=== PATIENT | male | born 1990 | race African-American/Black ===

== ENCOUNTER 2018-05-29 12:39 | Emergency (ER) | payer SELFPAY ==
[2018-05-29 12:41] VITALS: BP 120/81; PULSE 62; RESP 16; TEMP 36.4; O2SAT 100; BMI 31.3
--- NOTE | 2018-05-29 12:50 | ED.RN ---
mood swings, lashing out. has been off zyprexa for several weeks. saw dr at [facility] today per pt was sent here.
--- NOTE | 2018-05-29 12:53 | ED.VISSUMM ---
- ER Visit Summary Date of Service: 05/29/18 Chief Complaint: Prescription refill History of Present Illness: The patient is a 28 M who was sent from the [facility] for prescription refill. He states the process would take too long. He is requesting a refill of his Zyprexa. Physical Examination: Vital signs noted and unremarkable. HEENT exam remarkable for gold caps. Heart is regular without murmur, gallop or rub. Lungs auscultation. Affect is normal. Thought process is normal. Test Results: None Emergency Department Course and Treatment: Prescription for Zyprexa Treatment Plan: Prescription for Zyprexa and follow-up at the [facility] Disposition: Discharged home Impression: Prescription refill This note was generated with Eneedo dictation software. It may contain incorrect words, spelling, and punctuation that were not noted in review of the chart prior to signing ED Disposition - Plan for ED Patient: Disposition: Home or Assisted Living Chief Complaint: Med Refill Instructions: Med Refill Prescriptions: Olanzapine [Zyprexa] 10 mg PO DAILY #30 tab Referrals: [facility] Kimberley Alexandra [Primary Care Provider] -
--- NOTE | 2018-05-29 12:59 | ED.DCSUM_ITS ---
- ER Visit Summary Date of Service: 05/29/18 Chief Complaint: Prescription refill History of Present Illness: The patient is a 28 M who was sent from the [facility] for prescription refill. He states the process would take too long. He is requesting a refill of his Zyprexa. Physical Examination: Vital signs noted and unremarkable. HEENT exam remarkable for gold caps. Heart is regular without murmur, gallop or rub. Lungs auscultation. Affect is normal. Thought process is normal. Test Results: None Emergency Department Course and Treatment: Prescription for Zyprexa Treatment Plan: Prescription for Zyprexa and follow-up at the [facility] Disposition: Discharged home Impression: Prescription refill This note was generated with S[employer]ed App[employer] dictation software. It may contain incorrect words, spelling, and punctuation that were not noted in review of the chart prior to signing ED Disposition - Plan for ED Patient: Disposition: Home or Assisted Living Chief Complaint: Med Refill Instructions: Med Refill Prescriptions: Olanzapine [Zyprexa] 10 mg PO DAILY #30 tab Referrals: [facility] Kimberley Alexandra [Primary Care Provider] -
--- OUTSIDE RECORDS SUMMARY | 2018-08-31 | XMS RPT_ITS ---
:1990 Author Organization [facility] Care Team Providers Name Role Phone Rianna CAGE, Violetta Arce Attending Unavailable Sawyer Gunter Attending Unavailable CLINIC, [facility] Primary Care Unavailable PROBLEMS PROBLEMS No Problem Records FoundPROCEDURES PROCEDURES No Procedure Records FoundRESULTS RESULTS CTPCR Collected: 06/23/2018 Status: F Source: [facility] 1:05 PM [facility] REPOSITORY TYPE CODE TESTS RESULT OUT OF RANGE REFERENCE UNITS LAB SCCTPCR(LO INC) Chlam Urine Source LAB CTPCR1(KJ Negative NC) Unknown Positive C.trachomati s PCR Result Comment: Molecular (PCR) assay performed on the Ross[employer] Idalia 4800 system. LAB CTINT(LOINC) See CT Unknown Interp N C. trachomatis Interp Result Comment: DNA detection by non-culture technique (PCR). Sensitivity testing not available with this method. This organism causes a reportable disease Results have been reported to the [place] [facility] See CT Interp P Performed By: #### CTPCR, NGPCR1 #### [facility] [address] [place] [id number] NGPCR Collected: 06/23/2018 Status: F Source: [facility] 1:05 PM [facility] REPOSITORY TYPE CODE TESTS RESULT OUT OF REFERENCE UNITS RANGE LAB [facility](LOIN C) GC PCR Source Urine LAB NGPCR(LOIN Negative C) N. gonorrhoeae (PCR) Negative Result Comment: Molecular (PCR) assay performed on the Ross[employer] Idalia 4800 System. LAB NGINT(LOINC) See NG Interp N N. gonorrhoeae Interp Result Comment: N. gonorrhoeae DNA not detected. Specimen is presumptive negative for N. gonorrhoeae. A negative result does not preclude Neisseria gonorrhoeae infection because results depend on adequate specimen collection, absence of inhibitors, and sufficient DNA to be detected. See NG Interp N Performed By: #### CTPCR, NGPCR1 #### [place] [address] RPR Collected: 06/23/2018 Status: F Source: [facility] 12:54 PM [facility] REPOSITORY TYPE CODE TESTS RESULT OUT OF RANGE REFERENCE UNITS LAB RPR(LOINC) Non-Reactive RPR Non-Reactive Result Comment: The RPR test is a non- treponemal assay useful as an aid in the diagnosis of primary and secondary syphilis. It converts to positive generally within 2 weeks after the appearance of a lesion. This test is also useful for monitoring response to antibiotic therapy. A positive RPR screening test will be followed by the FTA ABS test. False positive RPR tests may occur in 1) patients with underlying autoimmune disorders, 2) elderly patients, 3) , and 4) other conditions with abnormal serum globulins. Performed By: #### RPR #### [place] [address] EMERGENCY DEPARTMENT Observed: 05/29/2018 Status: F Source: [facility] SUMMARY 12:59 PM [facility] REPOSITORY [facility] Medical Records Department [address] [place] [id number] Emergency Department Summary 05/29/18 1253 MR#: [id number] Acct: [id number] Name: NICOLE CORNELIUS Rep #: [id number] : 1990 28 From: Sawyer Gunter MD PCP: [facility] Status: PRE ER - ER Visit Summary Date of Service: 05/29/18 Chief Complaint: Prescription refill History of Present Illness: The patient is a 28 M who was sent from the [facility] for prescription refill. He states the process would take too long. He is requesting a refill of his Zyprexa. Physical Examination: Vital signs noted and unremarkable. HEENT exam remarkable for gold caps. Heart is regular without murmur, gallop or rub. Lungs auscultation. Affect is normal. Thought process is normal. Test Results: None Emergency Department Course and Treatment: Prescription for Zyprexa Treatment Plan: Prescription for Zyprexa and follow-up at the [facility] Disposition: Discharged home Impression: Prescription refill This note was generated with HoneyComb dictation software. It may contain incorrect words, spelling, and punctuation that were not noted in review of the chart prior to signing ED Disposition - Plan for ED Patient: Disposition: Home or Assisted Living Chief Complaint: Med Refill Instructions: Med Refill Prescriptions: Olanzapine [Zyprexa] 10 mg PO DAILY #30 tab Referrals: Kalin Alexandra,Kimberley Rm [Primary Care Provider] - What to do if you have Problems For any increased pain, shortness of breath, bleeding, nausea or vomiting, chest pain, or any unexpected problems, contact your Primary Care Provider. Call [facility] ([phone]) or report to the closest Emergency Room. Call 911 if necessary. 05/29/18 1259 <Electronically signed by Sawyer Gunter MD> Date Sawyer Gunter MD Cosigner Signature (If Indicated): Date CC: No Primary Care Physician; [facility] ALLERGIES ALLERGIES DATE TYPE / CODE NAME / CODE REACTION SEVERITY SOURCE 02/27/2017 Drug No Known Unknown [facility] Allergy/4160 Allergies/F00 [facility] 92436(SNOMED [id number](RXNOR Repository CT) M) ENCOUNTERS ENCOUNTERS ADMIT/DISCHARGE ACCOUNT NUMBER ADMITTING ENCOUNTER LOCATION SOURCE CLASS 06/23/2018/06/23/19 [id number] Emergency BBuilding:[facility] [place] [address] [place] [address] Repository 05/29/2018/05/29/20 [id number] Emergency [place] [address] ding:ED Repository PAYERS PAYERS ENCOUNTER GUARANTOR PAYER SUBSCRIBER SOURCE 06/23/2018 NICOLE J Primary NICOLE J [facility] BROTHERSDOB: Insurance:SELF PAY BROTHERSDOB: [facility] INSCOPolicy Number: [id number] Repository [facility] Effective [place], [place] Date:2018-06-23 [place] [address] [id number] Name:[id number]: () 05/29/2018 NICOLE J Primary NOT GIVENUNK [place] [id number] Insurance:SELF PAY [place], [place] Number: Effective Repository [id number]: [phone]) Date:2018-05-29 [phone] ()
== END 2018-05-29 13:24 | disposition home or self-care (01) ==
PROVIDERS: Emergency Provider Emergency Medicine
DX: Z76.0 Encounter for issue of repeat prescription (principal); Z72.0 Tobacco use
CPT/HCPCS: 99282

== ENCOUNTER 2018-09-04 12:00 | Emergency (ER) | payer SELFPAY ==
[2018-09-04 12:02] VITALS: BP 134/84; PULSE 83; RESP 16; TEMP 36.6; O2SAT 99; BMI 27.6
--- NOTE | 2018-09-04 12:14 | ED.VISSUMM ---
- ER Visit Summary Date of Service: 09/04/18 Chief Complaint: Medication refill History of Present Illness: The patient is a 28 M who presents for medication refill of his Zyprexa and Depakote. Patient states he took his last dose is today. Patient states he normally takes Zyprexa 10 mg daily and the lowest dose of Depakote twice daily. Patient states he was unable to get an appointment at the [facility] until the end of next month. Patient denies any other symptoms. Physical Examination: Vital signs are stable. Patient is afebrile. Patient is in no acute distress. Oral mucosa is pink and moist. Neck is supple. Trachea is midline. There is no JVD noted. Heart was regular rate and rhythm. Lungs are clear and equal bilateral. Abdomen is soft. Bowel sounds are normal. There is no tenderness. There is no guarding noted. Skin is warm dry. Cranial nerves II through XII are intact. There are no focal motor or sensory deficits noted. The remaining physical exam is within normal limits. Emergency Department Course and Treatment: Patient was given a month's supply of his medications. Patient was instructed to follow-up with his primary care physician within the next month for further refills of his medications. Patient understood and was agreeable with the plan. All questions were answered. Disposition: Discharge home Impression: Medication refill This note was generated with [employer] dictation software. It may contain incorrect words, spelling, and punctuation that were not noted in review of the chart prior to signing ED Disposition - Plan for ED Patient: Diagnosis: Medication refill Instructions: Med Refill Prescriptions: Olanzapine [Zyprexa] 10 mg PO DAILY #30 tab Divalproex Sodium [Depakote] 125 mg PO BIDCM #60 tab [facility] - 1 Week
--- NOTE | 2018-09-04 12:18 | ED.DCSUM_ITS ---
- ER Visit Summary Date of Service: 09/04/18 Chief Complaint: Medication refill History of Present Illness: The patient is a 28 M who presents for medication refill of his Zyprexa and Depakote. Patient states he took his last dose is today. Patient states he normally takes Zyprexa 10 mg daily and the lowest dose of Depakote twice daily. Patient states he was unable to get an appointment at the [facility] until the end of next month. Patient denies any other symptoms. Physical Examination: Vital signs are stable. Patient is afebrile. Patient is in no acute distress. Oral mucosa is pink and moist. Neck is supple. Trachea is midline. There is no JVD noted. Heart was regular rate and rhythm. Lungs are clear and equal bilateral. Abdomen is soft. Bowel sounds are normal. There is no tenderness. There is no guarding noted. Skin is warm dry. Cranial nerves II through XII are intact. There are no focal motor or sensory deficits noted. The remaining physical exam is within normal limits. Emergency Department Course and Treatment: Patient was given a month's supply of his medications. Patient was instructed to follow-up with his primary care physician within the next month for further refills of his medications. Patient understood and was agreeable with the plan. All questions were answered. Disposition: Discharge home Impression: Medication refill This note was generated with [employer] dictation software. It may contain incorrect words, spelling, and punctuation that were not noted in review of the chart prior to signing ED Disposition - Plan for ED Patient: Diagnosis: Medication refill Instructions: Med Refill Prescriptions: Olanzapine [Zyprexa] 10 mg PO DAILY #30 tab Divalproex Sodium [Depakote] 125 mg PO BIDCM #60 tab [facility] - 1 Week
== END 2018-09-04 12:33 | disposition home or self-care (01) ==
PROVIDERS: Emergency Provider Emergency Medicine
DX: Z76.0 Encounter for issue of repeat prescription (principal); F31.9 Bipolar disorder, unspecified; Z72.0 Tobacco use
CPT/HCPCS: 99282

== ENCOUNTER 2018-10-30 11:37 | Emergency (ER) | payer MEDICAID, SELFPAY ==
[2018-10-30 11:38] VITALS: BP 138/71; PULSE 82; RESP 18; TEMP 36.9; O2SAT 98; BMI 26.8
--- NOTE | 2018-10-30 12:12 | ED.DCSUM_ITS ---
- ER Visit Summary Date of Service: 10/30/18 Chief Complaint: Cough, sore throat, sinus pressure History of Present Illness: The patient is a 28 M reports seasonal allergies and cough with yellow sputum production over the last 3 or 4 days. He subjectively had fever. He is been taking Kiki without improvement. 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 Physical Examination: Vital signs unremarkable. He is afebrile. Patient sitting upright in bed no acute distress. He is nontoxic appearing. Head neck examination was TMs to be clear. He has moist mucous membranes. There is slight posterior pharyngeal drainage. Heart is regular rate and rhythm. Lung sounds are clear. Abdomen is soft nontender. Test Results: Two-view chest x-ray is unremarkable. Emergency Department Course and Treatment: I discussed with the patient that his symptoms are viral in nature. He will be given a prescription for Sudafed to help with his symptoms. He is written off work for today. Treatment Plan: [] Disposition: Discharge Impression: Viral URI This note was generated with [facility] dictation software. It may contain incorrect words, spelling, and punctuation that were not noted in review of the chart prior to signing ED Disposition - Plan for ED Patient: Disposition: Home or Assisted Living Instructions: ED Upper Resp Infec No Abx Tx Prescriptions: Pseudoephedrine HCl [Sudafed] 30 mg PO BID PRN PRN #14 tablet PRN Reason: Congestion [facility]errals: [facility] [Primary Care Provider] - 1 Week if not improving
--- NOTE | 2018-10-30 12:26 | RAD_ITS ---
STUDY: X-RAY CHEST REASON FOR EXAM: Male, 28 years old. Sinus pressure. Sore throat. TECHNIQUE: PA and lateral views of the chest. COMPARISON: None. FINDINGS: The lungs are clear and expanded. Scattered calcified granulomas. There is no demonstrated pleural abnormality. Normal size heart. Normal mediastinum and radha. Normal visualized pulmonary arteries. Normal visualized aortic arch and descending thoracic aorta. Normal visualized thoracic spine. Normal visualized ribs, clavicles, and shoulders. There is no demonstrated abnormality of the visualized soft tissue structures of the upper abdomen. RAD/Chest PA and Lateral IMPRESSION: Normal x-ray examination of the chest. No acute abnormality is seen. Electronically Signed: Gonsalo Schrader, at 13:08 EDT , Service support ,
[2018-10-30 12:39] VITALS: BP 107/68; PULSE 77; RESP 16; TEMP 36.8; O2SAT 98
[2018-10-30 13:00] VITALS: BP 121/72; PULSE 66; RESP 16; TEMP 36.8; O2SAT 99
[2018-10-30 14:06] VITALS: BP 100/53; PULSE 76; RESP 16; TEMP 36.8; O2SAT 97
== END 2018-10-30 14:11 | disposition home or self-care (01) ==
PROVIDERS: Emergency Provider Emergency Medicine
DX: J06.9 Acute upper respiratory infection, unspecified (principal); Z72.0 Tobacco use; F31.9 Bipolar disorder, unspecified
CPT/HCPCS: 71046; 99282

== ENCOUNTER 2019-08-14 10:25 | Emergency (ER) | payer OTHER, MEDICAID, SELFPAY ==
[2019-08-14 10:27] VITALS: BP 129/60; PULSE 78; RESP 17; TEMP 36.9; O2SAT 98; BMI 28.8
--- NOTE | 2019-08-14 10:42 | RAD_ITS ---
STUDY: X-RAY - LUMBAR SPINE REASON FOR EXAM: Male, 29 years old. Low back pain after overexertion at work TECHNIQUE: 3 view(s) of the lumbar spine were obtained. COMPARISON: None FINDINGS: Normal lumbar lordosis. There is no substantial scoliosis. There is a normal alignment of the vertebrae. Normal vertebral bodies and endplates. Normal disc space heights. The soft tissue structures are unremarkable. RAD/Lumbar Spine 2 or 3 Views IMPRESSION: Normal x-ray examination of the lumbar spine. Electronically Signed: Fredy Kim MD at 11:58 EST , Service support ,
--- NOTE | 2019-08-14 10:43 | ED.DCSUM_ITS ---
- ER Visit Summary Date of Service: 08/14/19 Chief Complaint: Back pain History of Present Illness: The patient is a 29 M who presents with back pain that has been constant for the past 5 days. Patient states he was doing lifting at work 5 days ago when he felt pain in his left lower back. Patient states the pain radiates down his left hip. Patient dates initially the pain radiating past his hip into his thigh but currently he only has radiation of pain into his left hip. Patient states he has been taking Aleve with some relief. Patient describes his pain as sharp. Patient denies any radiation of the pain into his abdomen. Patient denies any bowel or bladder changes. Patient denies any saddl e anesthesia. Physical Examination: Vital signs are stable. Patient is afebrile. Patient is in no acute distress. Musculoskeletal exam shows tenderness over the left lumbar paraspinal muscles. There is some mild midline tenderness. There is no bony crepitance or step-off. There is no edema or ecchymosis. There is some spasm of the left lumbar paraspinal muscles. Range of motion was slightly limited in all motion secondary to pain. Strength is 5/5 bilaterally in the upper and lower extremities. There are no sensory deficits. Patient was able to heel and toe walk without difficulty. Test Results: X-rays of the lumbar spine were obtained. There is no acute fracture or spondylolisthesis. These were interpreted by myself and the radiologist. Emergency Department Course and Treatment: Patient was advised of his x-ray findings. Patient was instructed to use ice to the area. Patient was given a prescription for Naprosyn. Patient was instructed to follow-up with his primary care physician or workman's comp physician in 5 to 7 days. Patient understood and was agreeable with the plan. All questions were answered. Disposition: Discharge home Impression: Lumbosacral strain This note was generated with [employer] dictation software. It may contain incorrect words, spelling, and punctuation that were not noted in review of the chart prior to signing ED Disposition - Plan for ED Patient: Disposition: Home or Assisted Living Diagnosis: Lumbosacral strain Instructions: Back Sprain/Strain Prescriptions: Naproxen [Naprosyn] 500 mg PO BID PRN #20 tab Prescription Printed Referrals: Care Physician,No Primary [Primary Care Provider] - Corporate,Care [GROUP OF PHYSICIANS] - 5-7 Days
[2019-08-14 13:04] VITALS: BP 114/71; PULSE 59; RESP 16; O2SAT 99
== END 2019-08-14 13:05 | disposition home or self-care (01) ==
PROVIDERS: Emergency Provider Emergency Medicine
DX: S39.012A Strain of muscle, fascia and tendon of lower back, initial encounter (principal); X50.9XXA Other and unspecified overexertion or strenuous movements or postures, initial encounter; Y93.9 Activity, unspecified; Y92.89 Other specified places as the place of occurrence of the external cause; Y99.0 Civilian activity done for income or pay
CPT/HCPCS: 72100; 99282

== ENCOUNTER 2019-09-17 11:20 | Emergency (ER) | payer MEDICAID, SELFPAY ==
[2019-08-30 16:37] VITALS: BMI 28.8
[2019-09-17 11:23] VITALS: BP 134/75; PULSE 69; PULSE 72; RESP 17; RESP 18; TEMP 36.3; O2SAT 98; O2SAT 99; BMI 29.0
--- NOTE | 2019-09-17 11:46 | RAD_ITS ---
STUDY: X-RAY CHEST REASON FOR EXAM: Male, 29 years old. PT C/O COUGH, SOB, AND SORE THROAT THAT STARTED YESTERDAY. TECHNIQUE: Single AP portable view of the chest. COMPARISON: 10/30/2018 FINDINGS: The lungs are clear and expanded. There is no demonstrated pleural abnormality. Normal size heart. Normal mediastinum and radha. Normal visualized pulmonary arteries. Normal visualized aortic arch and descending thoracic aorta. Normal visualized thoracic spine. Normal visualized ribs, clavicles, and shoulders. There is no demonstrated abnormality of the visualized soft tissue structures of the upper abdomen. RAD/Chest 1 View (Portable) IMPRESSION: Normal x-ray examination of the chest. Electronically Signed: Cleveland Damon MD at 12:10 EDT Tel , Service support ,
--- NOTE | 2019-09-17 11:49 | ED.VIS.GEN ---
History of Present Illness Chief Complaint: Cough Informant: Patient Onset: Yesterday Narrative: Patient states that yesterday at work he began to have sore throat burning in his chest and dry cough and a shortness of breath sensation. This is persisted. He notes associated generalized myalgias. No significant sputum production. Rhinorrhea. No fevers or rashes. No known lung conditions. He is otherwise been healthy. Past Medical History - Allergies and Home Meds Allergies/Adverse Reactions: Allergies No Known Allergies Allergy (Verified 09/17/19 11:21) Primary Care Physician: Angela Jasso MD [STAFF PHYSICIAN] - As Needed Smoking Status: Former smoker Review of Systems General: Denies: Chills, Fever, Sweats Eyes: Denies: Visual changes - bilaterally, Diplopia ENT: Reports: Rhinorrhea, Sore throat Cardiovascular: Denies: Chest pain, Palpitations Respiratory: Reports: Dyspnea, Cough. Denies: Dyspnea on exertion Gastrointestinal: Denies: Abdominal pain, Nausea, Vomiting, Diarrhea, Melena, Hematochezia Genitourinary: Denies: Dysuria, Hematuria, Frequency Musculoskeletal: Reports: Myalgias. Denies: Back pain, Extremity Pain Skin: Denies: Rash, Wounds Neurological: Denies: Headache, Weakness, Numbness Physical Exam Vital Signs/Narrative: Vital Signs Temp Pulse Resp BP Pulse Ox 09/17/19 11:23 97.4 F L 72 18 134/75 H 99 Inital Vital Signs reviewed: Yes General: Well nourished, Well developed, No Acute Distress Head: Normocephalic, Atraumatic Eyes: Perrl, EOMI ENT: Moist mucous membranes, No rhinorrhea Neck: Supple, Nontender Cardiovascular: Regular rate, Regular rhythm, No murmurs Respiratory: No distress, CTA bilaterally, Chest nontender Abdomen: Soft, Nontender, Nondistended, Normal bowel sounds Back: Nontender, Normal Inspection Extremities: Nontender, No edema Skin: Normal color, No rash Neurological: Alert, Oriented x3, Cranial nerves II-XII grossly intact, Normal Strength, Normal Sensation Psychological: Normal affect, Normal Mood Diagnostic/Tx/Re-eval - Medical Decision Making Chest x-ray is normal. Patient be discharged home with supportive care. We talked the possibility of this could be a coved presentation. He was instructed to self isolate to monitor and return if worsening or concerns. Patient is being discharged under pandemic conditions under declared global, national and state disaster activation, with limited medical resources, patient, community understands this. Results discussed in layman terms to patient satisfaction all questions answered in layman's terms. Patient understands importance of follow-up care as directed. The patient has been instructed to return to the ED immediately if new symptoms, problems, or questions occur. We mutually agreed with the plan of disposition. The patient understands that they may call or return any questions or concerns at any time. ED Disposition - Plan for ED Patient: Disposition: Home or Assisted Living Diagnosis: Viral respiratory illness Instructions: ED Viral Syndrome Referrals: Angela Jasso MD [STAFF PHYSICIAN] - As Needed
== END 2019-09-17 12:51 | disposition home or self-care (01) ==
PROVIDERS: Emergency Provider Emergency Medicine
DX: B34.9 Viral infection, unspecified (principal)
CPT/HCPCS: 71045; 99282

== ENCOUNTER 2020-03-02 20:47 | Emergency (ER) | payer MEDICAID, SELFPAY ==
[2019-09-21 10:40] VITALS: BMI 29.0
[2020-03-02 20:48] VITALS: BP 135/77; PULSE 64; RESP 18; TEMP 36.2; O2SAT 95; BMI 28.7
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
== END 2020-03-02 22:50 | disposition home or self-care (01) ==
LOC: ED 21:01
PROVIDERS: Emergency Provider Emergency Medicine
DX: S62.111A Displaced fracture of triquetrum [cuneiform] bone, right wrist, initial encounter for closed fracture (principal); V00.131A Fall from skateboard, initial encounter; Y93.51 Activity, roller skating (inline) and skateboarding; Z87.891 Personal history of nicotine dependence
CPT/HCPCS: 25635; 73110; 99282

== ENCOUNTER 2020-10-15 09:00 | Outpatient (RCR) | payer MEDICAID, SELFPAY ==
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
--- NOTE | 2020-07-23 17:19 | HP.PTREVAL_ITS ---
GERTRUDIS PEOPLES, It has been my pleasure to treat NICOLE Padilla BROTHERS over the last 11 visits for Right THR, Left foot ORIF. Please see the progress note below for an update on the physical therapy plan of care! Subjective: Patient reports that he is happy with his progress- he feels 40% back to where he wants to be at 65% of where he feels he shoulder be at this point. Gets his ankle brace off August 17 then can do more.He is working with the prosthetis. Objective/Function: Ambulation: improving- can ambulate with prosthesis. Balanc e: Wide JEFF: 30 sec with eyes open and eyes closed no LOB. 10 sec eyes open/closed with narrow. Left leg in front was not as good- 3-5 seconds without loss of balance. Stairs: asc/desc non recip with 1 HR- no LOB. Strength: 5/5 in bilateral LE Plan Plan: IE: 3x a week for 2 weeks then 2x a week for 2 weeks- after prosethsis arrives- Continue current HEP. 06/24/2020: Focus on LE strength, proprioception, gait and functional mobility. HEP given of SLS in mirror and ambulation with single axillary crutch. 07/23/2020: 1x a week for 4 weeks Goals Goal 1:: Patient will be I with HEP and progression Goal Time Frame: 4-6 Weeks Goal 2:: Patient will ambulate >500 feet with LRD and a normalized gait pattern Goal Time Frame: 4-6 Weeks Goal 3:: Patient will asc/desc 8 stairs recip with 1 HR Goal Time Frame: 4-6 Weeks Anticipated Interventions Patient/Client Instruction: Educate patient on: Benefits of Fitness Program Therapeutic Exercise to Include: Strength training, Endurance training, Balance training, Coordination, Agility training, Body mechanics, Postural training, Flexibilty training, Gait and locomotor training, Neuromotor development, Passive ROM, Active ROM, Dynamic Lumbar Stabilization, Scapular Strength/Stabilization For the Purpose of:: To improve ability to perform ADL's, To increase tolerance to activity/condition/position Functional Training to Include: ADL Training, Gait training For the Purpose of:: To improve performance and independence with ADL's Assistive Devices: Cane, Crutches Prosthetic, Protective Equipment: Braces Comment: Prosethsis For the Purpose of:: To improve performance and independence with ADL's TENS: Yes Cryotherapy (ice pack, ice massage): Yes Thermo therapy (hot pack): Yes Please do not hesitate to contact me at [phone] by phone or if you have questions or concerns regarding this new plan of care! Sincerely, ASIF CastilloT
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
--- NOTE | 2020-11-04 09:32 | HP.PT.NRP ---
NICOLE CORNELIUS was seen in my office for initial evaluation on 06/11/20. The following Plan of Care was established for this patient: Initial Frequency: 3x /Week Initial Duration: 4 Weeks Patient/Client Instruction: Educate patient on: Benefits of Fitness Program Therapeutic Exercise to Include: Strength training, Endurance training, Balance training, Coordination, Agility training, Body mechanics, Postural training, Flexibilty training, Gait and locomotor training, Neuromotor development, Passive ROM, Active ROM, Dynamic Lumbar Stabilization, Scapular Strength/Stabilization For the Purpose of:: To improve ability to perform ADL's, To increase tolerance to activity/condition/position Functional Training to Include: ADL Training, Gait training For the Purpose of:: To improve performance and independence with ADL's Assistive Devices: Cane, Crutches Prosthetic, Protective Equipment: Braces Comment: Prosethsis For the Purpose of:: To improve performance and independence with ADL's TENS: Yes Cryotherapy (ice pack, ice massage): Yes Thermo therapy (hot pack): Yes This patient was last seen in our office . Pertinent comments regarding their Physical therapy will appear below: Discharged for non-compliance. Pt has not attended or called for therapy in 3 visits. Appropriate to be d/c- return to MD for further evaluation as needed. At this point I will be discontinuing this patient from physical therapy. I would be happy to see this patient again in the future if found appropriate by the physician. Thank you! Paty Osborne DPT
== END 2020-10-15 19:00 | disposition home or self-care (01) ==
LOC: PT 09:00
DX: S52.501D Unspecified fracture of the lower end of right radius, subsequent encounter for closed fracture with routine healing (principal); Z48.89 Encounter for other specified surgical aftercare
CPT/HCPCS: 97110; 97140; 97162; 97164; 97166; 97530

== ENCOUNTER 2020-12-17 06:58 | Emergency (ER) | payer MEDICAID, SELFPAY ==
[2020-12-17 06:58] VITALS: BP 117/77; PULSE 93; RESP 15; TEMP 36.3; O2SAT 98; BMI 25.1
--- NOTE | 2020-12-17 07:31 | EX.ED.DYSGE1 ---
HPI History of Present Illness Chief Complaint: Nausea/Vomiting/Diarrhea Narrative Narrative: 30-year-old male presenting with diarrhea for about a week. He states that overnight he was having nausea and vomiting several times. He states that he does not have abdominal pain. He has not been on any recent antibiotics. He has not eaten anything exotic or traveled. He denies fever or chills. Patient does admit to having some dysuria which started sometime mid week. He states he has not had sexual intercourse with his or extramarital sex. He does not have history of UTI. [facility] Medical History Hay fever NECK AND BACK PAIN Home Medications Escitalopram Oxalate 10 mg PO DAILY 09/17/19 [History Last Taken Unknown] lamotrigine 100 mg PO DAILY 09/17/19 [History Last Taken Unknown] cephalexin 500 mg PO BID 7 Days #14 cap 12/17/20 [Rx Last Taken Unknown] ondansetron HCl [Zofran] 4 mg PO Q8H PRN #20 tab 12/17/20 [Rx Last Taken Unknown] Allergy/AdvReac Type Severity Reaction Status Date / Time No Known Allergies Allergy Verified 12/17/20 07:01 Social History Smoking Status: Current every day smoker tobacco type: cigarettes alcohol intake: never ROS ROS ED Constitutional Constitutional ED: Denies chills or fever(s) Eyes Eyes: Denies blurry vision or diplopia ENT ENT ED: Denies rhinorrhea or sore throat Cardiovascular Cardiovascular: Denies chest pain or palpitations Respiratory/Chest Respiratory/Chest: Denies cough, dyspnea or sputum Gastrointestinal Gastrointestinal: Reports diarrhea, nausea and vomiting; Denies abdominal pain Genitourinary Genitourinary ED: Reports dysuria; Denies hematuria or urinary frequency Musculoskeletal Musculoskeletal: Denies arthralgias or myalgias Integumentary Denies abscess or rash Neurologic Neurologic: Denies headache(s), paresthesias or weakness EXAM Physical Exam Const Vital Signs: 12/17/20 06:58 12/17/20 09:03 12/17/20 09:54 Temperature 97.3 F L Temperature Source Temporal Pulse Rate 93 54 L Respiratory Rate 15 16 16 Blood Pressure 117/77 100/63 Blood Pressure Mean 90 75 Pulse Ox 98 100 Oxygen Delivery Method Room Air Room Air Positive well nourished General Appearance ED: NAD HEENT Reports moist mucous membranes Negative for trauma Eyes PERRL and EOMs intact bilaterally General Eye ED: Negative for pale conjunctiva or scleral icterus Resp normal respiratory effort and clear to auscultation bilaterally Cardio regular rate and regular rhythm GI normal to inspection, nondistended, normoactive bowel sounds Extremity General Extremety ED: Negative for edema or tenderness General Extremity: Negative for edema Neuro oriented x3 Sensorium / Orientation: alert Psych mental status grossly normal Skin no rashes or lesions noted and no wounds MDM MDM MDM Narrative Medical decision making narrative: Patient presenting with nausea, vomiting, diarrhea and also complains of dysuria. Patient denies any sexual intercourse either with his or anyone else. Patient is given Zofran and I did check lab work. Patient has no leukocytosis. Renal function electrolytes are normal. LFTs are normal. Urinalysis shows 25 leukocyte esterase 0-5 WBCs and rare bacteria. This was discussed with the patient and he prefers to be treated for UTI since he is symptomatic. He will be started on Keflex with first dose in the ED. Urine culture was sent. Patient was sent home with antiemetics and given return precautions. Impression: 1. Nausea/vomiting 2. Diarrhea 3. UTI Lab Data Attestation: I reviewed the patient's lab results. Labs: Laboratory Results - last 24 hr 12/17/20 12/17/20 12/17/20 07:10 07:10 08:05 WBC 3.7 L RBC 4.72 Hgb 14.0 Hct 42.8 MCV 90.7 MCH 29.7 MCHC 32.7 RDW Std Deviation 43.1 RDW Coeff of Samantha 13.0 Plt Count 214 MPV 11.0 Immature Gran % (Auto) 0.000 Neut % (Auto) 38.9 L Lymph % (Auto) 40.5 [place] % (Auto) 13.9 H Eos % (Auto) 6.2 H Baso % (Auto) 0.5 Absolute Neuts (auto) 1.5 L Absolute Lymphs (auto) 1.51 Nucleated RBC % 0 Sodium 138 Potassium 3.9 Chloride 103 Carbon Dioxide 27.0 Anion Gap 8 BUN 17 Creatinine 1.03 Estim Creat Clear Calc 108.28 Est GFR (MDRD) Af Amer 109 Est GFR (MDRD) Non-Af 90 BUN/Creatinine Ratio 16.5 Glucose 97 Calcium 8.8 Total Bilirubin 0.30 AST 28 ALT 27 Alkaline Phosphatase 78 Total Protein 7.7 Albumin 4.0 Globulin 3.7 Albumin/Globulin Ratio 1.1 Lipase 91 Urine Color Yellow Urine Clarity Sl. Cloudy Urine pH 6.0 Ur Specific [employer] 1.020 Urine Protein 15 H Urine Glucose (UA) Normal Urine Ketones 5 H Urine Occult Blood Negative Urine Nitrite Negative Urine Bilirubin Negative Urine Urobilinogen Normal Ur Leukocyte Esterase 25 H Urine RBC 0 SEEN Urine WBC 0-5 SEEN Ur Squamous Epith Cells 0 SEEN Urine Bacteria RARE Urine Mucus 2+ Discharge Plan Triage Chief Complaint: Nausea/Vomiting/Diarrhea ED Provider: Triston Caldera Dx/Rx/DC Orders Instructions: ED Bladder Infection, Male (Adult), ED Vomiting and Diarrhea ... Prescriptions: New cephalexin 500 mg capsule 500 mg PO BID 7 Days Qty: 14 RF: 0 ondansetron HCl [Zofran] 4 mg tablet 4 mg PO Q8H PRN (Reason: nausea and vomiting) Qty: 20 RF: 0 No Action lamotrigine 100 MG tablet 100 mg PO DAILY RF: 0 Escitalopram Oxalate 10 MG tablet 10 mg PO DAILY RF: 0 Primary Care Provider: Care Physician,No Primary Referrals: Triston Caldera DO [Emergency Provider] - Kaveh Murphy MD [STAFF PHYSICIAN] - As Needed Care Physician,No Primary [Primary Care Provider] - Disposition Disposition: Home, Self Care Discharge Date/Time: 12/17/20 09:58
[2020-12-17] MEDS: Ondansetron 4 MG/2 ML Vial IV (07:38)
[2020-12-17] MEDS: 0.9% Normal Saline 1,000 ML 1000 ML IV (07:38)
[2020-12-17 07:42] LABS: Absolute Lymphocyte Count 1.51 X10^3/uL (0.83-4.51); Absolute Neutrophil Count 1.5 X10^3/uL (2.0-7.7); Basophil# 0.02 X10^3/uL; Basophil% 0.5 % (0-1); Eosinophil# 0.23 X10^3/uL; Eosinophils% 6.2 % (0-5); Hematocrit 42.8 % (40-54); Lymphocyte # 1.51 X10^3/ul (0.83-4.51); Lymphocyte % 40.5 % (19-41); Mean Corp Hgb Conc 32.7 g/dL (32-36); Mean Corpuscular Hgb 29.7 pg (27.0-32.0); Mean Corpuscular Volume 90.7 fL (80-94); Monocyte# 0.52 X10^3/uL; Monocyte% 13.9 % (0-10); NRBC Flagged by Analyzer 0 % (0-5); Neutrophil # 1.45 X10^3/uL (2.7-7.7); Neutrophil % 38.9 % (47-70); Platelet Count 214 K/mm3 (150-450); RBC Distribution Width SD 43.1 fl (35.1-43.9); Red Blood Count 4.72 M/mm3 (4.6-6.2); White Blood Count 3.7 K/mm3 (4.4-11.0)
[2020-12-17 07:53] LABS: ALB/GLOB Ratio 1.1 RATIO (0.9-2.4); AST(SGOT) 28 U/L (15-37); Alanine Aminotransfer ALT/SGPT 27 U/L (16-61); Alkaline Phosphatase 78 U/L (45-117); Anion Gap 8 (5-15); BUN 17 mg/dL (7-18); BUN/Creat Ratio 16.5 RATIO (10-20); Calcium,Total 8.8 mg/dL (8.5-10.1); Chloride 103 mmol/L (98-107); Creatinine, Serum 1.03 mg/dL (0.70-1.30); EST Glomerular Filtration Rate 90 mL/min (>60); Est Glom Filt Rate - Afr Amer 109 mL/min (>60); Estimated Creatinine Clearance 108.28 ml/min; Globulin 3.7 g/dL (2.2-4.2); Glucose 97 mg/dL (74-106); Lipase 91 U/L (73-393); Potassium 3.9 mmol/L (3.5-5.1); Protein, Total 7.7 g/dL (6.4-8.2); Sodium Level 138 mmol/L (136-145)
[2020-12-17 08:14] LABS: Red Blood Cells-Urine 0 SEEN /hpf (0-5); Squamous Epithelial Cells - UA 0 SEEN /hpf (0-5)
[2020-12-17 08:17] LABS: Color, Urine Yellow (Yellow); Glucose, Dipstick Normal (Normal); Ketone-Dipstick 5 mg/dl (Negative); Leukocyte Esterase-Dipstick 25 /ul (Negative); Nitrite-Dipstick Negative (Negative); Occult Blood-Urine Negative /ul (Negative); Protein-Dipstick 15 mg/dl (Negative); Urine Bilirubin Dipstick Negative (Negative); Urine Clarity Sl. Cloudy (Clear); Urine Urobilinogen Normal (Normal)
[2020-12-17 08:24] LABS: Bacteria RARE /hpf (None Seen); Mucous, Urine 2+ /hpf (<or=2+); White Blood Cells 0-5 SEEN /hpf (0-5)
[2020-12-17 09:03] VITALS: BP 100/63; PULSE 54; RESP 16; O2SAT 100
[2020-12-17] MEDS: Cephalexin 250 MG Capsule 500 MG PO (09:50)
[2020-12-17 09:54] VITALS: RESP 16
== END 2020-12-17 09:58 | disposition home or self-care (01) ==
PROVIDERS: Emergency Provider Student in an Organized Health Care Education/Training Program
DX: R11.2 Nausea with vomiting, unspecified (principal); R19.7 Diarrhea, unspecified; N39.0 Urinary tract infection, site not specified; F17.210 Nicotine dependence, cigarettes, uncomplicated; Z79.899 Other long term (current) drug therapy
CPT/HCPCS: 80053; 81001; 83690; 85025; 87086; 87088; 96361; 96374; 99285; J7030; A4216; J2405

== ENCOUNTER 2021-03-08 10:30 | Outpatient (RCR) | payer MEDICAID, SELFPAY ==
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
--- NOTE | 2021-06-28 09:38 | HP.PT.NRP ---
NICOLE CORNELIUS was seen in my office for initial evaluation on 02/10/21. The following Plan of Care was established for this patient: Initial Frequency: 2-3x /Week Initial Duration: 4-6 Weeks Patient/Client Instruction: Educate patient on: Condition, Plan of Care For the Purpose of:: To improve self management Therapeutic Exercise to Include: Strength training, Endurance training, Balance training, Gait and locomotor training, Dynamic Lumbar Stabilization For the Purpose of:: To decrease pain, To improve muscle performance and motor function Cryotherapy (ice pack, ice massage): Yes For the Purpose of:: To decrease pain This patient was last seen in our office . Pertinent comments regarding their Physical therapy will appear below: Pt was treated for 2 PT visits for R CHERELLE through the date of 03/08/21. Pt has not returned today and is therefore discontinued at this time. At this point I will be discontinuing this patient from physical therapy. I would be happy to see this patient again in the future if found appropriate by the physician. Thank you! Cecil Trejo, PT, ATC Balance/Gait/Functional tests - Balance/Special Test Scores Lower Extremity Functional Score: 24
== END 2021-03-08 19:00 | disposition home or self-care (01) ==
LOC: PT 10:30
DX: Z47.1 Aftercare following joint replacement surgery (principal); Z96.649 Presence of unspecified artificial hip joint
CPT/HCPCS: 97110; 97161

== ENCOUNTER 2022-05-16 11:52 | Outpatient (REF) | payer SELFPAY ==
[2022-05-16 11:53] VITALS: BP 129/89; PULSE 87; RESP 16; TEMP 36.9; O2SAT 99; BMI 24.3
--- NOTE | 2022-05-16 12:04 | CM.ED ---
From shelter. Needs medical clearance. No social work needs at this time. Anca DE LEÓN
--- NOTE | 2022-05-16 12:44 | EKG12_ITS ---
Test Reason : CLEARENCE Blood Pressure : / mmHG Vent. Rate : 061 BPM Atrial Rate : 061 BPM P-R Int : 120 ms QRS Dur : 090 ms QT Int : 412 ms P-R-T Axes : 034 001 040 degrees QTc Int : 414 ms Normal sinus rhythm Normal ECG Confirmed by BETHANY CAGE, SEVERINO ([id number]), news videotape editor AALIYAH ERICKSON ([id number]) on 05/18/2022 8:49:44 AM Referred By: Confirmed By:SEVERINO SIMS MD
[2022-05-16 12:46] LABS: Absolute Lymphocyte Count 1.19 X10^3/uL (0.83-4.51); Absolute Neutrophil Count 2.3 X10^3/uL (2.0-7.7); Basophil# 0.02 X10^3/uL; Basophil% 0.5 % (0-1); Eosinophil# 0.05 X10^3/uL; Eosinophils% 1.2 % (0-5); Hemoglobin 13.7 g/dL (13.0-16.5); Lymphocyte # 1.19 X10^3/ul (0.83-4.51); Lymphocyte % 29.6 % (19-41); Mean Corp Hgb Conc 32.6 g/dL (32-36); Mean Corpuscular Hgb 29.7 pg (27.0-32.0); Mean Corpuscular Volume 90.9 fL (80-94); Mean Platelet Vol. 10.9 fl (6.2-12.0); Monocyte# 0.47 X10^3/uL; Monocyte% 11.7 % (0-10); NRBC Flagged by Analyzer 0 % (0-5); Neutrophil # 2.28 X10^3/uL (2.7-7.7); Neutrophil % 56.8 % (47-70); Platelet Count 207 K/mm3 (150-450); RBC Distribution Width CV 12.8 % (11.6-14.6); RBC Distribution Width SD 41.9 fl (35.1-43.9); Red Blood Count 4.62 M/mm3 (4.6-6.2)
--- NOTE | 2022-05-16 12:56 | CM.ED ---
SCOTT CHAVEZ called Litzy [facility] at [facility]. She assessed patient on Monday. On Monday patient denied SI and denied every being suicidal. Per Litzy patient scored a 0 on the Crisp screen. Litzy said that patient voiced he wanted attention and indicated he had a whole host of things going on medically but refused to sign a MERI thus the senior living staff was unable to verify. Litzy said that patient was observed by senior living staff to be talking to patient not present and his girlfriend had called the Crisis team about him. Litzy indicated that patient's presentation was for psychosis. Anca DE LEÓN
[2022-05-16 12:58] LABS: Alcohol, Blood (Medical)-Serum < 3.0 mg/dL
[2022-05-16 13:00] LABS: Anion Gap 8 (5-15); BUN 18 mg/dL (7-18); BUN/Creat Ratio 17.6 RATIO (10-20); Calcium,Total 9.7 mg/dL (8.5-10.1); Chloride 106 mmol/L (98-107); Creatinine, Serum 1.02 mg/dL (0.70-1.30); EST Glomerular Filtration Rate 90 mL/min (>60); Est Glom Filt Rate - Afr Amer 109 mL/min (>60); Estimated Creatinine Clearance 107.35 ml/min; Glucose 83 mg/dL (74-106); Potassium 3.8 mmol/L (3.5-5.1); Sodium Level 138 mmol/L (136-145)
--- NOTE | 2022-05-16 13:10 | ED.RN ---
PER DR HARDY VERBAL ORDER PT DOES NOT NEED A SITTER AT THIS TIME.
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
[2022-05-16 13:15] VITALS: PULSE 74; RESP 16; O2SAT 99
[2022-05-16 13:15] LABS: Amphetamine Urine VISTA NEGATIVE (<1000 ng/mL); Barbiturate Urine VISTA NEGATIVE (< 200 ng/mL); Benzodiazepine Urine VISTA NEGATIVE (< 200 ng/mL); Cocaine Urine VISTA NEGATIVE (< 300 ng/mL); Ecstacy Urine VISTA NEGATIVE (< 500 ng/mL); Methadone Urine VISTA NEGATIVE (< 300 ng/mL); PCP Urine VISTA NEGATIVE (< 25 ng/mL); THC Urine VISTA NEGATIVE (< 50 ng/mL); Vista UDS pH Range 6
[2022-05-16 13:18] LABS: AST(SGOT) 20 U/L (15-37); Alanine Aminotransfer ALT/SGPT 24 U/L (16-61); Albumin, Serum 4.3 g/dL (3.2-5.0); Alkaline Phosphatase 74 U/L (45-117); Bilirubin, Direct 0.22 mg/dL (0.00-0.30); Globulin 3.6 g/dL (2.2-4.2); Protein, Total 7.9 g/dL (6.4-8.2)
--- NOTE | 2022-05-16 14:47 | CM.ED ---
Shari from [facility] called and requested the medical clearance from the ED for patient. SCOTT faxed it to [facility]. Anca DE LEÓN
== END 2022-05-16 14:13 ==
LOC: ED 11:52
PROVIDERS: Visit Provider Emergency Medicine
DX: F23 Brief psychotic disorder (principal); R45.851 Suicidal ideations; F17.210 Nicotine dependence, cigarettes, uncomplicated
CPT/HCPCS: 93005; 80048; 80076; 80307; 82077; 85025; 87811

== ENCOUNTER 2022-09-04 09:08 | Emergency (ER) | payer MEDICAID, SELFPAY ==
[2022-09-04 09:09] VITALS: BP 126/63; PULSE 82; RESP 14; TEMP 36.1; O2SAT 100; BMI 22.9
--- NOTE | 2022-09-04 09:26 | EKG12_ITS ---
Test Reason : CP Blood Pressure : / mmHG Vent. Rate : 090 BPM Atrial Rate : 090 BPM P-R Int : 132 ms QRS Dur : 092 ms QT Int : 358 ms P-R-T Axes : 046 -28 016 degrees QTc Int : 437 ms Normal sinus rhythm Anterolateral infarct , age undetermined Abnormal ECG Confirmed by DORITA CAGE, OSWALD ([id number]), non linear editor AALIYAH ERICKSON ([id number]) on 09/06/2022 8:30:12 AM Referred By: TRAVIS Confirmed By:OSWALD KEVIN MD
--- NOTE | 2022-09-04 09:40 | EDS_ITS ---
HPI History of Present Illness Chief Complaint: Chest Pain Informant: patient Onset/Context/Timing Onset: Month(s) (2 months) Narrative Narrative: Patient presents with a 2-month history of chest pain. He describes a constant pressure in the center of his chest with occasional sharp pain when he takes deep breath. This is sharp her pain is located over the lateral ribs. He reportedly has a history of blood clots and states he has an IVC filter. He states he was also supposed to have some cardiac testing done a couple months ago but missed that appointment. He thinks he was supposed to have a stress test. [facility] Medical History Above knee amputation of right lower extremity Hay fever NECK AND BACK PAIN Home Medications Escitalopram Oxalate 10 mg PO DAILY 09/17/19 [History Last Taken Unknown] lamotrigine 100 mg tablet 100 mg PO DAILY 09/17/19 [History Last Taken Unknown] cephalexin 500 mg capsule 500 mg PO BID 7 days #14 caps 12/17/20 [Rx Last Taken Unknown] ondansetron HCl 4 mg tablet (Zofran) 4 mg PO Q8H PRN nausea and vomiting #20 tabs 12/17/20 [Rx Last Taken Unknown] Allergy/AdvReac Type Severity Reaction Status Date / Time No Known Allergies Allergy Verified 09/04/22 09:09 Surgical History History of ankle surgery History of hip surgery Social History Smoking Status: Current every day smoker tobacco type: cigarettes alcohol intake: never ROS ROS ED Constitutional Constitutional ED: Denies chills or fever(s) Eyes Eyes: Denies change in vision or discharge from eye(s) ENT ENT ED: Denies discharge from eye(s), rhinorrhea or sore throat Cardiovascular Cardiovascular: Reports chest pain; Denies palpitations Respiratory/Chest Respiratory/Chest: Denies cough or dyspnea Gastrointestinal Gastrointestinal: Denies abdominal pain, diarrhea, nausea or vomiting Genitourinary Genitourinary ED: Denies dysuria or LMP (females 10-50) Musculoskeletal Musculoskeletal: Denies back pain or extremity pain Integumentary Denies Abrasions or rash Neurologic Neurologic: Denies headache(s) or weakness Allergic/Immunologic Allergic/Immunologic ED: Denies lip swelling or urticaria EXAM Physical Exam Const Vital Signs: 09/04/22 09:09 09/04/22 09:08 09/04/22 09:31 Temperature 97 F L Temperature Source Temporal Pulse Rate 82 Respiratory Rate 14 Respiratory Effort Normal Blood Pressure 126/63 H Blood Pressure Mean 84 Pulse Ox 100 Oxygen Delivery Method Room Air Room Air Positive well nourished and well developed General Appearance ED: well developed HEENT Reports normocephalic and head/scalp atraumatic Eyes PERRL and EOMs intact bilaterally Neck supple Chest Wall inspection of chest normal and palpation of chest normal Resp normal respiratory effort and clear to auscultation bilaterally Cardio regular rate and regular rhythm GI normal to inspection, nondistended, normoactive bowel sounds Palpation: soft Back/Spine no CVA tenderness Extremity Extremity Narrative: Right AKA Neuro oriented x3 and no sensory deficits noted Sensorium / Orientation: alert Psych mental status grossly normal Skin no rashes or lesions noted MDM MDM MDM Narrative Medical decision making narrative: EKG obtained to evaluate for cardiac arrhythmia/ischemia. Labwork obtained to evaluate for leukocytosis, anemia, and electrolyte derangement. Chest x-ray obtained to evaluate for acute lung pathology, cardiac size, or mediastinal abnormality. Lab Data Attestation: I reviewed the patient's lab results. Labs: Laboratory Results - last 24 hr 09/04/22 09/04/22 09/04/22 09:50 09:50 09:50 WBC Cancelled Corrected WBC Cancelled RBC Cancelled Hgb Cancelled Hct Cancelled MCV Cancelled MCH Cancelled MCHC Cancelled RDW Std Deviation Cancelled RDW Coeff of Samantha Cancelled Plt Count Cancelled MPV Cancelled Immature Gran % (Auto) Cancelled Neut % (Auto) Cancelled Lymph % (Auto) Cancelled [place] % (Auto) Cancelled Eos % (Auto) Cancelled Baso % (Auto) Cancelled Absolute Neuts (auto) Cancelled Absolute Lymphs (auto) Cancelled Total Counted Cancelled Neutrophils % (Manual) Cancelled Band Neutrophils % Cancelled Lymphocytes % (Manual) Cancelled Monocytes % (Manual) Cancelled Eosinophils % (Manual) Cancelled Basophils % (Manual) Cancelled Metamyelocytes % Cancelled Myelocytes % Cancelled Promyelocytes % Cancelled Blast Cells % Cancelled Plasma Cell % (Manual) Cancelled Other Cells % Cancelled Nucleated RBC % Cancelled Nucleated RBCs/100 WBC Cancelled Differential Comment Cancelled Diff Path Review Cancelled Hypersegmented Neuts Cancelled Atypical Lymphocytes Cancelled Reactive Lymphocytes Cancelled Smudge Cells Cancelled Toxic Granulation Cancelled Toxic Vacuolation Cancelled Dohle Bodies Cancelled Evangelist Rods Cancelled Platelet Estimate Cancelled Plt Morphology Comment Cancelled RBC Morphology Cancelled Polychromasia Cancelled Hypochromasia Cancelled Poikilocytosis Cancelled Basophilic Stippling Cancelled Anisocytosis Cancelled Microcytosis Cancelled Macrocytosis Cancelled Spherocytes Cancelled Sickle Cells Cancelled Target Cells Cancelled Tear Drop Cells Cancelled Ovalocytes Cancelled Stomatocytes Cancelled Alanis-Hornick Bodies Cancelled [place] Cells Cancelled Bite Cells Cancelled Crenated Cell Cancelled Acanthocytes (Spur) Cancelled Rouleaux Cancelled Schistocytes Cancelled D-Dimer Quant (PE/DVT) 0.30 Sodium 134 L Potassium 3.4 L Chloride 105 Carbon Dioxide 22.0 Anion Gap 7 BUN 18 Creatinine 0.96 Estim Creat Clear Calc 113.40 Est GFR (MDRD) Af Amer 117 Est GFR (MDRD) Non-Af 97 BUN/Creatinine Ratio 18.8 Glucose 104 Calcium 8.9 Troponin I High Sens 3 09/04/22 10:15 WBC 3.8 L Corrected WBC RBC 4.30 L Hgb 13.3 Hct 40.4 MCV 94.0 MCH 30.9 MCHC 32.9 RDW Std Deviation 49.2 H RDW Coeff of Samantha 14.4 Plt Count 161 MPV 11.4 Immature Gran % (Auto) 0.300 Neut % (Auto) 46.1 L Lymph % (Auto) 36.1 [place] % (Auto) 12.2 H Eos % (Auto) 4.8 Baso % (Auto) 0.5 Absolute Neuts (auto) 1.7 L Absolute Lymphs (auto) 1.36 Total Counted Neutrophils % (Manual) Band Neutrophils % Lymphocytes % (Manual) Monocytes % (Manual) Eosinophils % (Manual) Basophils % (Manual) Metamyelocytes % Myelocytes % Promyelocytes % Blast Cells % Plasma Cell % (Manual) Other Cells % Nucleated RBC % 0 Nucleated RBCs/100 WBC Differential Comment Diff Path Review Hypersegmented Neuts Atypical Lymphocytes Reactive Lymphocytes Smudge Cells Toxic Granulation Toxic Vacuolation Dohle Bodies Evangelist Rods Platelet Estimate Plt Morphology Comment RBC Morphology Polychromasia Hypochromasia Poikilocytosis Basophilic Stippling Anisocytosis Microcytosis Macrocytosis Spherocytes Sickle Cells Target Cells Tear Drop Cells Ovalocytes Stomatocytes Alanis-Hornick Bodies [place] Cells Bite Cells Crenated Cell Acanthocytes (Spur) Rouleaux Schistocytes D-Dimer Quant (PE/DVT) Sodium Potassium Chloride Carbon Dioxide Anion Gap BUN Creatinine Estim Creat Clear Calc Est GFR (MDRD) Af Amer Est GFR (MDRD) Non-Af BUN/Creatinine Ratio Glucose Calcium Troponin I High Sens Radiography Chest X-Ray - ED: 1 View, Read by ED Physician, Normal, Heart, Lungs and Mediastinum Diagnostic Testing: Clinical Impression(s) from Imaging Studies Chest X-Ray 09/04/22 09:51 IMPRESSION: Normal x-ray examination of the chest. 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 Hemoglobin is normal at 13.3. Chemistry studies reveal slightly low potassium at 3.4. Troponin is normal at 3. D-dimer is normal at 0.30. Chest x-ray per my interpretation reveals no acute abnormalities. Radiology interpretation is reviewed and agrees. On repeat evaluation patient is resting comfortably and has no compla ints. Test results are discussed with him. I will refer him to local primary care physician to establish care for any further testing. He is reassured with her work-up here. Return instructions given. Discharge Plan Triage Chief Complaint: Chest Pain ED Provider: Morley,Perla Dx/Rx/DC Orders Clinical Impression: Chest pain Instructions: ED Chest Pain, Uncertain Cause Prescriptions: No Action lamotrigine 100 MG tablet 100 mg PO DAILY Escitalopram Oxalate 10 MG tablet 10 mg PO DAILY cephalexin 500 mg capsule 500 mg PO BID 7 Days Qty: 14 0RF ondansetron HCl [Zofran] 4 mg tablet 4 mg PO Q8H PRN (Reason: nausea and vomiting) Qty: 20 0RF Primary Care Provider: ANA PAULA PHELAN Referrals: ANA PAULA PHELAN [Other] Jefe Ferguson MD [Med Staff - [facility]] - 1-2 Weeks Disposition Disposition: Home, Self Care
--- NOTE | 2022-09-04 09:51 | RAD_ITS ---
STUDY: X-RAY CHEST REASON FOR EXAM: Male, 32 years old. chest pain TECHNIQUE: Single AP portable view of the chest. COMPARISON: 09/17/2019 FINDINGS: The lungs are clear and expanded. There is no demonstrated pleural abnormality. Normal size heart. Normal mediastinum and radha. Normal visualized pulmonary arteries. Normal visualized aortic arch and descending thoracic aorta. Normal visualized thoracic spine. Normal visualized ribs, clavicles, and shoulders. There is no demonstrated abnormality of the visualized soft tissue structures of the upper abdomen. RAD/Chest 1 View (Portable) IMPRESSION: Normal x-ray examination of the chest. Electronically Signed: Cleveland Damon MD at 10:24 EDT ,
[2022-09-04] MEDS: Aspirin 81 MG TAB.CHEW 324 MG PO (10:15)
[2022-09-04 10:25] LABS: Absolute Lymphocyte Count 1.36 X10^3/uL (0.83-4.51); Absolute Neutrophil Count 1.7 X10^3/uL (2.0-7.7); Basophil# 0.02 X10^3/uL; Basophil% 0.5 % (0-1); Eosinophil# 0.18 X10^3/uL; Eosinophils% 4.8 % (0-5); Hematocrit 40.4 % (40-54); Hemoglobin 13.3 g/dL (13.0-16.5); Lymphocyte # 1.36 X10^3/ul (0.83-4.51); Lymphocyte % 36.1 % (19-41); Mean Corp Hgb Conc 32.9 g/dL (32-36); Mean Corpuscular Hgb 30.9 pg (27.0-32.0); Mean Platelet Vol. 11.4 fl (6.2-12.0); Monocyte# 0.46 X10^3/uL; Monocyte% 12.2 % (0-10); NRBC Flagged by Analyzer 0 % (0-5); Neutrophil # 1.74 X10^3/uL (2.7-7.7); Neutrophil % 46.1 % (47-70); Platelet Count 161 K/mm3 (150-450); RBC Distribution Width CV 14.4 % (11.6-14.6); RBC Distribution Width SD 49.2 fl (35.1-43.9); White Blood Count 3.8 K/mm3 (4.4-11.0)
[2022-09-04 10:40] LABS: Anion Gap 7 (5-15); BUN 18 mg/dL (7-18); BUN/Creat Ratio 18.8 RATIO (10-20); Calcium,Total 8.9 mg/dL (8.5-10.1); Chloride 105 mmol/L (98-107); Creatinine, Serum 0.96 mg/dL (0.70-1.30); EST Glomerular Filtration Rate 97 mL/min (>60); Est Glom Filt Rate - Afr Amer 117 mL/min (>60); Glucose 104 mg/dL (74-106); Potassium 3.4 mmol/L (3.5-5.1); Sodium Level 134 mmol/L (136-145); Troponin-I HS 3 pg/mL (3.0-78.0)
[2022-09-04 11:35] VITALS: PULSE 75; RESP 18; O2SAT 98
== END 2022-09-04 11:44 | disposition home or self-care (01) ==
PROVIDERS: Emergency Provider Emergency Medicine; Visit Provider Emergency Medicine
DX: R07.9 Chest pain, unspecified (principal); Z95.828 Presence of other vascular implants and grafts; Z86.718 Personal history of other venous thrombosis and embolism; F17.210 Nicotine dependence, cigarettes, uncomplicated
CPT/HCPCS: 71045; 80048; 84484; 85025; 85379; 93005; 99284; A4216

== ENCOUNTER → 2022-09-30 | Outpatient (CLI) | payer MEDICARE, MEDICAID, SELFPAY ==
[2022-09-30 16:16] LABS: Hematocrit 42.6 % (40-54); Hemoglobin 13.9 g/dL (13.0-16.5); Mean Corp Hgb Conc 32.6 g/dL (32-36); Mean Corpuscular Hgb 30.8 pg (27.0-32.0); Mean Corpuscular Volume 94.2 fL (80-94); Platelet Count 203 K/mm3 (150-450); RBC Distribution Width CV 13.4 % (11.6-14.6); RBC Distribution Width SD 46.5 fl (35.1-43.9); Red Blood Count 4.52 M/mm3 (4.6-6.2); White Blood Count 6.7 K/mm3 (4.4-11.0)
[2022-09-30 16:37] LABS: Hemoglobin A1c 5.6 % (3.8-5.6)
[2022-09-30 16:51] LABS: Vitamin B12 343 pg/mL (211-911); Vitamin D,25 Hydroxy 18.2 ng/mL
[2022-09-30 17:02] LABS: ALB/GLOB Ratio 1.2 RATIO (0.9-2.4); AST(SGOT) 20 U/L (15-37); Alanine Aminotransfer ALT/SGPT 32 U/L (16-61); Alkaline Phosphatase 65 U/L (45-117); Anion Gap 4 (5-15); BUN 13 mg/dL (7-18); BUN/Creat Ratio 11.6 RATIO (10-20); Calcium,Total 9.4 mg/dL (8.5-10.1); Chloride 104 mmol/L (98-107); Creatinine, Serum 1.12 mg/dL (0.70-1.30); EST Glomerular Filtration Rate 81 mL/min (>60); Est Glom Filt Rate - Afr Amer 98 mL/min (>60); Globulin 3.2 g/dL (2.2-4.2); Glucose 118 mg/dL (74-106); Potassium 3.6 mmol/L (3.5-5.1); Protein, Total 7.2 g/dL (6.4-8.2); Sodium Level 136 mmol/L (136-145); Thyroid Stim Hormone (TSH) 0.76 uIU/mL (0.358-3.74)
== END | disposition home or self-care (01) ==
PROVIDERS: Visit Provider Counselor Mental Health
DX: E55.9 Vitamin D deficiency, unspecified (principal); Z79.899 Other long term (current) drug therapy
CPT/HCPCS: 36415; 80053; 82306; 82607; 82746; 83036; 84443; 85027

== ENCOUNTER 2022-12-05 19:24 | Emergency (ER) | payer MEDICARE, MEDICAID, SELFPAY ==
[2022-12-05 19:25] VITALS: BP 151/93; PULSE 70; RESP 16; TEMP 36.7; O2SAT 98
--- NOTE | 2022-12-05 20:41 | ED.RN ---
Pt observed ambulating out of dept without being seen by provider or nurse.
== END 2022-12-05 20:35 | disposition left against medical advice (07) ==
LOC: ED 20:37
DX: K08.89 Other specified disorders of teeth and supporting structures (principal)

== ENCOUNTER 2025-04-22 20:02 | Emergency (ER) | payer MEDICARE, SELFPAY ==
[2025-04-22 20:04] VITALS: BP 153/89; PULSE 109; RESP 16; TEMP 36.8; O2SAT 99
--- NOTE | 2025-04-22 20:33 | EDS_ITS ---
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 Apparently police has been called out to his home multiple times in the last several days. He has not been inside for the last 2 days. Girlfriend stated that he stopped taking his psychiatric medications. He is a paranoid schizophrenic. To me he denies hearing or seeing things. He denied being suicidal. He denied being homicidal. Patient was pink slipped by the police. He really denies complaints other than he is had a cough for couple of days. Patient is evasive with me and really denies any other complaints. [facility] Medical History Above knee amputation of right lower extremity Hay fever NECK AND BACK PAIN Home Medications Medication Instructions Recorded Last Taken Type bupropion HCl 150 mg 24 hr tablet, 150 mg PO DAILY 05/06 Unknown History extended release psyllium husk 0.4 gram capsule 0.8 g PO BID 04/22/25 U nknown History solifenacin 10 mg tablet 10 mg PO DAILY 04/22/25 Unkn own History Allergy/AdvReac Type Severity Reaction Status Date / Time No Known Allergies Allergy Verified 04/22/25 20:08 Surgical History History of ankle surgery History of hip surgery Social History Smoking Status: Current every day smoker tobacco type: cigarettes and e- cigarettes alcohol intake: never ROS ROS ED Review of Systems ROS Unobtainable: other Constitutional Constitutional ED: Reports lethargy; Denies chills, fever(s), sweats or weight loss Eyes Eyes: Denies blurry vision, change in vision or diplopia ENT ENT ED: Denies rhinorrhea or sore throat Cardiovascular Cardiovascular: Denies chest pain, orthopnea or racing heartbeat Respiratory/Chest Respiratory/Chest: Reports cough; Denies dyspnea, dyspnea on exertion, orthopnea or sputum Gastrointestinal Gastrointestinal: Denies abdominal pain, diarrhea, nausea or vomiting Genitourinary Genitourinary ED: Denies dysuria, hematuria or urinary frequency Musculoskeletal Musculoskeletal: Denies arthralgias, back pain, myalgias or neck pain Integumentary Denies abscess, Abrasions or rash Neurologic Neurologic: Denies headache(s) or weakness Psychiatric Psychiatric: Reports other Details: History of paranoid schizophrenia and not taking medication ; Denies anxiety, depression or suicidal thoughts Endocrine Endocrinology: Denies polydipsia, polyphagia or polyuria Hematologic/Lymphatic Hematologic/Lymphatic: Denies easy bleeding, easy bruising or lymphadenopathy Allergic/Immunologic Allergic/Immunologic ED: Denies mouth swelling, tongue swelling or urticaria EXAM Physical Exam Const Vital Signs: 04/22/25 20:04 04/22/25 21:03 Temperature 98.2 F Temperature Source Oral Pulse Rate 109 H Respiratory Rate 16 16 Blood Pressure 153/89 H Blood Pressure Mean 110 Pulse Ox 99 98 Oxygen Delivery Method Room Air Room Air Positive well nourished and well developed General Appearance ED: well developed and NAD HEENT Reports TM's clear and moist mucous membranes normocephalic and atraumatic; Negative for trauma or tenderness Tympanic Membrane ED: Yes TM's clear Eyes PERRL and EOMs intact bilaterally General Eye ED: Negative for pale conjunctiva or scleral icterus Neck no lymphadenopathy, supple and no JVD General: Negative for tenderness Chest Wall inspection of chest normal and palpation of chest normal Chest: Negative for tenderness Resp normal respiratory effort and clear to auscultation bilaterally Effort and Inspection: Negative for respiratory distress or pain with movement Auscultation: Negative for rhonchi, wheezes or diminished lung sounds Cardio regular rate, regular rhythm, S1 normal heart sound, S2 normal heart sound and no murmurs Peripheral Pulses: pulses 2+ throughout GI normal to inspection, nondistended, normoactive bowel sounds, soft to palpation, non-tender, non-distended and no masses Back/Spine no CVA tenderness and no thoracic nor lumbar tenderness Extremity Extremity Narrative: Right above-knee amputation General Extremety ED: Negative for edema General Extremity: Negative for edema Neuro oriented x3, CN's II-XII intact bilaterally, no sensory deficits noted and gait normal Sensorium / Orientation: awake, alert, oriented to person, oriented to place and oriented to time Motor Exam: strength 5/5 throughout and strength abnormal Psych mental status grossly normal Skin no rashes or lesions noted and no wounds MDM MDM MDM Narrative Medical decision making narrative: Patient presents with concern for decompensated schizophrenia. Presents with police escort with pink slipped him. He is very evasive and not forthcoming with answers. CBC with differential obtained was normal. Chemistries unremarkable. Toxicology screen was negative. Alcohol was less than 10. Patient was seen by crisis who agreed that he would benefit from psychiatric hospitalization for stabilization of symptoms. Patient care turned over to evening physician awaiting transfer to psychiatric facility Lab Data Attestation: I reviewed the patient's lab results. Labs: Laboratory Results - last 24 hr 04/22/25 04/22/25 20:50 20:57 WBC 5.7 RBC 4.68 Hgb 13.8 Hct 41.5 MCV 88.7 MCH 29.5 MCHC 33.3 RDW Std Deviation 42.5 RDW Coeff of Samantha 13.2 Plt Count 271 MPV 10.8 Immature Gran % (Auto) 0.200 Neut % (Auto) 66.9 Lymph % (Auto) 20.3 Pierce % (Auto) 11.3 H Eos % (Auto) 0.9 Baso % (Auto) 0.4 Absolute Neuts (auto) 3.8 Absolute Lymphs (auto) 1.15 Nucleated RBC % 0 Sodium 137 Potassium 3.6 Chloride 100 Carbon Dioxide 19.3 L Anion Gap 17 H BUN 7 Creatinine 0.94 Estim Creat Clear Calc 114.33 Est GFR (MDRD) Non-Af 109 BUN/Creatinine Ratio 7.1 L Glucose 96 Calcium 10.0 Urine Opiates Screen NEGATIVE U Buprenorphine Qual NEGATIVE Ur Oxycodone Screen NEGATIVE Urine Methadone Screen NEGATIVE Urine Fentanyl Screen NEGATIVE Ur Barbiturates Screen NEGATIVE Ur Phencyclidine Scrn NEGATIVE Ur Amphetamines Screen NEGATIVE U Benzodiazepines Scrn NEGATIVE Urine Cocaine Screen NEGATIVE U Cannabinoids Screen NEGATIVE Ethyl Alcohol < 10.1 Discharge Plan Triage Chief Complaint: Mental Health ED Provider: Antonella Frank Dx/Rx/DC Orders Clinical Impression: Psychosis Prescriptions: No Action bupropion HCl 150 mg tablet extended release 24 hr 150 mg PO DAILY solifenacin 10 mg tablet 10 mg PO DAILY psyllium husk 0.4 gram capsule 0.8 g PO BID Primary Care Provider: Care Physician,No Primary Referrals: [facility] Doctor,Out of [Non-Staff, Medical] Print Language: Sinhala Disposition Disposition: Psychiatric Hospital or Unit
[2025-04-22 20:48] VITALS: BMI 24.6
--- OUTSIDE RECORDS SUMMARY | 2025-04-22 20:49 | XMS RPT_ITS | CCD ---
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 effective, or approved for treating a specific patient. [employer] and its affiliates disclaim any warranty or liability relating to this information or the use thereof. The use of this information is governed by the Terms of Use, available at https://www.[employer].com/en/know/ zbtmafma-gwpnmvndsbeix-hwjhc Copyright Copyright 2023 [employer] and its affiliates and/or licensors. All rights reserved. Falls Prevention Each year, 1 in every 3 adults over the age of 65 are treated for fall-related injuries. The risk of falling increases with each decade of life. The good news is, many falls are preventable. Here are some fall prevention tips: Exercise can increase strength and improve balance, making falls much less likely. For more informati on visit: http://[facility].org/services/t ggw-oytdve-ze-your-health/f-sthxtl-cy- balance/ Some medications or combinations of medications can lead to side effects that cause falls. Have a doctor or pharmacist review all medications to help reduce the chance of risky side effects. Poor vision can lead to falls. Have your eyes checked every year. Ensure that your glasses are the correct strength. Eliminate hazards in your home by completing this home safety checklist. Remove things you can trip over from stairs and places you walk Install handrails and lights on all staircases. Remove small throw rugs or use double-sided tape to keep rugs from slipping. Keep items you use often in cabinets you can reach easily without using a step stool. Put grab bars inside and next to the tub or shower and next to your toilet.Use non-slip mats in the bathtub and on shower floors. Improve the lighting in your home. Hang lightweight curtains or shades to reduce glare. Wear shoes both inside and outside the house. Avoid going barefoot or wearing slippers. To lower the risk of hip fractures: Get adequate calcium and vitamin D, from food and/or supplements. Do weight bearing exercise. Get screened for osteoporosis and treated if needed documented in this encounter [facility] 03-27-2024 Miscellaneous Notes Patient name: Nicole Montesinos Date: 03/27/24 HISTORY & PHYSICAL: Patient's history with special attention to the cardiovascular, pulmonary systems and the current problem was reviewed with the patient immediately prior to the procedure. Medications, allergies, and pertinent laboratory tests were also reviewed at this time. The physical examination,as below, was then performed. Patient assessed to be ASA Class II Mallampati Airway Assessment: Class II Faucial pillars, soft palate visible History of adverse reactions involving sedation/anesthesia. None reported. Family history of adverse reaction to sedation/anesthesia. None reported. PHYSICAL EXAMINATION BP 164/90 Pulse 72 Temp 98 F (36.7 C) (Oral) Resp 16 LMP Comment: Tubal ligation SpO2 97% Mouth and Pharynx: Clear oropharynx Cardiac: Normal pulse Pulmonary: Normal bilateral chest rise Neurological: normal without focal findings, mental status, speech normal, alert and oriented x iii Abdomen: Abdomen soft Written informed consent obtained from patient. Risks (including but not limited to perforation, infection, bloating and bleeding) benefits and alternatives explained and questions answered. Patient verbalized understanding. Librado Covarrubias MD 03/27/24 at 11:14 AM Nicole Montesinos 33 year old Surgical Contact Serial Number: [id number] Location: ENDO 03 Date: 03/27/2024 TELEGRAPH OFFICE TELEPHONE CLERK: Librado Covarrubias MD ATTENDING:Librado Covarrubias MD Procedure(s): ESOPHAGOGASTRODUODENOSCOPY SEDATION: Anesthesia Assisted Pre-Op Diagnosis Codes: * Hemoptysis [R04.2] * Hematemesis, unspecified whether nausea present [K92.0] INDICATIONS: This is a 33 year old male with: history of TBI, s/p AKA, type 2 anorectal dyssynergia here for colonoscopy for EGD for evaluation of hemetemesis. While monitoring the patient with EKG, pulse oximetry and BP, endoscope passed to second portion of duodenum by direct visualization. DUODENUM: bulb and descending portion appeared normal. STOMACH: pyloric channel, antrum, body, fundus and cardia, including retroflexed views appear normal. Biopsies taken with cold forceps and placed into Jar A. ESOPHAGUS: diaphragmatic hiatus was 36 cm from incisors and GE junction (upper margin of gastric folds) was at 36 cm from incisors. Squamocolumnar junction was at 36 cm from incisors. Irregular Z line. Mucosa appeared normal. Hematemesis, unspecified whether nausea present (Primary Diagnosis) [0700257] Hemoptysis [834207] Esophagitis [833750] MANUEL PATH SPECIMEN SENT: yes SPECIMEN: Stomach PHOTOGRAPH TAKEN:yes COMPLICATIONS DURING PROCEDURE: None EBL (estimated blood loss): minimal IMPRESSION: 1. Irregular zline 2. Normal stomach and duodenum RECOMMENDATIONS: 1. Follow up pathology 2. F/U with PCP. 3. Follow up in GI clinic CC: Primary Care Provider: Kena Monae MD PERSON COMPLETING NOTE: Librado Covarrubias MD 03/27/2024 at 12:20 PM Patient meets criteria for discharge/transfer: Librado Covarrubias MD documented in this encounter [facility] 03-27-2024 Surgery Surgical operation note Patient name: Nicole Montesinos Date: 03/27/24 HISTORY & PHYSICAL: Patient's history with special attention to the cardiovascular, pulmonary systems and the current problem was reviewed with the patient immediately prior to the procedure. Medications, allergies, and pertinent laboratory tests were also reviewed at this time. The physical examination,as below, was then performed. Patient assessed to be ASA Class II Mallampati Airway Assessment: Class II Faucial pillars, soft palate visible History of adverse reactions involving sedation/anesthesia. None reported. Family history of adverse reaction to sedation/anesthesia. None reported. PHYSICAL EXAMINATION BP 164/90 Pulse 72 Temp 98 F (36.7 C) (Oral) Resp 16 LMP Comment: Tubal ligation SpO2 97% Mouth and Pharynx: Clear oropharynx Cardiac: Normal pulse Pulmonary: Normal bilateral chest rise Neurological: normal without focal findings, mental status, speech normal, alert and oriented x iii Abdomen: Abdomen soft Written informed consent obtained from patient. Risks (including but not limited to perforation, infection, bloating and bleeding) benefits and alternatives explained and questions answered. Patient verbalized understanding. Librado Covarrubias MD 03/27/24 at 11:14 AM Nicole Montesinos 33 year old Surgical Contact Serial Number: [id number] Location: [facility] 03 Date: 03/27/2024 TELEGRAPH OFFICE TELEPHONE CLERK: Librado Covarrubias MD ATTENDING:Librado Covarrubias MD Procedure(s): ESOPHAGOGASTRODUODENOSCOPY SEDATION: Anesthesia Assisted Pre-Op Diagnosis Codes: * Hemoptysis [R04.2] * Hematemesis, unspecified whether nausea present [K92.0] INDICATIONS: This is a 33 year old male with: history of TBI, s/p AKA, type 2 anorectal dyssynergia here for colonoscopy for EGD for evaluation of hemetemesis. While monitoring the patient with EKG, pulse oximetry and BP, endoscope passed to second portion of duodenum by direct visualization. DUODENUM: bulb and descending portion appeared normal. STOMACH: pyloric channel, antrum, body, fundus and cardia, including retroflexed views appear normal. Biopsies taken with cold forceps and placed into Jar A. ESOPHAGUS: diaphragmatic hiatus was 36 cm from incisors and GE junction (upper margin of gastric folds) was at 36 cm from incisors. Squamocolumnar junction was at 36 cm from incisors. Irregular Z line. Mucosa appeared normal. Hematemesis, unspecified whether nausea present (Primary Diagnosis) [[id number]] Hemoptysis [745694] Esophagitis [005119] MANUEL PATH SPECIMEN SENT: yes SPECIMEN: Stomach PHOTOGRAPH TAKEN:yes COMPLICATIONS DURING PROCEDURE: None EBL (estimated blood loss): minimal IMPRESSION: 1. Irregular zline 2. Normal stomach and duodenum RECOMMENDATIONS: 1. Follow up pathology 2. F/U with PCP. 3. Follow up in GI clinic CC: Primary Care Provider: Kena Monae MD PERSON COMPLETING NOTE: Librado Covarrubias MD 03/27/2024 at 12:20 PM Patient meets criteria for discharge/transfer: Librado Covarrubias MD [facility] 03-21-2024 Telephone encounter Note Outreach Team ([phone]) Contact Details: Inbound call Care Gaps Scheduling Medicare AWV / PCP Visit: AWV scheduled Eye Exam: Not due Mammogram: N/A [facility] 03-21-2024 Miscellaneous Notes Outreach Team ([phone]) Contact Details: Inbound call Care Gaps Scheduling Medicare AWV / PCP Visit: AWV scheduled Eye Exam: Not due Mammogram: N/A documented in this encounter [facility] 03-21-2024 Telephone encounter Note Outreach Team ([phone]) Contact Details: Inbound call Care Gaps Scheduling Medicare AWV / PCP Visit: AWV scheduled Eye Exam: Not due Mammogram: N/A [facility] 03-21-2024 Miscellaneous Notes Outreach Team ([phone]) Contact Details: Inbound call Care Gaps Scheduling Medicare AWV / PCP Visit: AWV scheduled Eye Exam: Not due Mammogram: N/A documented in this encounter [facility] 03-21-2024 Telephone encounter Note Outreach Team ([phone]) Contact Details: Outbound call. Left message. Care Gaps Scheduling Medicare AWV / PCP Visit: AWV due Eye Exam: Not due Mammogram: N/A [facility] 03-21-2024 Miscellaneous Notes Outreach Team ([phone]) Contact Details: Outbound call. Left message. Care Gaps Scheduling Medicare AWV / PCP Visit: AWV due Eye Exam: Not due Mammogram: N/A documented in this encounter [facility] 03-14-2024 History of Present illness Narrative Images from the original note were not included. New Patient General information: Nicole Montesinos is a 33 year old, Black / , male here today alone. He is ambulatory w/o assistive devices. Referring Provider: Deonte Khan DO [address] [place] [address] The following information was obtained from the patient and review of chart. CC/HPI: Patient is a 33 year old, Black / , male here today with complaint of he can't hold urine to get to the bathroom in time, seen in outside express care given antibiotics for 1st prostate infection and then for urinary tract infection, antibiotics helped a little but as soon as he was done with the course, urgency was back, drink water 32oz or less, milk, Diet Coke 44oz, Juices, No Known Allergies Past Medical, Surgical, Family and Social history reviewed. The following history is pertinent to the current problem TBI, Right AKA. Review of Systems: General: no fever, chills, weight loss or fatigue Genitourinary: See HPI All other systems reviewed and are negative Physical Exam: There were no vitals taken for this visit. General appearance: Wnl nutrition, no deformities, healthy appearing Respiratory: NL effort, no retractions or purse-lip breathing Neuro: Alert and oriented x3 Psych: normal affect Labs Reviewed: Urinalysis: 01/16/2024 6:07 PM 03/14/2024 2:06 PM Color Colorless Yellow Appearance Clear Cloudy pH 6.5 8.5 (H) Spec Burton 1.008 1.025 Protein Negative 100 ! Blood Negative Negative Bilirubin Negative Negative Urobilinogen Negative 0.2 Ketones Negative Negative Leuk. Esterase Negative Negative Nitrite Negative Negative Glucose Negative Negative RBC 0-2 Squamous Epitheleal 0-2 Amorphous Phos Many No results found for: "PSA" BMP (last 3 years, up to 8 values) 01/16/2024 08/25/2023 8:34 PM 11:42 AM Na 138 138 K 4.2 3.9 Cl 103 104 CO2 29 25 Gap 10 13 Glu 84 123 BUN 10 9 Cr 1.21 0.78 Ca 9.5 9.2 eGFR 81 121 CBC (last 3 years, up to 8 values) 02/15/2024 01/16/2024 9:55 AM 6:09 PM WBC 3.9 4.7 RBC 4.61 4.45 Hgb 13.7 13.4 Hct 42.3 42.2 MCV 92 95 RDW 13.0 14.1 Plt 191 196 Urine Culture (last 1 year) No lab values to display. Radiology Reviewed: None PROCEDURE NOTE: Patient placed in supine position, bladder capacity measured by ultrasound scanner by nursing staff and results given and reviewed by me to help narrow down the differential diagnosis. Patient has a PVR of 0 ML Impression/Plan/Education: 33 year old, Black / , male with urge incontinence, negative today for urinary tract infection or retention, will start on oxybutynin, send for next available renal Ultrasound and PSA, discussed dietary irritants, and some changes to work on, Return to Clinic in 8 weeks for UA/postvoid residual, ELIZABETH Devi Pt was identified by name and birthdate.Measurement,post-voiding residual urine and/or bladder capacity, US, non-imaging was performed. Results are given to doctor. # 0 ml documented in this encounter [facility] 03-13-2024 Instructions Hali Gutierrez RN - 03/13/2024 3:57 PM EDT You are to have an Endoscopy Procedure on 03/27/2024 at [facility], which is located at [address] [place] [address]. [facility] PARKING INSTRUCTIONS Please plan extra time for parking and shuttle service. We recommend arriving at least 15 minutes prior to the time your care team advises you need to be here. Parking is available in the [employer] [facility]age accessible from [facility]. 02/01 shuttle service from the garage to the [facility] is available. Go to the ground floor of the parking garage to reach the shuttle pick-up station located just outside the elevator and stairs. Shuttle service will drop you off at the [facility] entrance. Aeronautical Project Engineer service is available at the [facility] entrance if you prefer meat apprentice over parking. [facility] [employer]eron[employer] Project [employer] Services Hours: Monday-Monday 5:30 am to 8:00 pm Enter the [facility] entrance and go to the Admitting/Registration desk to check in for your procedure. PATIENT MEDICATION INSTRUCTIONS: On the morning of your surgery, please take only the following medications, with a small sip of water: escitalopram (LEXAPRO) 10 MG tablet Do not take any Aspirin 7 days before the surgery. Do not take any Ibuprofen products/NSAIDs 3 days before surgery. May take over the counter Acetaminophen (Tylenol) as needed for pain. Do not take any herbal medications 7 days prior to surgery (Fish Oil, Ginseng, Ginko Biloba) DAY OF SURGERY NOTES: UPPER ENDOSCOPY or EGD WHAT IS AN UPPER ENDOSCOPY? Upper endoscopy is a way to look a the inside of the esophagus(food-pipe), the stomach and the duodenum (the first part of the small intestine). A thin, bending tube with a light is used. The doctor looks through this tube. WHAT PREPARATION IS REQUIRED? YOUR STOMACH MUST BE EMPTY. Before the test you should have nothing to eat or drink after midnight. If your procedure is in the afternoon you may drink a small amount ( 6oz) of a clear liquid up to 4 hours before the test. CONTACT YOUR PRIMARY CARE PHYSICIAN FOR THE FOLLOWING: - Regarding any changes or what medication should be taken on the test day. - IF you are taking any BLOOD THINNER MEDICATIONS such as Coumadin, Heparin, Ticlid or Plavix, these may or may not be stopped before your test. - DIABETIC patients ask your doctor about diabetic medications for day before and day of the test. Please check your blood sugar before arriving for the test. WHAT SHOULD YOU EXPECT DURING THE TEST? Your throat may be numbed with a spray. Your doctor will give you a medication through a vein to make you feel relaxed. You may hear sounds around you; this is normal. It is important that you lay still and not talk during the test. You will lie on your left side for the test. The tube will be put into your mouth and then the doctor will ask you to swallow. This is not hard to do because the tube is small. You will have no trouble with breathing. A nurse will be present to assist you before, during, and after the test. WHAT HAPPENS AFTER THE ENDOSCOPY? After the test is done you will be moved to the recovery area of the Endoscopy unit. You will rest for one hour or until the effects of the medication have worn off. Your throat may feel sore for a couple of hours. You may feel a fullness in your stomach because of the air used during the test. If you are having an IV sedated procedure, plan that your stay will be 2 1/2- 3 hours. YOU MUST HAVE A RESPONSIBLE ADULT ACCOMPANY YOU HOME FROM THE ENDOSCOPY UNIT BECAUSE OF THE MEDICATION GIVEN. IF YOU HAVE AN AFTERNOON APPOINTMENT, WE EXPECT YOUR RESPONSIBLE ADULT TO REMAIN IN THE WAITING ROOM DURING YOUR PROCEDURE. YOUR PROCEDURE WILL BE RESCHEDULED IF YOU DO NOT HAVE A RESPONSIBLE ADULT A responsible adult should remain with you for the next 24 hours. If using [employer], cab or bus you must still have a responsible adult with you and remain with you for the next 24 hours. Location: [facility] located at [address] [place] [address]. - Plan to arrive at least 60 minutes before your scheduled procedure. Please also plan extra time for parking and shuttle service. - Bring your photo ID, insurance card, and medication insurance card. - Parking is available in the [employer] [facility] Garage accessible from [facility]. - 02/01 shuttle service from the garage to The [facility] is available. - Go to the ground floor of the parking garage to reach the shuttle pick-up station located near the elevator and stairs. - Shuttle service will drop you off at The [facility] Main Entrance. - Aeronautical Project Engineer service is available at The [facility] Main Entrance if you would prefer meat apprentice over parking ([facility] [employer]autical Project Engineer Service Hours: Monday-Monday, 5:30am-8:00pm). - Enter The [facility] Main Entrance and go to the Admitting/Registration Desk to check in for your procedure. - The Endoscopy department is located on the 1st floor of The [facility]. Please call [phone] Monday-Monday, 7:00am-6:00pm if you have any pre-procedural questions. If you are calling AFTER HOURS, please call [phone] to speak to the [facility] Nurse contract administration coordinator. If you need to cancel this appointment prior to the scheduled date, please call the Endoscopy call center at [phone] at least 48 hours before the appointment/procedure time. documented in this encounter [facility] 03-13-2024 Instructions Hali Gutierrez RN - 03/13/2024 3:57 PM EDT You are to have an Endoscopy Procedure on 03/27/2024 at [facility], which is located at [address] [address]. [facility] PARKING INSTRUCTIONS Please plan extra time for parking and shuttle service. We recommend arriving at least 15 minutes prior to the time your care team advises you need to be here. Parking is available in the [employer] [facility]age accessible from [facility]. 02/01 shuttle service from the garage to the [facility] is available. Go to the ground floor of the parking garage to reach the shuttle pick-up station located just outside the elevator and stairs. Shuttle service will drop you off at the [facility] entrance. Aeronautical Project Engineer service is available at the [facility] entrance if you prefer meat apprentice over parking. [facility] Aeronautical Project Engineer Services Hours: Monday-Monday 5:30 am to 8:00 pm Enter the [facility] entrance and go to the Admitting/Registration desk to check in for your procedure. PATIENT MEDICATION INSTRUCTIONS: On the morning of your surgery, please take only the following medications, with a small sip of water: escitalopram (LEXAPRO) 10 MG tablet Do not take any Aspirin 7 days before the surgery. Do not take any Ibuprofen products/NSAIDs 3 days before surgery. May take over the counter Acetaminophen (Tylenol) as needed for pain. Do not take any herbal medications 7 days prior to surgery (Fish Oil, Ginseng, Ginko Biloba) DAY OF SURGERY NOTES: UPPER ENDOSCOPY or EGD WHAT IS AN UPPER ENDOSCOPY? Upper endoscopy is a way to look a the inside of the esophagus(food-pipe), the stomach and the duodenum (the first part of the small intestine). A thin, bending tube with a light is used. The doctor looks through this tube. WHAT PREPARATION IS REQUIRED? YOUR STOMACH MUST BE EMPTY. Before the test you should have nothing to eat or drink after midnight. If your procedure is in the afternoon you may drink a small amount ( 6oz) of a clear liquid up to 4 hours before the test. CONTACT YOUR PRIMARY CARE PHYSICIAN FOR THE FOLLOWING: - Regarding any changes or what medication should be taken on the test day. - IF you are taking any BLOOD THINNER MEDICATIONS such as Coumadin, Heparin, Ticlid or Plavix, these may or may not be stopped before your test. - DIABETIC patients ask your doctor about diabetic medications for day before and day of the test. Please check your blood sugar before arriving for the test. WHAT SHOULD YOU EXPECT DURING THE TEST? Your throat may be numbed with a spray. Your doctor will give you a medication through a vein to make you feel relaxed. You may hear sounds around you; this is normal. It is important that you lay still and not talk during the test. You will lie on your left side for the test. The tube will be put into your mouth and then the doctor will ask you to swallow. This is not hard to do because the tube is small. You will have no trouble with breathing. A nurse will be present to assist you before, during, and after the test. WHAT HAPPENS AFTER THE ENDOSCOPY? After the test is done you will be moved to the recovery area of the Endoscopy unit. You will rest for one hour or until the effects of the medication have worn off. Your throat may feel sore for a couple of hours. You may feel a fullness in your stomach because of the air used during the test. If you are having an IV sedated procedure, plan that your stay will be 2 1/2- 3 hours. YOU MUST HAVE A RESPONSIBLE ADULT ACCOMPANY YOU HOME FROM THE ENDOSCOPY UNIT BECAUSE OF THE MEDICATION GIVEN. IF YOU HAVE AN AFTERNOON APPOINTMENT, WE EXPECT YOUR RESPONSIBLE ADULT TO REMAIN IN THE WAITING ROOM DURING YOUR PROCEDURE. YOUR PROCEDURE WILL BE RESCHEDULED IF YOU DO NOT HAVE A RESPONSIBLE ADULT A responsible adult should remain with you for the next 24 hours. If using [employer], cab or bus you must still have a responsible adult with you and remain with you for the next 24 hours. Location: [facility] located at [address] [place] [address]. - Plan to arrive at least 60 minutes before your scheduled procedure. Please also plan extra time for parking and shuttle service. - Bring your photo ID, insurance card, and medication insurance card. - Parking is available in the [employer] [facility] Parking Garage accessible from [facility] [address]. - 02/01 shuttle service from the garage to The [facility] is available. - Go to the ground floor of the parking garage to reach the shuttle pick-up station located near the elevator and stairs. - Shuttle service will drop you off at The [facility] Main Entrance. - Aeronautical Project Engineer service is available at The [facility] Main Entrance if you would prefer meat apprentice over parking ([facility] Aeronautical Project Engineer Service Hours: Monday-Monday, 5:30am-8:00pm). - Enter The [facility] Main Entrance and go to the Admitting/Registration Desk to check in for your procedure. - The Endoscopy department is located on the 1st floor of The [facility]. Please call [phone] Monday-Monday, 7:00am-6:00pm if you have any pre-procedural questions. If you are calling AFTER HOURS, please call [phone] to speak to the [facility] Nurse contract administration coordinator. If you need to cancel this appointment prior to the scheduled date, please call the Endoscopy call center at [phone] at least 48 hours before the appointment/procedure time. documented in this encounter [facility] 03-13-2024 Evaluation note Images from the original note were not included. Telephone History Nicole Montesinos, [id number] 03/13/2024 Patient was identified by name and date of . Needs: Physical, Neck Circumference, and Consider EKG on DOS. If the patient becomes ill prior to procedure or surgery, they are to call their provider or surgeon's office directly. 03/19/2024- Dr. Manrique indicates ok to proceed with procedure 33 year old 190 lbs 5' 10" Date of Surgery: 03/27/2024 Surgeon: Marci Type of Surgery: ESOPHAGOGASTRODUODENOSCOPY HISTORY OF PRESENT ILLNESS: telephone history prior to surgery or procedure with anesthesia ED Visit (01/16/2024) Partial Note- Nicole Montesinos is a 33 year old male brought to the ED from urgent clinic with two concerns: occ hematemesis: last one 1 week ago, happened twice before, each time amnt of a small alfred dish, BRB, preceded by nausea, no cough, denies BRBPR, melena, abd pain, LH/LOC. Secondly urinary urgency that at times results in incontinence over past 6 months, slowly worsening course, pt was started on atb by urgent care 2 days ago. Denies penile discharge, f/c Counseling: Spoke with the patient and discussed today s findings, in addition to providing specific details for the plan of care and expected course. They were given the opportunity to ask questions. Discussed return precautions and importance of follow-up. Advised to follow-up with GI and urology, referrals made. Advised to return to the ED for changing or worsening symptoms, new symptoms, complaint specific precautions, and precautions listed on the discharge paperwork. STOP-BANG Row Name 03/13/24 1531 History of sleep apnea? No Snoring No Tired/Fatigued Yes Observed Apnea No Pressure: Hypertension No BMI greater than 35 0 Age greater than 50 0 Neck circ greater than 40cm (15.75") Unable to Assess Gender male? 1 Score 2 EXERCISE CAPACITY: 4-10 mets and prosthetic leg ALLERGIES: Patient has no known allergies. PREVIOUS ANESTHETIC EXPERIENCES AND INTUBATION HISTORY: No previous anesthetic complication FAMILY HISTORY OF ANESTHETIC COMPLICATIONS: No PAST MEDICAL HISTORY: Past Medical History: Diagnosis Date AIVR (accelerated idioventricular rhythm) ([facility]) 12/02/2022 BRBPR (bright red blood per rectum) 07/28/2023 Chronic constipation 07/28/2023 Displaced articular fracture of head of right femur, initial encounter for closed fracture ([facility]) Displaced fracture of right femoral neck ([facility]) History of right above knee amputation ([facility]) TBI (traumatic brain injury) ([facility]) 03/26/2020 Traumatic brain injury ([facility]) PROBLEM LIST: Patient Active Problem List: Closed fracture of right femur [S72.91XA] Displaced articular fracture of head of right femur, initial encounter for closed fracture ([facility]) [S72.061A] Displaced fracture of right femoral neck ([facility]) [S72.001A] Closed displaced fracture of posterior wall of right acetabulum ([facility]) [S32.421A] Dislocation of hip, posterior, right, closed [S73.014A] S/P AKA (above knee amputation), right ([facility]) [Z89.611] Dislocation of tarsometatarsal joint of foot, left, initial encounter [S93.325A] Closed fracture of right distal radius [S52.501A] TBI (traumatic brain injury) ([facility]) [S06.9XAA] Post-traumatic osteoarthritis of right hip [M16.51] AIVR (accelerated idioventricular rhythm) ([facility]) [I44.2] BRBPR (bright red blood per rectum) [K62.5] Chronic constipation [K59.09] S/P above knee amputation, right ([facility]) [Z89.611] Past Medical History and Review of Systems Pulmonary (+) a smoker (vape) Comment: Denies SOB, wheezes, fever, chills, increased sputum, or general malaise. 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 S/p AKA Right (prosthetic) Cardiovascular Comment: AVIR Denies: CP, SOB, palpitations, dizziness, or syncope. GI/Hepatic/Renal Comment: Rectal bleeding, urine incontinence, constipation Heme/Other - negative ROS Other ROS: Glasses PAST SURGICAL HISTORY: Past Surgical History: Procedure Laterality Date ARTHROPLASTY, HIP, MARITO Right 03/19/2020 Procedure: ARTHROPLASTY, HIP, MARITO orif right acetabulem; Surgeon: Jarett Phelan DO; Location: PERIOPERATIVE SERVICES; Service: Orthopaedics ARTHROPLASTY, TOTAL HIP, REVISION Right 02/03/2021 Procedure: ARTHROPLASTY, TOTAL HIP, REVISION, CONVERSION FROM MARITO TO TOTAL HIP, REMOVAL PLATE; Surgeon: Jarett Phelan DO; Location: PERIOPERATIVE SERVICES; Service: Orthopaedics COLONOSCOPY N/A 08/03/2023 Procedure: COLONOSCOPY, WITH ANESTHESIA SERVICES; Surgeon: Librado Covarrubias MD; Location: [facility]; Service: Gastroenterology FIXATION, EXTERNAL, WRIST Right 03/18/2020 Procedure: FIXATION, EXTERNAL, RIGHT RADIUS; Surgeon: Issa Hallman MD; Location: PERIOPERATIVE SERVICES; Service: Hand REDUCTION, CLOSED, PERCUTANEOUS PINNING Bilateral 03/18/2020 Procedure: REDUCTION, CLOSED, PERCUTANEOUS PINNING, LEFT FOOT, POSSIBLE AKA WOUND WASHOUT TO RIGHT AKA; Surgeon: Maribel Maldonado MD; Location: PERIOPERATIVE SERVICES; Service: Orthopaedics REDUCTION, OPEN, FOOT Left 03/24/2020 Procedure: REDUCTION, OPEN, FOOT Inpatient 7b; Surgeon: Jarett Phelan DO; Location: PERIOPERATIVE SERVICES; Service: Orthopaedics REDUCTION, OPEN, WRIST Right 03/24/2020 Procedure: REDUCTION, OPEN, WRIST, REMOVAL OF EX FIX; Surgeon: Frank Brown MD; Location: PERIOPERATIVE SERVICES; Service: Hand REMOVAL, HARDWARE, PLATES OR SCREWS OR PINS Right 07/10/2020 Procedure: REMOVAL, HARDWARE, UPPER EXTREMITY; Surgeon: Frank Brown MD; Location: [facility]; Service: Hand SOCIAL HISTORY: Social History Socioeconomic History Marital status: Single Highest education level: Associate degree: occupational, technical, or vocational program Tobacco Use Smoking status: Every Day Types: Cigarettes Smokeless tobacco: Never Tobacco comments: Marijuana, vapes Vaping Use Vaping status: Every Day Substances: Nicotine, THC, 3 mg Substance and Sexual Activity Alcohol use: Not Currently Drug use: Yes Comment: e-cigarette: THC Social Determinants of Health Financial Resource Strain: Medium Risk (03/16/2023) Overall Financial Resource Strain (CARDIA) Difficulty of Paying Living Expenses: Somewhat hard Food Insecurity: No Food Insecurity (01/16/2024) Hunger Vital Sign Worried About Running Out of Food in the Last Year: Never true Ran Out of Food in the Last Year: Never true Transportation Needs: No Transportation Needs (01/16/2024) PRAPARE - Transportation Lack of Transportation (Medical): No Lack of Transportation (Non-Medical): No Physical Activity: Inactive (03/16/2023) Exercise Vital Sign Days of Exercise per Week: 0 days Minutes of Exercise per Session: 0 min Stress: Stress Concern Present (03/16/2023) [employer] [place] [employer] - Occupational Stress Questionnaire Feeling of Stress : To some extent Social Connections: Socially Isolated (03/16/2023) Social Connection and Isolation Panel [NHANES] Frequency of Communication with Friends and Family: Three times a week Frequency of Social Gatherings with Friends and Family: Once a week Attends [employer] Services: Never Active Member of Clubs or Organizations: No Attends Club or Organization Meetings: Never Marital Status: Never Intimate Partner Violence: Not At Risk (03/16/2023) Humiliation, Afraid, Rape, and Kick questionnaire Fear of Current or Ex-Partner: No Emotionally Abused: No Physically Abused: No Sexually Abused: No PAIN ASSESSMENT: Severity: 0 Location: N/A LABORATORY DATA: Type & Screen (Last result in the past 30 days) No lab values to display. CBC (last 3 years, up to 8 values) 02/15/2024 01/16/2024 9:55 AM 6:09 PM WBC 3.9 4.7 RBC 4.61 4.45 Hgb 13.7 13.4 Hct 42.3 42.2 MCV 92 95 RDW 13.0 14.1 Plt 191 196 BMP (last 3 years, up to 8 values) 01/16/2024 08/25/2023 8:34 PM 11:42 AM Na 138 138 K 4.2 3.9 Cl 103 104 CO2 29 25 Gap 10 13 Glu 84 123 BUN 10 9 Cr 1.21 0.78 Ca 9.5 9.2 eGFR 81 121 Basic Metabolic Panel No lab values to display. PT/PTT/INR (last 3 years, up to 8 values) 01/16/2024 8:34 PM aPTT 29 INR 1.00 Arterial Blood Gases None No result for BNP LFT's (last 3 years, up to 8 values) 01/16/2024 8:34 PM T Prot 5.8 Albumin 4.0 D Bili 0.07 T Bili 0.4 Alk Phos 33 ALT 55 AST 35 Urinalysis No lab values to display. Lab Results Component Value Date HBA1C 5.9 (H) 08/25/2023 No results found for: "TSH" LDL cholesterol (mg/dL) Date Value 08/25/2023 129 (H) TESTS REVIEWED: CXRay: Chest x-ray was last done on 10/09/2023 IMPRESSION: No radiographic evidence of acute cardiopulmonary abnormality. EKG: Last ECG Date: 11/06/2022 - HR 56 Sinus bradycardia Cannot rule out Anterior infarct , age undetermined Abnormal ECG When compared with ECG of 26-SEP-2022 10:55, No significant change was found Confirmed by DIANE CORRAL ([id number]) on 11/06/2022 8:28:31 AM ECHO: None Found Stress test date: Last StressTest: 11/04/2022 Summary No ECG evidence of ischemia. For the nuclear imaging results please see the Radiology report. CURRENT MEDICATION LIST: Current Outpatient Medications Medication Sig Dispense Refill GENERIC SUPPLY Prosthetic Liners and [facility] [address] [place] [address] [address], [place] [address] 28 de Fax:[phone] 1 Each 11 sodium phosphate-dibasic sodium phosphate (FLEETS) enema may repeat dose if necessary 2 Enema 0 Cholecalciferol (Vitamin D3) 125 MCG (5000 UT) CAPS Take 1 Capsule by mouth daily. 30 Capsule 3 sulfamethoxazole-trimethoprim 800-160 MG (BACTRIM DS) 800-160 MG per tablet risperiDONE (RISPERDAL) 2 MG tablet at bedtime. risperiDONE (RISPERDAL) 3 MG tablet TAKE 1 TABLET BY MOUTH EVERY DAY AT NIGHT benztropine (COGENTIN) 2 MG tablet TAKE 1 TABLET BY MOUTH EVERY DAY (Patient not taking: Reported on 03/13/2024) 60 Tablet 0 metoprolol (TOPROL-XL) 50 mg XL tablet Take 1 Tablet by mouth daily for 2 doses. (Patient not taking: Reported on 03/13/2024) 2 Tablet 0 atorvastatin (Lipitor) 20 mg tablet (Patient not taking: Reported on 03/13/2024) divalproex ER (DEPAKOTE ER) 500 MG ER tablet TAKE 1 TABLET BY MOUTH EVERY DAY AT NIGHT (Patient not taking: Reported on 03/13/2024) escitalopram (LEXAPRO) 10 MG tablet oxcarbazepine (TRILEPTAL) 300 MG tablet Take 300 mg by mouth 2 times daily. (Patient not taking: Reported on 03/13/2024) metFORMIN HCl 500 MG/5ML SOLN (Patient not taking: Reported on 10/05/2023) aspirin EC 81 MG tablet TAKE ONE (1) TABLET BY MOUTH TWO (2) TIMES A DAY (Patient not taking: Reported on 10/05/2023) 60 Tablet 0 disability placard expires 05/03/2026 1 Each 0 Current Facility-Administered Medications Medication Dose Route Frequency Last Rate Last Admin nitroglycerin (NITROSTAT) 0.4 MG sublingual tablet 0.4 mg Sublingual Once PRN CURRENT MEDICATIONS: Aspirin: No NSAIDS: No Other Antiplatelet Medication: No Anticoagulants: No Steroids: No PATIENT MEDICATION INSTRUCTIONS: On the morning of your surgery, please take only the following medications, with a small sip of water: escitalopram (LEXAPRO) 10 MG tablet Do not take any Aspirin 7 days before the surgery. Do not take any Ibuprofen products/NSAIDs 3 days before surgery. May take over the counter Acetaminophen (Tylenol) as needed for pain. Do not take any herbal medications 7 days prior to surgery (Fish Oil, Ginseng, Ginko Biloba) DAY OF SURGERY NOTES: UPPER ENDOSCOPY or EGD WHAT IS AN UPPER ENDOSCOPY? Upper endoscopy is a way to look a the inside of the esophagus(food-pipe), the stomach and the duodenum (the first part of the small intestine). A thin, bending tube with a light is used. The doctor looks through this tube. WHAT PREPARATION IS REQUIRED? YOUR STOMACH MUST BE EMPTY. Before the test you should have nothing to eat or drink after midnight. If your procedure is in the afternoon you may drink a small amount ( 6oz) of a clear liquid up to 4 hours before the test. CONTACT YOUR PRIMARY CARE PHYSICIAN FOR THE FOLLOWING: - Regarding any changes or what medication should be taken on the test day. - IF you are taking any BLOOD THINNER MEDICATIONS such as Coumadin, Heparin, Ticlid or Plavix, these may or may not be stopped before your test. - DIABETIC patients ask your doctor about diabetic medications for day before and day of the test. Please check your blood sugar before arriving for the test. WHAT SHOULD YOU EXPECT DURING THE TEST? Your throat may be numbed with a spray. Your doctor will give you a medication through a vein to make you feel relaxed. You may hear sounds around you; this is normal. It is important that you lay still and not talk during the test. You will lie on your left side for the test. The tube will be put into your mouth and then the doctor will ask you to swallow. This is not hard to do because the tube is small. You will have no trouble with breathing. A nurse will be present to assist you before, during, and after the test. WHAT HAPPENS AFTER THE ENDOSCOPY? After the test is done you will be moved to the recovery area of the Endoscopy unit. You will rest for one hour or until the effects of the medication have worn off. Your throat may feel sore for a couple of hours. You may feel a fullness in your stomach because of the air used during the test. If you are having an IV sedated procedure, plan that your stay will be 2 1/2- 3 hours. YOU MUST HAVE A RESPONSIBLE ADULT ACCOMPANY YOU HOME FROM THE ENDOSCOPY UNIT BECAUSE OF THE MEDICATION GIVEN. IF YOU HAVE AN AFTERNOON APPOINTMENT, WE EXPECT YOUR RESPONSIBLE ADULT TO REMAIN IN THE WAITING ROOM DURING YOUR PROCEDURE. YOUR PROCEDURE WILL BE RESCHEDULED IF YOU DO NOT HAVE A RESPONSIBLE ADULT A responsible adult should remain with you for the next 24 hours. If using [employer], cab or bus you must still have a responsible adult with you and remain with you for the next 24 hours. Location: [facility] located at [address] [place] [address]. - Plan to arrive at least 60 minutes before your scheduled procedure. Please also plan extra time for parking and shuttle service. - Bring your photo ID, insurance card, and medication insurance card. - Parking is available in the [facility] accessible from [address]. - 02/01 shuttle service from the garage to [facility] is available. - Go to the ground floor of the parking garage to reach the shuttle pick-up station located near the elevator and stairs. - Shuttle service will drop you off at [facility] Main Entrance. - Aeronautical Project Engineer service is available at [facility] Main Entr[facility] if you would prefer meat apprentice over parking ([facility] Aeronautical Project Engineer Service Hours: Monday-Monday, 5:30am-8:00pm). - Enter [facility] Main Entr[facility] and go to the Admitting/Registration Desk to check in for your procedure. - The Endoscopy department is located on the 1st floor of [facility]. Please call [phone] Monday-Monday, 7:00am-6:00pm if you have any pre-procedural questions. If you are calling AFTER HOURS, please call [phone] to speak to the [facility] Nurse contract administration coordinator. If you need to cancel this appointment prior to the scheduled date, please call the Endoscopy call center at [phone] at least 48 hours before the appointment/procedure time. Hali Gutierrez RN Time Spent Performing this Telephone History: 25 [facility] 03-13-2024 Miscellaneous Notes Images from the original note were not included. Telephone History Nicole Montesinos, [id number] 03/13/2024 Patient was identified by name and date of . Needs: Physical, Neck Circumference, and Consider EKG on DOS. If the patient becomes ill prior to procedure or surgery, they are to call their provider or surgeon's office directly. 03/13/2024-Messaged Cardiology - Dr. Manrique in regards to cardiac status 33 year old 190 lbs 5' 10" Date of Surgery: 03/27/2024 Surgeon: Marci Type of Surgery: ESOPHAGOGASTRODUODENOSCOPY HISTORY OF PRESENT ILLNESS: telephone history prior to surgery or procedure with anesthesia ED Visit (01/16/2024) Partial Note- Nicole Montesinos is a 33 year old male brought to the ED from urgent clinic with two concerns: occ hematemesis: last one 1 week ago, happened twice before, each time amnt of a small alfred dish, BRB, preceded by nausea, no cough, denies BRBPR, melena, abd pain, LH/LOC. Secondly urinary urgency that at times results in incontinence over past 6 months, slowly worsening course, pt was started on atb by urgent care 2 days ago. Denies penile discharge, f/c Counseling: Spoke with the patient and discussed today s findings, in addition to providing specific details for the plan of care and expected course. They were given the opportunity to ask questions. Discussed return precautions and importance of follow-up. Advised to follow-up with GI and urology, referrals made. Advised to return to the ED for changing or worsening symptoms, new symptoms, complaint specific precautions, and precautions listed on the discharge paperwork. STOP-BANG Row Name 03/13/24 1531 History of sleep apnea? No Snoring No Tired/Fatigued Yes Observed Apnea No Pressure: Hypertension No BMI greater than 35 0 Age greater than 50 0 Neck circ greater than 40cm (15.75") Unable to Assess Gender male? 1 Score 2 EXERCISE CAPACITY: 4-10 mets and prosthetic leg ALLERGIES: Patient has no known allergies. PREVIOUS ANESTHETIC EXPERIENCES AND INTUBATION HISTORY: No previous anesthetic complication FAMILY HISTORY OF ANESTHETIC COMPLICATIONS: No PAST MEDICAL HISTORY: Past Medical History: Diagnosis Date AIVR (accelerated idioventricular rhythm) ([facility]) 12/02/2022 BRBPR (bright red blood per rectum) 07/28/2023 Chronic constipation 07/28/2023 Displaced articular fracture of head of right femur, initial encounter for closed fracture ([facility]) Displaced fracture of right femoral neck ([facility]) History of right above knee amputation ([facility]) TBI (traumatic brain injury) ([facility]) 03/26/2020 Traumatic brain injury ([facility]) PROBLEM LIST: Patient Active Problem List: Closed fracture of right femur [S72.91XA] Displaced articular fracture of head of right femur, initial encounter for closed fracture ([facility]) [S72.061A] Displaced fracture of right femoral neck ([facility]) [S72.001A] Closed displaced fracture of posterior wall of right acetabulum ([facility]) [S32.421A] Dislocation of hip, posterior, right, closed [S73.014A] S/P AKA (above knee amputation), right ([facility]) [Z89.611] Dislocation of tarsometatarsal joint of foot, left, initial encounter [S93.325A] Closed fracture of right distal radius [S52.501A] TBI (traumatic brain injury) ([facility]) [S06.9XAA] Post-traumatic osteoarthritis of right hip [M16.51] AIVR (accelerated idioventricular rhythm) ([facility]) [I44.2] BRBPR (bright red blood per rectum) [K62.5] Chronic constipation [K59.09] S/P above knee amputation, right ([facility]) [Z89.611] Past Medical History and Review of Systems Pulmonary (+) a smoker (vape) Comment: Denies SOB, wheezes, fever, chills, increased sputum, or general malaise. 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 S/p AKA Right (prosthetic) Cardiovascular Comment: AVIR, IVC Filter? Denies: CP, SOB, palpitations, dizziness, or syncope. GI/Hepatic/Renal Comment: Rectal bleeding, urine incontinence, constipation Heme/Other - negative ROS Other ROS: Glasses PAST SURGICAL HISTORY: Past Surgical History: Procedure Laterality Date ARTHROPLASTY, HIP, MARITO Right 03/19/2020 Procedure: ARTHROPLASTY, HIP, MARITO orif right acetabulem; Surgeon: Jarett Phelan DO; Location: PERIOPERATIVE SERVICES; Service: Orthopaedics ARTHROPLASTY, TOTAL HIP, REVISION Right 02/03/2021 Procedure: ARTHROPLASTY, TOTAL HIP, REVISION, CONVERSION FROM MARITO TO TOTAL HIP, REMOVAL PLATE; Surgeon: Jarett Phelan DO; Location: PERIOPERATIVE SERVICES; Service: Orthopaedics COLONOSCOPY N/A 08/03/2023 Procedure: COLONOSCOPY, WITH ANESTHESIA SERVICES; Surgeon: Librado Covarrubias MD; Location: [facility]; Service: Gastroenterology FIXATION, EXTERNAL, WRIST Right 03/18/2020 Procedure: FIXATION, EXTERNAL, RIGHT RADIUS; Surgeon: Issa Hallman MD; Location: PERIOPERATIVE SERVICES; Service: Hand REDUCTION, CLOSED, PERCUTANEOUS PINNING Bilateral 03/18/2020 Procedure: REDUCTION, CLOSED, PERCUTANEOUS PINNING, LEFT FOOT, POSSIBLE AKA WOUND WASHOUT TO RIGHT AKA; Surgeon: Maribel Maldonado MD; Location: PERIOPERATIVE SERVICES; Service: Orthopaedics REDUCTION, OPEN, FOOT Left 03/24/2020 Procedure: REDUCTION, OPEN, FOOT Inpatient 7b; Surgeon: Jarett Phelan DO; Location: PERIOPERATIVE SERVICES; Service: Orthopaedics REDUCTION, OPEN, WRIST Right 03/24/2020 Procedure: REDUCTION, OPEN, WRIST, REMOVAL OF EX FIX; Surgeon: Frank Brown MD; Location: PERIOPERATIVE SERVICES; Service: Hand REMOVAL, HARDWARE, PLATES OR SCREWS OR PINS Right 07/10/2020 Procedure: REMOVAL, HARDWARE, UPPER EXTREMITY; Surgeon: Frank Brown MD; Location: [facility]; Service: Hand SOCIAL HISTORY: Social History Socioeconomic History Marital status: Single Highest education level: Associate degree: occupational, technical, or vocational program Tobacco Use Smoking status: Every Day Types: Cigarettes Smokeless tobacco: Never Tobacco comments: Marijuana, vapes Vaping Use Vaping status: Every Day Substances: Nicotine, THC, 3 mg Substance and Sexual Activity Alcohol use: Not Currently Drug use: Yes Comment: e-cigarette: THC Social Determinants of Health Financial Resource Strain: Medium Risk (03/16/2023) Overall Financial Resource Strain (CARDIA) Difficulty of Paying Living Expenses: Somewhat hard Food Insecurity: No Food Insecurity (01/16/2024) Hunger Vital Sign Worried About Running Out of Food in the Last Year: Never true Ran Out of Food in the Last Year: Never true Transportation Needs: No Transportation Needs (01/16/2024) PRAPARE - Transportation Lack of Transportation (Medical): No Lack of Transportation (Non-Medical): No Physical Activity: Inactive (03/16/2023) Exercise Vital Sign Days of Exercise per Week: 0 days Minutes of Exercise per Session: 0 min Stress: Stress Concern Present (03/16/2023) [employer] [place] [employer] - Occupational Stress Questionnaire Feeling of Stress : To some extent Social Connections: Socially Isolated (03/16/2023) Social Connection and Isolation Panel [NHANES] Frequency of Communication with Friends and Family: Three times a week Frequency of Social Gatherings with Friends and Family: Once a week Attends [employer] Services: Never Active Member of Clubs or Organizations: No Attends Club or Organization Meetings: Never Marital Status: Never Intimate Partner Violence: Not At Risk (03/16/2023) Humiliation, Afraid, Rape, and Kick questionnaire Fear of Current or Ex-Partner: No Emotionally Abused: No Physically Abused: No Sexually Abused: No PAIN ASSESSMENT: Severity: 0 Location: N/A LABORATORY DATA: Type & Screen (Last result in the past 30 days) No lab values to display. CBC (last 3 years, up to 8 values) 02/15/2024 01/16/2024 9:55 AM 6:09 PM WBC 3.9 4.7 RBC 4.61 4.45 Hgb 13.7 13.4 Hct 42.3 42.2 MCV 92 95 RDW 13.0 14.1 Plt 191 196 BMP (last 3 years, up to 8 values) 01/16/2024 08/25/2023 8:34 PM 11:42 AM Na 138 138 K 4.2 3.9 Cl 103 104 CO2 29 25 Gap 10 13 Glu 84 123 BUN 10 9 Cr 1.21 0.78 Ca 9.5 9.2 eGFR 81 121 Basic Metabolic Panel No lab values to display. PT/PTT/INR (last 3 years, up to 8 values) 01/16/2024 8:34 PM aPTT 29 INR 1.00 Arterial Blood Gases None No result for BNP LFT's (last 3 years, up to 8 values) 01/16/2024 8:34 PM T Prot 5.8 Albumin 4.0 D Bili 0.07 T Bili 0.4 Alk Phos 33 ALT 55 AST 35 Urinalysis No lab values to display. Lab Results Component Value Date HBA1C 5.9 (H) 08/25/2023 No results found for: "TSH" LDL cholesterol (mg/dL) Date Value 08/25/2023 129 (H) TESTS REVIEWED: CXRay: Chest x-ray was last done on 10/09/2023 IMPRESSION: No radiographic evidence of acute cardiopulmonary abnormality. EKG: Last ECG Date: 11/06/2022 - HR 56 Sinus bradycardia Cannot rule out Anterior infarct , age undetermined Abnormal ECG When compared with ECG of 26-SEP-2022 10:55, No significant change was found Confirmed by DIANE CORRAL ([id number]) on 11/06/2022 8:28:31 AM ECHO: None Found Stress test date: Last StressTest: 11/04/2022 Summary No ECG evidence of ischemia. For the nuclear imaging results please see the Radiology report. CURRENT MEDICATION LIST: Current Outpatient Medications Medication Sig Dispense Refill GENERIC SUPPLY Prosthetic Liners and New Socket [facility] 1 [facility] [address], [place] [address] 28 de Fax:[phone] 1 Each 11 sodium phosphate-dibasic sodium phosphate (FLEETS) enema may repeat dose if necessary 2 Enema 0 Cholecalciferol (Vitamin D3) 125 MCG (5000 UT) CAPS Take 1 Capsule by mouth daily. 30 Capsule 3 sulfamethoxazole-trimethoprim 800-160 MG (BACTRIM DS) 800-160 MG per tablet risperiDONE (RISPERDAL) 2 MG tablet at bedtime. risperiDONE (RISPERDAL) 3 MG tablet TAKE 1 TABLET BY MOUTH EVERY DAY AT NIGHT benztropine (COGENTIN) 2 MG tablet TAKE 1 TABLET BY MOUTH EVERY DAY (Patient not taking: Reported on 03/13/2024) 60 Tablet 0 metoprolol (TOPROL-XL) 50 mg XL tablet Take 1 Tablet by mouth daily for 2 doses. (Patient not taking: Reported on 03/13/2024) 2 Tablet 0 atorvastatin (Lipitor) 20 mg tablet (Patient not taking: Reported on 03/13/2024) divalproex ER (DEPAKOTE ER) 500 MG ER tablet TAKE 1 TABLET BY MOUTH EVERY DAY AT NIGHT (Patient not taking: Reported on 03/13/2024) escitalopram (LEXAPRO) 10 MG tablet oxcarbazepine (TRILEPTAL) 300 MG tablet Take 300 mg by mouth 2 times daily. (Patient not taking: Reported on 03/13/2024) metFORMIN HCl 500 MG/5ML SOLN (Patient not taking: Reported on 10/05/2023) aspirin EC 81 MG tablet TAKE ONE (1) TABLET BY MOUTH TWO (2) TIMES A DAY (Patient not taking: Reported on 10/05/2023) 60 Tablet 0 courtney cantu expires 05/03/2026 1 Each 0 Current Facility-Administered Medications Medication Dose Route Frequency Last Rate Last Admin nitroglycerin (NITROSTAT) 0.4 MG sublingual tablet 0.4 mg Sublingual Once PRN CURRENT MEDICATIONS: Aspirin: No NSAIDS: No Other Antiplatelet Medication: No Anticoagulants: No Steroids: No PATIENT MEDICATION INSTRUCTIONS: On the morning of your surgery, please take only the following medications, with a small sip of water: escitalopram (LEXAPRO) 10 MG tablet Do not take any Aspirin 7 days before the surgery. Do not take any Ibuprofen products/NSAIDs 3 days before surgery. May take over the counter Acetaminophen (Tylenol) as needed for pain. Do not take any herbal medications 7 days prior to surgery (Fish Oil, Ginseng, Ginko Biloba) DAY OF SURGERY NOTES: UPPER ENDOSCOPY or EGD WHAT IS AN UPPER ENDOSCOPY? Upper endoscopy is a way to look a the inside of the esophagus(food-pipe), the stomach and the duodenum (the first part of the small intestine). A thin, bending tube with a light is used. The doctor looks through this tube. WHAT PREPARATION IS REQUIRED? YOUR STOMACH MUST BE EMPTY. Before the test you should have nothing to eat or drink after midnight. If your procedure is in the afternoon you may drink a small amount ( 6oz) of a clear liquid up to 4 hours before the test. CONTACT YOUR PRIMARY CARE PHYSICIAN FOR THE FOLLOWING: - Regarding any changes or what medication should be taken on the test day. - IF you are taking any BLOOD THINNER MEDICATIONS such as Coumadin, Heparin, Ticlid or Plavix, these may or may not be stopped before your test. - DIABETIC patients ask your doctor about diabetic medications for day before and day of the test. Please check your blood sugar before arriving for the test. WHAT SHOULD YOU EXPECT DURING THE TEST? Your throat may be numbed with a spray. Your doctor will give you a medication through a vein to make you feel relaxed. You may hear sounds around you; this is normal. It is important that you lay still and not talk during the test. You will lie on your left side for the test. The tube will be put into your mouth and then the doctor will ask you to swallow. This is not hard to do because the tube is small. You will have no trouble with breathing. A nurse will be present to assist you before, during, and after the test. WHAT HAPPENS AFTER THE ENDOSCOPY? After the test is done you will be moved to the recovery area of the Endoscopy unit. You will rest for one hour or until the effects of the medication have worn off. Your throat may feel sore for a couple of hours. You may feel a fullness in your stomach because of the air used during the test. If you are having an IV sedated procedure, plan that your stay will be 2 1/2- 3 hours. YOU MUST HAVE A RESPONSIBLE ADULT ACCOMPANY YOU HOME FROM THE ENDOSCOPY UNIT BECAUSE OF THE MEDICATION GIVEN. IF YOU HAVE AN AFTERNOON APPOINTMENT, WE EXPECT YOUR RESPONSIBLE ADULT TO REMAIN IN THE WAITING ROOM DURING YOUR PROCEDURE. YOUR PROCEDURE WILL BE RESCHEDULED IF YOU DO NOT HAVE A RESPONSIBLE ADULT A responsible adult should remain with you for the next 24 hours. If using [employer], cab or bus you must still have a responsible adult with you and remain with you for the next 24 hours. Location: [facility] located at [address] [place] [address]. - Plan to arrive at least 60 minutes before your scheduled procedure. Please also plan extra time for parking and shuttle service. - Bring your photo ID, insurance card, and medication insurance card. - Parking is available in the [employer] [facility] Parking Garage accessible from [facility]. - 02/01 shuttle service from the garage to [facility] is available. - Go to the ground floor of the parking garage to reach the shuttle pick-up station located near the elevator and stairs. - Shuttle service will drop you off at [facility] Main Entrance. - Aeronautical Project Engineer service is available at [facility] Main Entr[facility] if you would prefer meat apprentice over parking ([facility] Aeronautical Project Engineer Service Hours: Monday-Monday, 5:30am-8:00pm). - Enter [facility] En[facility] and go to the Admitting/Registration Desk to check in for your procedure. - The Endoscopy department is located on the 1st floor of [facility]. Please call [phone] Monday-Monday, 7:00am-6:00pm if you have any pre-procedural questions. If you are calling AFTER HOURS, please call [phone] to speak to the [facility] Nurse contract administration coordinator. If you need to cancel this appointment prior to the scheduled date, please call the Endoscopy call center at [phone] at least 48 hours before the appointment/procedure time. Hali Gutierrez RN Time Spent Performing this Telephone History: 25 documented in this encounter [facility] 03-13-2024 Miscellaneous Notes Images from the original note were not included. Telephone History Nicole Montesinos, [id number] 03/13/2024 Patient was identified by name and date of . Needs: Physical, Neck Circumference, and Consider EKG on DOS. If the patient becomes ill prior to procedure or surgery, they are to call their provider or surgeon's office directly. 03/19/2024- Dr. Manrique indicates ok to proceed with procedure 33 year old 190 lbs 5' 10" Date of Surgery: 03/27/2024 Surgeon: Marci Type of Surgery: ESOPHAGOGASTRODUODENOSCOPY HISTORY OF PRESENT ILLNESS: telephone history prior to surgery or procedure with anesthesia ED Visit (01/16/2024) Partial Note- Nicole Montesinos is a 33 year old male brought to the ED from urgent clinic with two concerns: occ hematemesis: last one 1 week ago, happened twice before, each time amnt of a small alfred dish, BRB, preceded by nausea, no cough, denies BRBPR, melena, abd pain, LH/LOC. Secondly urinary urgency that at times results in incontinence over past 6 months, slowly worsening course, pt was started on atb by urgent care 2 days ago. Denies penile discharge, f/c Counseling: Spoke with the patient and discussed today s findings, in addition to providing specific details for the plan of care and expected course. They were given the opportunity to ask questions. Discussed return precautions and importance of follow-up. Advised to follow-up with GI and urology, referrals made. Advised to return to the ED for changing or worsening symptoms, new symptoms, complaint specific precautions, and precautions listed on the discharge paperwork. STOP-BANG Row Name 03/13/24 9025 History of sleep apnea? No Snoring No Tired/Fatigued Yes Observed Apnea No Pressure: Hypertension No BMI greater than 35 0 Age greater than 50 0 Neck circ greater than 40cm (15.75") Unable to Assess Gender male? 1 Score 2 EXERCISE CAPACITY: 4-10 mets and prosthetic leg ALLERGIES: Patient has no known allergies. PREVIOUS ANESTHETIC EXPERIENCES AND INTUBATION HISTORY: No previous anesthetic complication FAMILY HISTORY OF ANESTHETIC COMPLICATIONS: No PAST MEDICAL HISTORY: Past Medical History: Diagnosis Date AIVR (accelerated idioventricular rhythm) ([facility]) 12/02/2022 BRBPR (bright red blood per rectum) 07/28/2023 Chronic constipation 07/28/2023 Displaced articular fracture of head of right femur, initial encounter for closed fracture ([facility]) Displaced fracture of right femoral neck ([facility]) History of right above knee amputation ([facility]) TBI (traumatic brain injury) ([facility]) 03/26/2020 Traumatic brain injury ([facility]) PROBLEM LIST: Patient Active Problem List: Closed fracture of right femur [S72.91XA] Displaced articular fracture of head of right femur, initial encounter for closed fracture ([facility]) [S72.061A] Displaced fracture of right femoral neck ([facility]) [S72.001A] Closed displaced fracture of posterior wall of right acetabulum ([facility]) [S32.421A] Dislocation of hip, posterior, right, closed [S73.014A] S/P AKA (above knee amputation), right ([facility]) [Z89.611] Dislocation of tarsometatarsal joint of foot, left, initial encounter [S93.325A] Closed fracture of right distal radius [S52.501A] TBI (traumatic brain injury) ([facility]) [S06.9XAA] Post-traumatic osteoarthritis of right hip [M16.51] AIVR (accelerated idioventricular rhythm) ([facility]) [I44.2] BRBPR (bright red blood per rectum) [K62.5] Chronic constipation [K59.09] S/P above knee amputation, right ([facility]) [Z89.611] Past Medical History and Review of Systems Pulmonary (+) a smoker (vape) Comment: Denies SOB, wheezes, fever, chills, increased sputum, or general malaise. 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 S/p AKA Right (prosthetic) Cardiovascular Comment: AVIR Denies: CP, SOB, palpitations, dizziness, or syncope. GI/Hepatic/Renal Comment: Rectal bleeding, urine incontinence, constipation Heme/Other - negative ROS Other ROS: Glasses PAST SURGICAL HISTORY: Past Surgical History: Procedure Laterality Date ARTHROPLASTY, HIP, MARITO Right 03/19/2020 Procedure: ARTHROPLASTY, HIP, MARITO orif right acetabulem; Surgeon: Jarett Phelan DO; Location: PERIOPERATIVE SERVICES; Service: Orthopaedics ARTHROPLASTY, TOTAL HIP, REVISION Right 02/03/2021 Procedure: ARTHROPLASTY, TOTAL HIP, REVISION, CONVERSION FROM MARITO TO TOTAL HIP, REMOVAL PLATE; Surgeon: Jarett Phelan DO; Location: PERIOPERATIVE SERVICES; Service: Orthopaedics COLONOSCOPY N/A 08/03/2023 Procedure: COLONOSCOPY, WITH ANESTHESIA SERVICES; Surgeon: Librado Covarrubias MD; Location: [facility]; Service: Gastroenterology FIXATION, EXTERNAL, WRIST Right 03/18/2020 Procedure: FIXATION, EXTERNAL, RIGHT RADIUS; Surgeon: Issa Hallman MD; Location: PERIOPERATIVE SERVICES; Service: Hand REDUCTION, CLOSED, PERCUTANEOUS PINNING Bilateral 03/18/2020 Procedure: REDUCTION, CLOSED, PERCUTANEOUS PINNING, LEFT FOOT, POSSIBLE AKA WOUND WASHOUT TO RIGHT AKA; Surgeon: Maribel Maldonado MD; Location: PERIOPERATIVE SERVICES; Service: Orthopaedics REDUCTION, OPEN, FOOT Left 03/24/2020 Procedure: REDUCTION, OPEN, FOOT Inpatient 7b; Surgeon: Jarett Phelan DO; Location: PERIOPERATIVE SERVICES; Service: Orthopaedics REDUCTION, OPEN, WRIST Right 03/24/2020 Procedure: REDUCTION, OPEN, WRIST, REMOVAL OF EX FIX; Surgeon: Frank Brown MD; Location: PERIOPERATIVE SERVICES; Service: Hand REMOVAL, HARDWARE, PLATES OR SCREWS OR PINS Right 07/10/2020 Procedure: REMOVAL, HARDWARE, UPPER EXTREMITY; Surgeon: Frank Brown MD; Location: [facility] Surgery [place]; Service: Hand SOCIAL HISTORY: Social History Socioeconomic History Marital status: Single Highest education level: Associate degree: occupational, technical, or vocational program Tobacco Use Smoking status: Every Day Types: Cigarettes Smokeless tobacco: Never Tobacco comments: Marijuana, vapes Vaping Use Vaping status: Every Day Substances: Nicotine, THC, 3 mg Substance and Sexual Activity Alcohol use: Not Currently Drug use: Yes Comment: e-cigarette: THC Social Determinants of Health Financial Resource Strain: Medium Risk (03/16/2023) Overall Financial Resource Strain (CARDIA) Difficulty of Paying Living Expenses: Somewhat hard Food Insecurity: No Food Insecurity (01/16/2024) Hunger Vital Sign Worried About Running Out of Food in the Last Year: Never true Ran Out of Food in the Last Year: Never true Transportation Needs: No Transportation Needs (01/16/2024) PRAPARE - Transportation Lack of Transportation (Medical): No Lack of Transportation (Non-Medical): No Physical Activity: Inactive (03/16/2023) Exercise Vital Sign Days of Exercise per Week: 0 days Minutes of Exercise per Session: 0 min Stress: Stress Concern Present (03/16/2023) [employer] [place] [employer] - Occupational Stress Questionnaire Feeling of Stress : To some extent Social Connections: Socially Isolated (03/16/2023) Social Connection and Isolation Panel [NHANES] Frequency of Communication with Friends and Family: Three times a week Frequency of Social Gatherings with Friends and Family: Once a week Attends [employer] Services: Never Active Member of Clubs or Organizations: No Attends Club or Organization Meetings: Never Marital Status: Never Intimate Partner Violence: Not At Risk (03/16/2023) Humiliation, Afraid, Rape, and Kick questionnaire Fear of Current or Ex-Partner: No Emotionally Abused: No Physically Abused: No Sexually Abused: No PAIN ASSESSMENT: Severity: 0 Location: N/A LABORATORY DATA: Type & Screen (Last result in the past 30 days) No lab values to display. CBC (last 3 years, up to 8 values) 02/15/2024 01/16/2024 9:55 AM 6:09 PM WBC 3.9 4.7 RBC 4.61 4.45 Hgb 13.7 13.4 Hct 42.3 42.2 MCV 92 95 RDW 13.0 14.1 Plt 191 196 BMP (last 3 years, up to 8 values) 01/16/2024 08/25/2023 8:34 PM 11:42 AM Na 138 138 K 4.2 3.9 Cl 103 104 CO2 29 25 Gap 10 13 Glu 84 123 BUN 10 9 Cr 1.21 0.78 Ca 9.5 9.2 eGFR 81 121 Basic Metabolic Panel No lab values to display. PT/PTT/INR (last 3 years, up to 8 values) 01/16/2024 8:34 PM aPTT 29 INR 1.00 Arterial Blood Gases None No result for BNP LFT's (last 3 years, up to 8 values) 01/16/2024 8:34 PM T Prot 5.8 Albumin 4.0 D Bili 0.07 T Bili 0.4 Alk Phos 33 ALT 55 AST 35 Urinalysis No lab values to display. Lab Results Component Value Date HBA1C 5.9 (H) 08/25/2023 No results found for: "TSH" LDL cholesterol (mg/dL) Date Value 08/25/2023 129 (H) TESTS REVIEWED: CXRay: Chest x-ray was last done on 10/09/2023 IMPRESSION: No radiographic evidence of acute cardiopulmonary abnormality. EKG: Last ECG Date: 11/06/2022 - HR 56 Sinus bradycardia Cannot rule out Anterior infarct , age undetermined Abnormal ECG When compared with ECG of 26-SEP-2022 10:55, No significant change was found Confirmed by DIANE CORRAL ([id number]) on 11/06/2022 8:28:31 AM ECHO: None Found Stress test date: Last StressTest: 11/04/2022 Summary No ECG evidence of ischemia. For the nuclear imaging results please see the Radiology report. CURRENT MEDICATION LIST: Current Outpatient Medications Medication Sig Dispense Refill GENERIC SUPPLY Prosthetic Liners and New S[facility] [address] [place] [phone] 28 de Fax:[phone] 1 Each 11 sodium phosphate-dibasic sodium phosphate (FLEETS) enema may repeat dose if necessary 2 Enema 0 Cholecalciferol (Vitamin D3) 125 MCG (5000 UT) CAPS Take 1 Capsule by mouth daily. 30 Capsule 3 sulfamethoxazole-trimethoprim 800-160 MG (BACTRIM DS) 800-160 MG per tablet risperiDONE (RISPERDAL) 2 MG tablet at bedtime. risperiDONE (RISPERDAL) 3 MG tablet TAKE 1 TABLET BY MOUTH EVERY DAY AT NIGHT benztropine (COGENTIN) 2 MG tablet TAKE 1 TABLET BY MOUTH EVERY DAY (Patient not taking: Reported on 03/13/2024) 60 Tablet 0 metoprolol (TOPROL-XL) 50 mg XL tablet Take 1 Tablet by mouth daily for 2 doses. (Patient not taking: Reported on 03/13/2024) 2 Tablet 0 atorvastatin (Lipitor) 20 mg tablet (Patient not taking: Reported on 03/13/2024) divalproex ER (DEPAKOTE ER) 500 MG ER tablet TAKE 1 TABLET BY MOUTH EVERY DAY AT NIGHT (Patient not taking: Reported on 03/13/2024) escitalopram (LEXAPRO) 10 MG tablet oxcarbazepine (TRILEPTAL) 300 MG tablet Take 300 mg by mouth 2 times daily. (Patient not taking: Reported on 03/13/2024) metFORMIN HCl 500 MG/5ML SOLN (Patient not taking: Reported on 10/05/2023) aspirin EC 81 MG tablet TAKE ONE (1) TABLET BY MOUTH TWO (2) TIMES A DAY (Patient not taking: Reported on 10/05/2023) 60 Tablet 0 disability placard expires 05/03/2026 1 Each 0 Current Facility-Administered Medications Medication Dose Route Frequency Last Rate Last Admin nitroglycerin (NITROSTAT) 0.4 MG sublingual tablet 0.4 mg Sublingual Once PRN CURRENT MEDICATIONS: Aspirin: No NSAIDS: No Other Antiplatelet Medication: No Anticoagulants: No Steroids: No PATIENT MEDICATION INSTRUCTIONS: On the morning of your surgery, please take only the following medications, with a small sip of water: escitalopram (LEXAPRO) 10 MG tablet Do not take any Aspirin 7 days before the surgery. Do not take any Ibuprofen products/NSAIDs 3 days before surgery. May take over the counter Acetaminophen (Tylenol) as needed for pain. Do not take any herbal medications 7 days prior to surgery (Fish Oil, Ginseng, Ginko Biloba) DAY OF SURGERY NOTES: UPPER ENDOSCOPY or EGD WHAT IS AN UPPER ENDOSCOPY? Upper endoscopy is a way to look a the inside of the esophagus(food-pipe), the stomach and the duodenum (the first part of the small intestine). A thin, bending tube with a light is used. The doctor looks through this tube. WHAT PREPARATION IS REQUIRED? YOUR STOMACH MUST BE EMPTY. Before the test you should have nothing to eat or drink after midnight. If your procedure is in the afternoon you may drink a small amount ( 6oz) of a clear liquid up to 4 hours before the test. CONTACT YOUR PRIMARY CARE PHYSICIAN FOR THE FOLLOWING: - Regarding any changes or what medication should be taken on the test day. - IF you are taking any BLOOD THINNER MEDICATIONS such as Coumadin, Heparin, Ticlid or Plavix, these may or may not be stopped before your test. - DIABETIC patients ask your doctor about diabetic medications for day before and day of the test. Please check your blood sugar before arriving for the test. WHAT SHOULD YOU EXPECT DURING THE TEST? Your throat may be numbed with a spray. Your doctor will give you a medication through a vein to make you feel relaxed. You may hear sounds around you; this is normal. It is important that you lay still and not talk during the test. You will lie on your left side for the test. The tube will be put into your mouth and then the doctor will ask you to swallow. This is not hard to do because the tube is small. You will have no trouble with breathing. A nurse will be present to assist you before, during, and after the test. WHAT HAPPENS AFTER THE ENDOSCOPY? After the test is done you will be moved to the recovery area of the Endoscopy unit. You will rest for one hour or until the effects of the medication have worn off. Your throat may feel sore for a couple of hours. You may feel a fullness in your stomach because of the air used during the test. If you are having an IV sedated procedure, plan that your stay will be 2 1/2- 3 hours. YOU MUST HAVE A RESPONSIBLE ADULT ACCOMPANY YOU HOME FROM THE ENDOSCOPY UNIT BECAUSE OF THE MEDICATION GIVEN. IF YOU HAVE AN AFTERNOON APPOINTMENT, WE EXPECT YOUR RESPONSIBLE ADULT TO REMAIN IN THE WAITING ROOM DURING YOUR PROCEDURE. YOUR PROCEDURE WILL BE RESCHEDULED IF YOU DO NOT HAVE A RESPONSIBLE ADULT A responsible adult should remain with you for the next 24 hours. If using [employer], cab or bus you must still have a responsible adult with you and remain with you for the next 24 hours. Location: [facility] located at [address] [place] [address]. - Plan to arrive at least 60 minutes before your scheduled procedure. Please also plan extra time for parking and shuttle service. - Bring your photo ID, insurance card, and medication insurance card. - Parking is available in the [employer] [facility]ing [facility]age accessible from [facility] [address]. - 02/01 shuttle service from the garage to [facility] is available. - Go to the ground floor of the parking garage to reach the shuttle pick-up station located near the elevator and stairs. - Shuttle service will drop you off at [facility] Main Entr[facility]. - Aeronautical Project Engineer service is available at [facility] Entr[facility] if you would prefer meat apprentice over parking ([facility] [employer] Service Hours: Monday-Monday, 5:30am-8:00pm). - Enter [facility] En[facility] and go to the Admitting/Registration Desk to check in for your procedure. - The Endoscopy department is located on the 1st floor of [facility]. Please call [phone] Monday-Monday, 7:00am-6:00pm if you have any pre-procedural questions. If you are calling AFTER HOURS, please call [phone] to speak to the [facility] Nurse contract administration coordinator. If you need to cancel this appointment prior to the scheduled date, please call the Endoscopy call center at [phone] at least 48 hours before the appointment/procedure time. Hali Gutierrez RN Time Spent Performing this Telephone History: 25 documented in this encounter [facility] 03-07-2024 Telephone encounter Note 1 [facility] [address], [place] [address] 28 de Open Closes 5 PM pended prescription. Prescription needs to be printed and signed. Please give to nursing or PSR to fax Last visit with PCP (KENA MONAE) was 08/24/2023 No future appointment with PCP (KENA MONAE) [facility] 03-07-2024 Miscellaneous Notes 1 [facility] [address], [place] [address] 28 de Open Closes 5 PM pended prescription. Prescription needs to be printed and signed. Please give to nursing or PSR to fax Last visit with PCP (KENA MONAE) was 08/24/2023 No future appointment with PCP (KENA MONAE) documented in this encounter [facility] 02-15-2024 Instructions Frandy Bonilla MD - 02/15/2024 9:46 AM EDT [facility] Division of Gastroenterology [address] [address] UPPER ENDOSCOPY or EGD WHAT IS AN UPPER ENDOSCOPY? Upper endoscopy is a way to look a the inside of the esophagus(food-pipe), the stomach and the duodenum (the first part of the small intestine). A thin, bending tube with a light is used. The doctor looks through this tube. WHAT PREPARATION IS REQUIRED? YOUR STOMACH MUST BE EMPTY. Before the test you should have nothing to eat or drink after midnight. If your procedure is in the afternoon you may drink a small amount ( 6oz) of a clear liquid up to 4 hours before the test. CONTACT YOUR PRIMARY CARE PHYSICIAN FOR THE FOLLOWING: - Regarding any changes or what medication should be taken on the test day. - IF you are taking any BLOOD THINNER MEDICATIONS such as Coumadin, Heparin, Ticlid or Plavix, these may or may not be stopped before your test. - DIABETIC patients ask your doctor about diabetic medications for day before and day of the test. Please check your blood sugar before arriving for the test. WHAT SHOULD YOU EXPECT DURING THE TEST? Your throat may be numbed with a spray. Your doctor will give you a medication through a vein to make you feel relaxed. You may hear sounds around you; this is normal. It is important that you lay still and not talk during the test. You will lie on your left side for the test. The tube will be put into your mouth and then the doctor will ask you to swallow. This is not hard to do because the tube is small. You will have no trouble with breathing. A nurse will be present to assist you before, during, and after the test. WHAT HAPPENS AFTER THE ENDOSCOPY? After the test is done you will be moved to the recovery area of the Endoscopy unit. You will rest for one hour or until the effects of the medication have worn off. Your throat may feel sore for a couple of hours. You may feel a fullness in your stomach because of the air used during the test. If you are having an IV sedated procedure, plan that your stay will be 2 1/2- 3 hours. YOU MUST HAVE A RESPONSIBLE ADULT ACCOMPANY YOU HOME FROM THE ENDOSCOPY UNIT BECAUSE OF THE MEDICATION GIVEN. IF YOU HAVE AN AFTERNOON APPOINTMENT, WE EXPECT YOUR RESPONSIBLE ADULT TO REMAIN IN THE WAITING ROOM DURING YOUR PROCEDURE. YOUR PROCEDURE WILL BE RESCHEDULED IF YOU DO NOT HAVE A RESPONSIBLE ADULT A responsible adult should remain with you for the next 24 hours. If using [employer], cab or bus you must still have a responsible adult with you and remain with you for the next 24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 Registration. Your appointment time may include time for preparation. Please be prompt! Thank you for your cooperation. Question Answer Clinical condition needing evaluation chest pain and history of cardiac disease, incomplete records Comments Insert IV access & flush with 3mL of 0.9% sodium chloride PRN to keep patent, if not already present for LV contrast with Definity and/or saline contrast Please document height and weight if it does not appear below: There were no vitals taken for this visit. Room/bed info not found [facility] for referral (narrative)* Tests/Procedures (Routine) - Authorized Specialty Diagnoses / Procedures Referred By Arvind staton Referred To Contact Gastroenterology Diagnoses Incontinence of feces, unspecified fecal incontinence type Rectal pain Justine Batista MD [address] [place] [phone] [facility] ENDOSCOPY [address] [place] [address] Referral ID Status Reason Start Date Expiration Date Visits Requested Visits Authorized [id number] Authorized Consultatio -[facility] 02/15/2024 02/14/2025 1 1 Scheduling Instructions [facility] Division of Gastroenterology [address] [place] [address] ANORECTAL MANOMETRY WHAT IS ANORECTAL MANOMETRY? Your doctor has recommended Anorectal Manometry (ARM) for evaluation of your problem. This procedure is performed by specially trained nursing staff in a private room. Because of the sensitive nature of your problem, every effort will be made to respect and guard your privacy. ARM assesses the strength of the anal muscles, the rectal sensation, and the ability to have a bowel movement. WHAT PREPARATION IS REQUIRED? Purchase 2 Fleet enemas at any pharmacy. Please take one Fleet enema at home 1-3 hours before the test. You must use a second enema if you do not have a bowel movement after the first enema. Please DO NOT take opioids, like Oxycodone, Oxycontin, Vicodin, Morphine or Methadone for 48 hours before the test. WHAT SHOULD YOU EXPECT DURING THE TEST? You will lie on your side on an exam table. The nurse will first do a rectal exam. Then the nurse will insert a thin, bending tube into your rectum. You will be given a series of instructions of push (act of trying to push stool out) and squeeze (the act of attempting to hold stool) exercises. After the pushes and squeezes are done, we will test your sensory receptors by inflating a small balloon that is attached to the catheter in your rectum and the pressure changes will be recorded. Finally, a small balloon attached to tubing will be inserted in your rectum (to mimic a bowel movement) and you will be timed while you try to push it out. WHAT HAPPENS AFTER THE TEST? The catheter is removed, and your doctor will study the results and contact you within 2-3 weeks. LOCATION: [facility] located at [address] [place] [address]. - Plan to arrive at least 60 minutes before your scheduled procedure. Please also plan extra time for parking and shuttle service. - Bring your photo ID, insurance card, and medication insurance card. - Parking is available in the [facility]age accessible from [address]. - 02/01 shuttle service from the garage to [facility] is available. - Go to the ground floor of the parking garage to reach the shuttle pick-up station located near the elevator and stairs. - Shuttle service will drop you off at [facility] Main Entrance. - Aeronautical Project Engineer service is available at [facility] Main Entrance if you would prefer meat apprentice over parking ([facility] Aeronautical Project Engineer Service Hours: Monday-Monday, 5:30am- 8:00pm). - Enter [facility] Main Entrance and go to the Admitting/Registration Desk to check in for your procedure. - The Endoscopy department is located on the 1st floor of [facility]. Please call [phone] Monday-Monday, 7:00am-6:00pm if you have any pre- procedural questions. If you are calling AFTER HOURS, please call [phone] to speak to the [facility] Nurse contract administration coordinator. If you need to cancel this appointment prior to the scheduled date, please call the Endoscopy call center at [phone] at least 48 hours before the appointment/procedure time. We make every attempt to maintain our schedule; however, it is not always possible. Some procedures may take longer than others and our cases are scheduled to follow one another. We apologize for any delays. If you have any questions before your appointment, please call [phone] or [phone]. To cancel or change your appointment, please call the Gastroenterology team scheduling line at [phone]. [facility] for referral (narrative)* Tests/Procedures (Routine) - Authorized Specialty Diagnoses / Procedures Referred By Arvind staton Referred To Contact Gastroenterology Diagnoses Incontinence of feces, unspecified fecal incontinence type Justine Batista MD [address] [place] [address] [facility] ENDOSCOPY [facility] [id number] [place] [address] Referral ID Status Reason Start Date Expiration Date V isits Requested Visits Authorized [id number] Authorized 03/07/2024 03/07/2025 7 7 Scheduling Instructions Biofeedback Patient Instructions Appointment Information: [facility] is located at [address] [place] [address]. Please plan to arrive at least 60 minutes before your scheduled procedure. Bring your photo ID, insurance card, and current medication insurance card. Parking is available at the west entrance, and you will enter through the doors with "OUTPATIENT SURGERY" signage. Upon entry the registration process will begin. Once completed, you will take the elevators to the FOURTH FLOOR, where a waiting area is located, a member of the endoscopy team will receive the patient. Please call [phone] Monday-Monday, 7:00am-6:00pm if you have any pre- procedural questions. If you are calling AFTER HOURS, please call [phone] to speak to the [facility] Nurse contract administration coordinator. If you need to cancel this appointment prior to the scheduled date, please call the Endoscopy call center at [phone] at least 48 hours before the appointment/procedure time. Procedure Information: Q: What is biofeedback? A: It is a type of therapy where we work on the pelvic muscle and anal sphincter in order to achieve acceptable bowel movements and strengthen the coordination between both sets of muscles. Q: What can I expect during this procedure? A: You will come to the GI Clinic once a week for seven weeks. We will work with you and your unique problems by giving you specialized exercises and by keeping track of your bowel movements. You will be given a diary to help us better understand your unique situation. Procedure Instructions: Please take 1 enema at home one hour before your test. A Fleets enema can be purchased over the counter at any pharmacy. Post-Procedure: Your doctor will study the results. You will be contacted within three weeks of the conclusion of your seven training sessions to review your results and discuss next steps. For additional questions about your test, please call GI Motility Lab nurse at [phone] or GI nurse [phone] Monday-Monday 7am-5:30pm. [facility] for referral (narrative)* Tests/Procedures (Routine) - Authorized Specialty Diagnoses / Procedures Referred By Arvind staton Referred To Contact Gastroenterology Diagnoses Incontinence of feces, unspecified fecal incontinence type Justine Batista MD [address] [place] [phone] [facility] [place] [address] Referral ID Status Reason Start Date Expiration Date V isits Requested Visits Authorized [id number] Authorized 03/07/2024 03/07/2025 7 7 Scheduling Instructions Biofeedback Patient Instructions Appointment Information: [facility] is located at [address] [place] [address]. Please plan to arrive at least 60 minutes before your scheduled procedure. Bring your photo ID, insurance card, and current medication insurance card. Parking is available at the west entrance, and you will enter through the doors with "OUTPATIENT SURGERY" signage. Upon entry the registration process will begin. Once completed, you will take the elevators to the FOURTH FLOOR, where a waiting area is located, a member of the endoscopy team will receive the patient. Please call [phone] Monday-Monday, 7:00am-6:00pm if you have any pre- procedural questions. If you are calling AFTER HOURS, please call [phone] to speak to the [facility] Nurse contract administration coordinator. If you need to cancel this appointment prior to the scheduled date, please call the Endoscopy call center at [phone] at least 48 hours before the appointment/procedure time. Procedure Information: Q: What is biofeedback? A: It is a type of therapy where we work on the pelvic muscle and anal sphincter in order to achieve acceptable bowel movements and strengthen the coordination between both sets of muscles. Q: What can I expect during this procedure? A: You will come to the GI Clinic once a week for seven weeks. We will work with you and your unique problems by giving you specialized exercises and by keeping track of your bowel movements. You will be given a diary to help us better understand your unique situation. Procedure Instructions: Please take 1 enema at home one hour before your test. A Fleets enema can be purchased over the counter at any pharmacy. Post-Procedure: Your doctor will study the results. You will be contacted within three weeks of the conclusion of your seven training sessions to review your results and discuss next steps. For additional questions about your test, please call GI Motility Lab nurse at [phone] or GI nurse [phone] Monday-Monday 7am-5:30pm. [facility] Tests/Procedures (Routine) - Pending Review Specialty Diagnoses / Procedures Referred By Arvind staton Referred To Contact Urology Diagnoses Bladder mass Abnormal finding on imaging Procedures CYSTOURETHROSCOPY (SEP PROC) Cat Wang APRN-CNP [address] [place] [address] [facility] SURGERY PROCEDURE GLADYS [address] [place] [address] Referral ID Status Reason Start Date Expiration Date Visits Requested Visits Authorized [id number] Pending Review Consultatio [facility] 04/01/2025 1 1 Scheduling Instructions Please contact one of the following locations to schedule an appointment if one was not made for you today. [facility], or [facility], Question Answer REASON FOR EVALUATION Cystoscopy Cysto Type Cysto Request Date Next Available [facility] for referral (narrative)* Tests/Procedures (Routine) - Authorized Specialty Diagnoses / Procedures Referred By Arvind staton Referred To Contact Gastroenterology Diagnoses Incontinence of feces, unspecified fecal incontinence type Justine Batista MD [address] [place] [address], [place] [address] [facility] [place] [address] Referral ID Status Reason Start Date Expiration Date V isits Requested Visits Authorized [id number] Authorized 03/07/2024 03/07/2025 7 7 Scheduling Instructions Biofeedback Patient Instructions Appointment Information: [facility] is located at [address] [place] [address]. Please plan to arrive at least 60 minutes before your scheduled procedure. Bring your photo ID, insurance card, and current medication insurance card. Parking is available at the west entrance, and you will enter through the doors with "OUTPATIENT SURGERY" signage. Upon entry the registration process will begin. Once completed, you will take the elevators to the FOURTH FLOOR, where a waiting area is located, a member of the endoscopy team will receive the patient. Please call [phone] Monday-Monday, 7:00am-6:00pm if you have any pre- procedural questions. If you are calling AFTER HOURS, please call [phone] to speak to the [facility] Nurse contract administration coordinator. If you need to cancel this appointment prior to the scheduled date, please call the Endoscopy call center at [phone] at least 48 hours before the appointment/procedure time. Procedure Information: Q: What is biofeedback? A: It is a type of therapy where we work on the pelvic muscle and anal sphincter in order to achieve acceptable bowel movements and strengthen the coordination between both sets of muscles. Q: What can I expect during this procedure? A: You will come to the GI Clinic once a week for seven weeks. We will work with you and your unique problems by giving you specialized exercises and by keeping track of your bowel movements. You will be given a diary to help us better understand your unique situation. Procedure Instructions: Please take 1 enema at home one hour before your test. A Fleets enema can be purchased over the counter at any pharmacy. Post-Procedure: Your doctor will study the results. You will be contacted within three weeks of the conclusion of your seven training sessions to review your results and discuss next steps. For additional questions about your test, please call GI Motility Lab nurse at [phone] or GI nurse [phone] Monday-Monday 7am-5:30pm. [facility] for referral (narrative)* Tests/Procedures (Routine) - Authorized Specialty Diagnoses / Procedures Referred By Arvind staton Referred To Contact Gastroenterology Diagnoses Incontinence of feces, unspecified fecal incontinence type Justine Batista MD [address] [place] [address] [facility] [place] [address] Referral ID Status Reason Start Date Expiration Date V isits Requested Visits Authorized [id number] Authorized 03/07/2024 03/07/2025 7 7 Scheduling Instructions Biofeedback Patient Instructions Appointment Information: [facility] is located at [address] [place] [address]. Please plan to arrive at least 60 minutes before your scheduled procedure. Bring your photo ID, insurance card, and current medication insurance card. Parking is available at the west entrance, and you will enter through the doors with "OUTPATIENT SURGERY" signage. Upon entry the registration process will begin. Once completed, you will take the elevators to the FOURTH FLOOR, where a waiting area is located, a member of the endoscopy team will receive the patient. Please call [phone] Monday-Monday, 7:00am-6:00pm if you have any pre- procedural questions. If you are calling AFTER HOURS, please call [phone] to speak to the [facility] Nurse contract administration coordinator. If you need to cancel this appointment prior to the scheduled date, please call the Endoscopy call center at [phone] at least 48 hours before the appointment/procedure time. Procedure Information: Q: What is biofeedback? A: It is a type of therapy where we work on the pelvic muscle and anal sphincter in order to achieve acceptable bowel movements and strengthen the coordination between both sets of muscles. Q: What can I expect during this procedure? A: You will come to the GI Clinic once a week for seven weeks. We will work with you and your unique problems by giving you specialized exercises and by keeping track of your bowel movements. You will be given a diary to help us better understand your unique situation. Procedure Instructions: Please take 1 enema at home one hour before your test. A Fleets enema can be purchased over the counter at any pharmacy. Post-Procedure: Your doctor will study the results. You will be contacted within three weeks of the conclusion of your seven training sessions to review your results and discuss next steps. For additional questions about your test, please call GI Motility Lab nurse at [phone] or GI nurse [phone] Monday-Monday 7am-5:30pm. Zabrina for visit Narrative* Tests/Procedures (Routine) - Closed Specialty Diagnoses / Procedures Referred By Contact Referred To Contact Cardiovascular Testing Diagnoses Chest pain, unspecified type Procedures STRESS TEST EXER/EKG TRACING CARDIOVASCR STRESS TEST-INTRP ECHOCARDIOGRM FOR STRESS TEST Amelia Alvarez MD [address] [place] [address] [facility] CARD NON INVASIVE [address] [place] [address] Referral ID Status Reason Start Date Expiration Date V isits Requested Visits Authorized [id number] Closed Transfer of [facility] 09/06/2022 11/05/2022 1 [facility] N[facility]* Tests/Procedures (Routine) - Closed Specialty Diagnoses / Procedures Referred By Contact Referred To Contact Cardiovascular Testing Diagnoses Chest pain on exertion Procedures STRESS TEST EXER/EKG TRACING CARDIOVASCR STRESS TEST-INTRP HT MUSCLE IMAGE SPECT, Amelia Robbins MD [address] [place] [address] [facility] CARD NON INVASIVE [address] [place] [address] Referral ID Status Reason Start Date Expiration Date V isits Requested Visits Authorized [id number] Closed Transfer of [facility] 10/03/2022 12/02/2022 1 1 [facility] Tests/Procedures (Routine) - Authorized Specialty Diagnoses / Procedures Referred By Kamiac t Referred To Contact Gastroenterology Diagnoses Incontinence of feces, unspecified fecal incontinence type Justine Batista MD [address] [place] [address] [facility] [place] [address] Referral ID Status Reason Start Date Expiration Date V isits Requested Visits Authorized [id number] Authorized 03/07/2024 03/07/2025 7 7 [facility] Tests/Procedures (Routine) - Authorized Specialty Diagnoses / Procedures Referred By Arvind t Referred To Contact Gastroenterology Diagnoses Incontinence of feces, unspecified fecal incontinence type Justine Batista MD [address] [place] [address] Phone: tel: fax: [facility] [place] [address] Phone: tel: Referral ID Status Reason Start Date Expiration Date V isits Requested Visits Authorized [id number] Authorized 03/07/2024 03/07/2025 7 7 [facility]* Tests/Procedures (Routine) - Closed Specialty Diagnoses / Procedures Referred By Contac t Referred To Contact Sleep Medicine Diagnoses Excessive daytime sleepiness Sleep disturbance JUAN FRANCISCO (obstructive sleep apnea) Procedures POLYSOMNOGRAM Quique Davies MD [address] [place] [address] Phone: tel: fax: [facility] SLEEP LAB [address] [place] [address] Phone: tel: Referral ID Status Reason Start Date Expiration Date V isits Requested Visits Authorized [id number] Closed Consultation -[facility] 10/11/2024 02/11/2025 1 1 [facility]* Service Level Authorization (Routine) - Pending Review Specialty Diagnoses / Procedures Referred By Contac t Referred To Contact Pulmonary Medicine Diagnoses [place]ys[place], [place] [address] [facility] [address] [place] [address] Phone: tel: fax: [facility] [address] [place] [address] Phone: tel: Referral ID Status Reason Start Date Expiration Date V isits Requested Visits Authorized [id number] Pending Review 05/01/2024 05/01/2025 3 3 [facility] Chief Complaint and Reason for Visit Chief Complaint SI Chief Complaint SI CHEST Reason for Visit Acute psychosis Suicidal thoughts Chief Complaint CHEST DENTAL Advance Directives No Advanced Directives Records FoundDocuments on File Type Date Recorded 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 This is the code status chosen by the patient/surrogate. Date Activated Date Inactivated Comments 03/17/2020 5:33 PM 03/26/2020 4:43 PM Question Answer Comments Documentation of decision pr ocess for this code status: Discussed with patient or surrogate. This is the code status chosen by the patient/surrogate. 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 Thi s is the code status chosen by the patient/surrogate. Full Code 03/17/2020 5:33 PM 03/26/2020 4:43 PM Latest Code Status on File Code Status Date Activated Date Inactivated Comments Full Code 03/26/2020 4:43 PM 04/07/2020 1:26 PM Full Code 03/17/2020 5:33 PM 03/26/2020 4:43 PM Latest Code Status on File Code Status Date Activated Date Inactivated Comments Full Code 03/26/2020 4:43 PM 04/07/2020 1:26 PM Question Answer Comments Documentation of decision process for this code status: Discussed with patient or surrogate. This is the code status chosen by the patient/surrogate. Code Status History Code Status Date Activated Date Inactivated Comments Full Code 03/17/2020 5:33 PM 03/26/2020 4:43 PM Question Answer Comments Documentation of decision process for this code status: Discussed with patient or surrogate. This is the code status chosen by the patient/surrogate. Latest Code Status on File Code Status Date Activated Date Inactivated Comments Full Code 03/26/2020 4:43 PM 04/07/2020 1:26 PM Question Answer Comments Documentation of decision process for this code status: Discussed with patient or surrogate. This is the code status chosen by the patient/surrogate. Code Status History Code Status Date Activated Date Inactivated Comments Full Code 03/17/2020 5:33 PM 03/26/2020 4:43 PM Question Answer Comments Documentation of decision process for this code status: Discussed with patient or surrogate. This is the code status chosen by the patient/surrogate. Advance Directive Response Recorded Date/ Time Living Will No September 04, 2022 9:08am Power of Fast Food Attendant No September 04 9:08am Latest Code Status on File Code Status Date Activated Date Inactivated Comments Full Code 03/26/2020 4:43 PM 04/07/2020 1:26 PM Question Answer Comments Documentation of decision process for this code status: Discussed with patient or surrogate. This is the code status chosen by the patient/surrogate. Code Status History Code Status Date Activated Date Inactivated Comments Full Code 03/17/2020 5:33 PM 03/26/2020 4:43 PM Question Answer Comments Documentation of decision process for this code status: Discussed with patient or surrogate. This is the code status chosen by the patient/surrogate. Date Activated Date Inactivated Comments 03/26/2020 4:43 PM 04/07/2020 1:26 PM Question Answer Comments Documentation of decision pr ocess for this code status: Discussed with patient or surrogate. This is the code status chosen by the patient/surrogate. Date Activated Date Inactivated Comments 03/17/2020 5:33 PM 03/26/2020 4:43 PM Question Answer Comments Documentation of decision pr ocess for this code status: Discussed with patient or surrogate. This is the code status chosen by the patient/surrogate. Reason for Referral Specialty Diagnoses / Procedures Referred By Contac t Referred To Contact Radiology Diagnoses Post-traumatic osteoarthritis of right hip Procedures XR RT HIP W/ PELVIS MIN 2-3 VIEWS Jarett Phelan DO [address] [place] [address] [place] [address] [facility] DIAGNOSTIC RADIOLOGY [address] [place] [address] [place] [address] Referral ID Status Reason Start Date Expiration Date Visits Re quested Visits Authorized [id number] Closed 06/15/2022 06/15/2023 1 1 Specialty Diagnoses / Procedures Referred By Contac t Referred To Contact Radiology Diagnoses Chest pain on exertion Procedures NM HT MUSCLE IMAGE SPECT, MULTI HT MUSCLE IMAGE SPECT, MULT Card Invasive [address] [place] [address] [facility] CARD INVASIVE [address] [place] [address] Referral ID Status Reason Start Date Expiration Date V isits Requested Visits Authorized [id number] Closed Transfer of Care-[facility] 10/03/2022 12/02/2022 1 1 Specialty Diagnoses / Procedures Referred By Contac t Referred To Contact Cardiology Diagnoses Presence of IVC filter Panda Johnson MD [address] [place] [address] [place] [address] [facility] CARDIOLOGY HV [address] [place] [address] Referral ID Status Reason Start Date Expiration Date V isits Requested Visits Authorized [id number] Authorized 12/21/2022 06/19/2023 3 3 Scheduling Instructions Please call [phone] for an Inpatient Vascular Medicine Consult Comments Most recent visit in Cardiology was on 12/02/2022 with Tavares Thornton MD Specialty Diagnoses / Procedures Referred By Contac t Referred To Contact Cardiology Diagnoses S/P IVC filter Panda Johnson MD [address] [place] [address] [place] [address] [facility] CARDIOLOGY HV [address] [place] [address] Referral ID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 [address] 14060 Fellow Electrophysiology 07/16/22 Tavares Thornton MD [address] [place] [phone] Physician Cardiology 12/10/22 Compliance Investigator Relationship Specialty Start Date End Date Kena Monae MD [address] [place] [address] 70032 PCP - General Internal Medicine 12/21/22 Jarett Phelan DO [address] [place] [address] [place] [address] Physician Orthopaedic Trauma 04/17/20 Hali Holder, OTR/L [address] [place] [address] 35297 Occupational Therapist Occupational Therapy 04/17/20 Frank Brown MD [address] [place] [address] Physician Orthopaedic Hand Service 05/15/20 Chika Painter, CHEMISTRY INTERN-PRODUCTION SUPPORT MANAGER [address] [place] [address] [place] [address] SPACE SYSTEMS OPERATIONS SUPERINTENDENT Anesthesiology 01/15/21 Aileen Garcia DO [address] [place] [address] 04659 Fellow Electrophysiology 07/16/22 Tavares Thornton MD [address] [place] [address] Physician Cardiology 12/10/22 Compliance Investigator Relationship Specialty Start Date End Date Kena Monae MD [address] [place] [address] 24668 PCP - General Internal Medicine 12/21/22 Jarett Phelan DO [address] [place] [address] [place] [address] Physician Orthopaedic Trauma 04/17/20 Hali Holder, OTR/L [address] [place] [address] 87379 Occupational Therapist Occupational Therapy 04/17/20 Frank Brown MD [address] [place] [address] Physician Orthopaedic Hand Service 05/15/20 Chika Painter, CHEMISTRY INTERN-PRODUCTION SUPPORT MANAGER [address] [place] [address] [place] [address] SPACE SYSTEMS OPERATIONS SUPERINTENDENT Anesthesiology 01/15/21 Aileen Garcia DO [address] [place] [address] 83539 Fellow Electrophysiology 07/16/22 Tavares Thornton MD [address] [place] [address] Physician Cardiology 12/10/22 Compliance Investigator Relationship Specialty Start Date End Date Kena Monae MD [address] [place] [address] 57378 PCP - General Internal Medicine 12/21/22 Jarett Phelan DO [address] [place] [address] [place] [address] Physician Orthopaedic Trauma 04/17/20 Hali Holder OTR/L [address] [place] [address] 83995 Occupational Therapist Occupational Therapy 04/17/20 Frank Brown MD [address] [place] [address] Physician Orthopaedic Hand Service 05/15/20 Chika Painter APRN-PRODUCTION SUPPORT MANAGER [address] [place] [address] [place] [address] SPACE SYSTEMS OPERATIONS SUPERINTENDENT Anesthesiology 01/15/21 Aileen Garcia DO [address] [place] [address] 46139 Fellow Electrophysiology 07/16/22 Tavares Thornton MD [address] [place] [address] Physician Cardiology 12/10/22 Compliance Investigator Relationship Specialty Start Date End Date Kena Monae MD [address] [place] [address] 12835 PCP - General Internal Medicine 12/21/22 Jarett Phelan DO [address] [place] [address] [place] [address] Physician Orthopaedic Trauma 04/17/20 Hali Holder OTR/L [address] [place] [address] 94909 Occupational Therapist Occupational Therapy 04/17/20 Frank Brown MD [address] [place] [address] Physician Orthopaedic Hand Service 05/15/20 Chika Painter APRN-PRODUCTION SUPPORT MANAGER [address] [place] [address] [place] [address] SPACE SYSTEMS OPERATIONS SUPERINTENDENT Anesthesiology 01/15/21 Aileen Garcia DO [address] [place] [address] [phone] Fellow Electrophysiology 07/16/22 Tavares Thornton MD [address] [place] [phone] Physician Cardiology 12/10/22 Compliance Investigator Relationship Specialty Start Date End Date Kena Monae MD [address] [place] [address] 69926 PCP - General Internal Medicine 12/21/22 Jarett Phelan DO [address] [place] [address] [place] [address] Physician Orthopaedic Trauma 04/17/20 Hali Holder, OTR/L [address] [place] [address] 84704 Occupational Therapist Occupational Therapy 04/17/20 Frank Brown MD [address] [place] [phone] Physician Orthopaedic Hand Service 05/15/20 Chika Painter CHEMISTRY INTERN-PRODUCTION SUPPORT MANAGER [address] [place] [address] [place] [address] SPACE SYSTEMS OPERATIONS SUPERINTENDENT Anesthesiology 01/15/21 Aileen Garcia DO [address] [place] [address] 09494 Fellow Electrophysiology 07/16/22 Tavares Thornton MD [address] [place] [address] Physician Cardiology 12/10/22 Compliance Investigator Relationship Specialty Start Date End Date Kena Monae MD [address] [place] [address] 47994 PCP - General Internal Medicine 12/21/22 Jarett Phelan DO [address] [place] [address] [place] [address] Physician Orthopaedic Trauma 04/17/20 Hali Holder OTR/L [address] [place] [address] 83556 Occupational Therapist Occupational Therapy 04/17/20 Frank Brown MD [address] [place] [address] Physician Orthopaedic Hand Service 05/15/20 Chika Painter, CHEMISTRY INTERN-PRODUCTION SUPPORT MANAGER [address] [place] [address] [place] [address] SPACE SYSTEMS OPERATIONS SUPERINTENDENT Anesthesiology 01/15/21 Aileen Garcia DO [address] [place] [address] 03730 Fellow Electrophysiology 07/16/22 Tavares Thornton MD [address] [place] [address] Physician Cardiology 12/10/22 Compliance Investigator Relationship Specialty Start Date End Date Kena Monae MD [address] [place] [address] 50073 PCP - General Internal Medicine 12/21/22 Jarett Phelan DO [address] [place] [address] [place] [address] Physician Orthopaedic Trauma 04/17/20 Hali Holder, OTR/L [address] [place] [address] 01400 Occupational Therapist Occupational Therapy 04/17/20 Frank Brown MD [address] [place] [phone] Physician Orthopaedic Hand Service 05/15/20 Chika Painter APRN-PRODUCTION SUPPORT MANAGER [address] [place] [address] [place] [address] SPACE SYSTEMS OPERATIONS SUPERINTENDENT Anesthesiology 01/15/21 Aileen Garcia DO [address] [place] [address] 71448 Fellow Electrophysiology 07/16/22 Tavares Thornton MD [address] [place] [phone] Physician Cardiology 12/10/22 Compliance Investigator Relationship Specialty Start Date End Date Kena Monae MD [address] [place] [address] 92658 PCP - General Internal Medicine 12/21/22 Jarett Phelan DO [address] [place] [address] [place] [address] Physician Orthopaedic Trauma 04/17/20 Hali Holder, OTR/L [address] [place] [address] 04186 Occupational Therapist Occupational Therapy 04/17/20 Frank Brown MD [address] [place] [address] Physician Orthopaedic Hand Service 05/15/20 Chika Painter APRN-PRODUCTION SUPPORT MANAGER [address] [place] [address] [place] [address] SPACE SYSTEMS OPERATIONS SUPERINTENDENT Anesthesiology 01/15/21 Aileen Garcia DO [address] [place] [address] 89803 Fellow Electrophysiology 07/16/22 Tavares Thornton MD [address] [place] [address] Physician Cardiology 12/10/22 Compliance Investigator Relationship Specialty Start Date End Date Kena Monae MD [address] [place] [address] 01444 PCP - General Internal Medicine 12/21/22 Jarett Phelan DO [address] [place] [address] [place] [address] Physician Orthopaedic Trauma 04/17/20 Hali Holder, OTR/L [address] [place] [address] 96186 Occupational Therapist Occupational Therapy 04/17/20 Frank Brown MD [address] [place] [address] Physician Orthopaedic Hand Service 05/15/20 Chika Painter APRN-PRODUCTION SUPPORT MANAGER [address] [place] [address] [place] [address] SPACE SYSTEMS OPERATIONS SUPERINTENDENT Anesthesiology 01/15/21 Aileen Garcia DO [address] [place] [address] 51950 Fellow Electrophysiology 07/16/22 Tavares Thornton MD [address] [place] [phone] Physician Cardiology 12/10/22 Bjorn Degroot MD [address] [place] [address] [place] [address] Fellow Gastroenterology 08/12/23 Compliance Investigator Relationship Specialty Start Date End Date Kena Monae MD [address] [place] [address] [phone] PCP - General Internal Medicine 12/21/22 Jarett Phelan DO [address] [place] [address] [place] [address] Physician Orthopaedic Trauma 04/17/20 Hali Holder OTR/L [address] [place] [address] 44205 Occupational Therapist Occupational Therapy 04/17/20 Frank Brown MD [address] [place] [address] Physician Orthopaedic Hand Service 05/15/20 Chika Painter, CHEMISTRY INTERN-PRODUCTION SUPPORT MANAGER [address] [place] [address] [place] [address] SPACE SYSTEMS OPERATIONS SUPERINTENDENT Anesthesiology 01/15/21 Aileen Garcia DO [address] [place] [address] 30320 Fellow Electrophysiology 07/16/22 Tavares Thornton MD [address] [place] [address] Physician Cardiology 12/10/22 Bjorn Degroot MD [address] [place] [address] [place] [address] Fellow Gastroenterology 08/12/23 Compliance Investigator Relationship Specialty Start Date End Date Kena Monae MD [address] [place] [address] 30453 PCP - General Internal Medicine 12/21/22 Jarett Phelan DO [address] [place] [address] [place] [address] Physician Orthopaedic Trauma 04/17/20 Hali Holder, TAYLORR/L [address] [place] [address] 14616 Occupational Therapist Occupational Therapy 04/17/20 Frank Brown MD [address] [place] [address] Physician Orthopaedic Hand Service 05/15/20 Chika Painter APRN-PRODUCTION SUPPORT MANAGER [address] [place] [address] [place] [address] SPACE SYSTEMS OPERATIONS SUPERINTENDENT Anesthesiology 01/15/21 Aileen Garcia DO [address] [place] [address] 07348 Fellow Electrophysiology 07/16/22 Tavares Thornton MD [address] [place] [address] [phone] (Work) Physician Cardiology 12/10/22 Bjorn Degroot MD [address] [place] [address] [place] [address] Fellow Gastroenterology 08/12/23 Eleni Manrique MD [address] [place] [address] [place] [address] Physician Cardiology 10/14/23 Compliance Investigator Relationship Specialty Start Date End Date Kena Monae MD [address] [place], [place] [id number] PCP - General Internal Medicine 12/21/22 Jarett Phelan DO [address] [place] [address] [place] [address] Physician Orthopaedic Trauma 04/17/20 Hali Holder, OTR/L [address] [place] [address] Occupational Therapist Occupational Therapy 04/17/20 Frank Brown MD [address] [place] [address] Physician Orthopaedic Hand Service 05/15/20 Chika Painter, CHEMISTRY INTERN-PRODUCTION SUPPORT MANAGER [address] [place] [address] [place] [address] SPACE SYSTEMS OPERATIONS SUPERINTENDENT Anesthesiology 01/15/21 Aileen Garcia DO [address] [place] [address] 16771 Fellow Electrophysiology 07/16/22 Tavares Thornotn MD [address] [place] [address] [phone] (Work) Physician Cardiology 12/10/22 Bjorn Degroot MD [address] [place] [address] [place] [address] Fellow Gastroenterology 08/12/23 Eleni Manrique MD [address] [place] [address] [place] [address] Physician Cardiology 10/14/23 Compliance Investigator Relationship Specialty Start Date End Date Kena Monae MD [address] [place], [place] [id number] PCP - General Internal Medicine 12/21/22 Jarett Phelan DO [address] [place] [address] [place] [address] Physician Orthopaedic Trauma 04/17/20 Hali Holder, TAYLORR/L [address] [place] [address] 01552 Occupational Therapist Occupational Therapy 04/17/20 Frank Brown MD [address] [place] [address] Physician Orthopaedic Hand Service 05/15/20 Chika Painter, CHEMISTRY INTERN-PRODUCTION SUPPORT MANAGER [address] [place] [address] [place] [address] SPACE SYSTEMS OPERATIONS SUPERINTENDENT Anesthesiology 01/15/21 Aileen Garcia DO [address] [place] [address] [id number] Fellow Electrophysiology 07/16/22 Tavares Thornton MD [address] [place] [phone] Physician Cardiology 12/10/22 Bjorn Degroot MD [address] [place] [address] [place] [address] Fellow Gastroenterology 08/12/23 Eleni Manrique MD [address] [place] [address] [place] [address] Physician Cardiology 10/14/23 Compliance Investigator Relationship Specialty Start Date End Date Kena Monae MD [address] [place] [address] PCP - General Internal Medicine 12/21/22 Jarett Phelan DO [address] [place] [address] [address] [place] [id number] Physician Orthopaedic Trauma 04/17/20 Hali Holder, OTR/L [address] [place] [address] Occupational Therapist Occupational Therapy 04/17/20 Frank Brown MD [address] [place] [address] Physician Orthopaedic Hand Service 05/15/20 Chika Painter CHEMISTRY INTERN-PRODUCTION SUPPORT MANAGER [address] [place] [address] [place] [address] SPACE SYSTEMS OPERATIONS SUPERINTENDENT Anesthesiology 01/15/21 Aileen Garcia DO [address] [place] [address] 00111 Fellow Electrophysiology 07/16/22 Tavares Thornton MD [address] [place] [address] Physician Cardiology 12/10/22 Bjorn Degroot MD [address] [place] [address] [place] [address] Fellow Gastroenterology 08/12/23 Eleni Manrique MD [address] [place] [address] [place] [address] Physician Cardiology 10/14/23 Compliance Investigator Relationship Specialty Start Date End Date Kena Monae MD [address] [place], [place] [id number] PCP - General Internal Medicine 12/21/22 Jarett Phelan DO [address] [place] [address] [place] [address] Physician Orthopaedic Trauma 04/17/20 Hali Holder, OTR/L [address] [place], [place] [id number] Occupational Therapist Occupational Therapy 04/17/20 Frank Brown MD [address] [place] [address] Physician Orthopaedic Hand Service 05/15/20 Chika Painter, CHEMISTRY INTERN-PRODUCTION SUPPORT MANAGER [address] [place] [address] [place] [address] SPACE SYSTEMS OPERATIONS SUPERINTENDENT Anesthesiology 01/15/21 Aileen Garcia DO [address] [place] [address] [phone] Fellow Electrophysiology 07/16/22 Tavares Thornton MD [address] [place] [address] Physician Cardiology 12/10/22 Bjorn Degroot MD [address] [place] [address] [place] [address] Fellow Gastroenterology 08/12/23 Eleni Manrique MD [address] [place] [address] [place] [address] Physician Cardiology 10/14/23 Compliance Investigator Relationship Specialty Start Date End Date Kena Monae MD [address] [place] [address] PCP - General Internal Medicine 12/21/22 Jarett Phelan DO [address] [place] [address] [place] [address] Physician Orthopaedic Trauma 04/17/20 Hali Holder, OTR/L [address] [place] [address] Occupational Therapist Occupational Therapy 04/17/20 Frank Brown MD [address] [place] [address] Physician Orthopaedic Hand Service 05/15/20 Chika Painter, CHEMISTRY INTERN-PRODUCTION SUPPORT MANAGER [address] [place] [address] [place] [address] SPACE SYSTEMS OPERATIONS SUPERINTENDENT Anesthesiology 01/15/21 Aileen Garcia DO [address] [place] [address] 58024 Fellow Electrophysiology 07/16/22 Tavares Thornton MD [address] [place] [address] Physician Cardiology 12/10/22 Bjorn Degroot MD [address] [place] [address] [place] [address] Fellow Gastroenterology 08/12/23 Eleni Manrique MD [address] [place] [address] [place] [address] Physician Cardiology 10/14/23 Compliance Investigator Relationship Specialty Start Date End Date Kena Monae MD [address] [place] [address] PCP - General Internal Medicine 12/21/22 Jarett Phelan DO [address] [place] [address] [place] [address] Physician Orthopaedic Trauma 04/17/20 Hali Holder, OTR/L [address] [place] [address] Occupational Therapist Occupational Therapy 04/17/20 Frank Brown MD [address] [place] [address] Physician Orthopaedic Hand Service 05/15/20 Chika Painter, CHEMISTRY INTERN-PRODUCTION SUPPORT MANAGER [address] [place] [address] [place] [address] SPACE SYSTEMS OPERATIONS SUPERINTENDENT Anesthesiology 01/15/21 Aileen Garcia DO [address] [place] [address] 92186 Fellow Electrophysiology 07/16/22 Tavares Thornton MD [address] [place] [address] Physician Cardiology 12/10/22 Bjorn Degroot MD [address] [place] [address] [place] [address] Fellow Gastroenterology 08/12/23 Eleni Manrique MD [address] [place] [address] [place] [address] Physician Cardiology 10/14/23 Compliance Investigator Relationship Specialty Start Date End Date Kena Monae MD [address] [place] [address] PCP - General Internal Medicine 12/21/22 Jarett Phelan DO [address] [place] [address] [address] [place] [id number] Physician Orthopaedic Trauma 04/17/20 Hali Holder, OTR/L [address] [place] [address] Occupational Therapist Occupational Therapy 04/17/20 Frank Brown MD [address] [place] [address] Physician Orthopaedic Hand Service 05/15/20 Chika Painter APRN-PRODUCTION SUPPORT MANAGER [address] [place] [address] [place] [address] SPACE SYSTEMS OPERATIONS SUPERINTENDENT Anesthesiology 01/15/21 Aileen Garcia DO [address] [place] [address] 51997 Fellow Electrophysiology 07/16/22 Tavares Thornton MD [address] [place] [address] Physician Cardiology 12/10/22 Bjorn Degroot MD [address] [place] [address] [place] [address] Fellow Gastroenterology 08/12/23 Eleni Manrique MD [address] [place] [address] [place] [address] Physician Cardiology 10/14/23 Compliance Investigator Relationship Specialty Start Date End Date Kena Monae MD [address] [place], [place] [id number] PCP - General Internal Medicine 12/21/22 Jarett Phelan DO [address] [place] [address] [place] [address] Physician Orthopaedic Trauma 04/17/20 Hali Holder, OTR/L [address] [place], [place] [id number] Occupational Therapist Occupational Therapy 04/17/20 Frank Brown MD [address] [place] [address] Physician Orthopaedic Hand Service 05/15/20 Chika Painter APRN-PRODUCTION SUPPORT MANAGER [address] [place] [address] [place] [address] SPACE SYSTEMS OPERATIONS SUPERINTENDENT Anesthesiology 01/15/21 Aileen Garcia DO [address] [place] [address] 31574 Fellow Electrophysiology 07/16/22 Tavares Thornton MD [address] [place] [phone] Physician Cardiology 12/10/22 Bjorn Degroot MD [address] [place] [address] [place] [address] Fellow Gastroenterology 08/12/23 Eleni Manrique MD [address] [place] [address] [place] [address] Physician Cardiology 10/14/23 Compliance Investigator Relationship Specialty Start Date End Date Kena Monae MD [address] [place] [address] PCP - General Internal Medicine 12/21/22 Jarett Phelan DO [address] [place] [address] [place] [address] Physician Orthopaedic Trauma 04/17/20 Hali Holder, TAYLORR/L [address] [place] [address] Occupational Therapist Occupational Therapy 04/17/20 Frank Brown MD [address] [place] [address] Physician Orthopaedic Hand Service 05/15/20 Chika Painter APRN-PRODUCTION SUPPORT MANAGER [address] [place] [address] [place] [address] SPACE SYSTEMS OPERATIONS SUPERINTENDENT Anesthesiology 01/15/21 Aileen Garcia DO [address] [place] [address] 72048 Fellow Electrophysiology 07/16/22 Tavares Thornton MD [address] [place] [address] Physician Cardiology 12/10/22 Bjorn Degroot MD [address] [place] [address] [place] [address] Fellow Gastroenterology 08/12/23 Eleni Manrique MD [address] [place] [address] [place] [address] Physician Cardiology 10/14/23 Compliance Investigator Relationship Specialty Start Date End Date Kena Monae MD [address] [place] [address] 44757 PCP - General Internal Medicine 12/21/22 Jarett Phelan DO [address] [place] [address] [place] [address] Physician Orthopaedic Trauma 04/17/20 Hali Holder, TAYLORR/L [address] [place] [address] 85014 Occupational Therapist Occupational Therapy 04/17/20 Frank Brown MD [address] [place] [address] Physician Orthopaedic Hand Service 05/15/20 Chika Painter APRN-PRODUCTION SUPPORT MANAGER [address] [place] [address] [place] [address] SPACE SYSTEMS OPERATIONS SUPERINTENDENT Anesthesiology 01/15/21 Aileen Garcia DO [address] [place] [address] 41394 Fellow Electrophysiology 07/16/22 Tavares Thornton MD [address] [place] [address] Physician Cardiology 12/10/22 Bjorn Degroot MD [address] [place] [address] [place] [address] Fellow Gastroenterology 08/12/23 Eleni Manrique MD [address] [place] [address] [place] [address] Physician Cardiology 10/14/23 Compliance Investigator Relationship Specialty Start Date End Date Kena Monae MD [address] [place] [address] 52015 PCP - General Internal Medicine 12/21/22 Jarett Phelan DO [address] [place] [address] [place] [address] Physician Orthopaedic Trauma 04/17/20 Hali Holder, OTR/L [address] [place] [address] 01131 Occupational Therapist Occupational Therapy 04/17/20 Frank Brown MD [address] [place] [address] Physician Orthopaedic Hand Service 05/15/20 Chika Painter APRN-PRODUCTION SUPPORT MANAGER [address] [place] [address] [place] [address] SPACE SYSTEMS OPERATIONS SUPERINTENDENT Anesthesiology 01/15/21 Aileen Garcia DO [address] [place] [address] 32479 Fellow Electrophysiology 07/16/22 Tavares Thornton MD [address] [place] [address] Physician Cardiology 12/10/22 Bjorn Degroot MD [address] [place] [address] [place] [address] Fellow Gastroenterology 08/12/23 Eleni Manrique MD [address] [place] [address] [place] [address] Physician Cardiology 10/14/23 Compliance Investigator Relationship Specialty Start Date End Date Kena Monae MD [address] [place] [address] 25757 PCP - General Internal Medicine 12/21/22 Jarett Phelan DO [address] [place] [address] [place] [address] Physician Orthopaedic Trauma 04/17/20 Hali Holder OTR/L [address] [place] [address] 71291 Occupational Therapist Occupational Therapy 04/17/20 Frank Brown MD [address] [place] [address] Physician Orthopaedic Hand Service 05/15/20 Chika Painter APRN-PRODUCTION SUPPORT MANAGER [address] [place] [address] [place] [address] SPACE SYSTEMS OPERATIONS SUPERINTENDENT Anesthesiology 01/15/21 Aileen Garcia DO [address] [place] [address] 39299 Fellow Electrophysiology 07/16/22 Tavares Thornton MD [address] [place] [address] Physician Cardiology 12/10/22 Bjorn Degroot MD [address] [place] [address] [place] [address] Fellow Gastroenterology 08/12/23 Eleni Manrique MD [address] [place] [address] [place] [address] Physician Cardiology 10/14/23 Compliance Investigator Relationship Specialty Start Date End Date Kena Monae MD [address] [place] [address] 32389 PCP - General Internal Medicine 12/21/22 Jarett Phelan DO [address] [place] [address] [place] [address] Physician Orthopaedic Trauma 04/17/20 Hali Holder OTR/L [address] [place] [address] 07518 Occupational Therapist Occupational Therapy 04/17/20 Frank Brown MD [address] [place] [address] Physician Orthopaedic Hand Service 05/15/20 Chika Painter APRN-PRODUCTION SUPPORT MANAGER [address] [place] [address] [place] [address] SPACE SYSTEMS OPERATIONS SUPERINTENDENT Anesthesiology 01/15/21 Aileen Garcia DO [address] [place] [address] 92957 Fellow Electrophysiology 07/16/22 Tavares Thornton MD [address] [place] [address] Physician Cardiology 12/10/22 Bjorn Degroot MD [address] [place] [address] [place] [address] Fellow Gastroenterology 08/12/23 Eleni Manrique MD [address] [place] [address] [place] [address] Physician Cardiology 10/14/23 Compliance Investigator Relationship Specialty Start Date End Date Kena Monae MD [address] [place] [address] 72401 PCP - General Internal Medicine 12/21/22 Jarett Phelan DO [address] [place] [address] [place] [address] Physician Orthopaedic Trauma 04/17/20 Hali Holder OTR/L [address] [place] [address] 18171 Occupational Therapist Occupational Therapy 04/17/20 Frank Brown MD [address] [place] [address] Physician Orthopaedic Hand Service 05/15/20 Chika Painter, CHEMISTRY INTERN-PRODUCTION SUPPORT MANAGER [address] [place] [address] [place] [address] SPACE SYSTEMS OPERATIONS SUPERINTENDENT Anesthesiology 01/15/21 Aileen Garcia DO [address] [place] [address] 09837 Fellow Electrophysiology 07/16/22 Tavares Thornton MD [address] [place] [address] Physician Cardiology 12/10/22 Bjorn Degroot MD [address] [place] [address] [place] [address] Fellow Gastroenterology 08/12/23 Eleni Manrique MD [address] [place] [address] [place] [address] Physician Cardiology 10/14/23 Compliance Investigator Relationship Specialty Start Date End Date Kena Monae MD [address] [place] [address] 25169 PCP - General Internal Medicine 12/21/22 Jarett Phelan DO [address] [place] [address] [place] [address] Physician Orthopaedic Trauma 04/17/20 Hali Holder, OTR/L [address] [place] [address] 85874 Occupational Therapist Occupational Therapy 04/17/20 Frank Brown MD [address] [place] [address] Physician Orthopaedic Hand Service 05/15/20 Chika Painter APRN-PRODUCTION SUPPORT MANAGER [address] [place] [address] [place] [address] SPACE SYSTEMS OPERATIONS SUPERINTENDENT Anesthesiology 01/15/21 Aileen Garcia DO [address] [place] [address] 60021 Fellow Electrophysiology 07/16/22 Tavares Thornton MD [address] [place] [address] Physician Cardiology 12/10/22 Bjorn Degroot MD [address] [place] [address] [place] [address] Fellow Gastroenterology 08/12/23 Eleni Manrique MD [address] [place] [address] [place] [address] Physician Cardiology 10/14/23 Compliance Investigator Relationship Specialty Start Date End Date Kena Monae MD [address] [place] [address] 63886 PCP - General Internal Medicine 12/21/22 Jarett Phelan DO [address] [place] [address] [place] [address] Physician Orthopaedic Trauma 04/17/20 Hali Holder, OTR/L [address] [place] [address] 63915 Occupational Therapist Occupational Therapy 04/17/20 Frank Brown MD [address] [place] [address] Physician Orthopaedic Hand Service 05/15/20 Chika Painter APRN-PRODUCTION SUPPORT MANAGER [address] [place] [address] [place] [address] SPACE SYSTEMS OPERATIONS SUPERINTENDENT Anesthesiology 01/15/21 Aileen Garcia DO [address] [place] [address] 06230 Fellow Electrophysiology 07/16/22 Tavares Thornton MD [address] [place] [address] Physician Cardiology 12/10/22 Bjorn Degroot MD [address] [place] [address] [place] [address] Fellow Gastroenterology 08/12/23 Eleni Manrique MD [address] [place] [address] [place] [address] Physician Cardiology 10/14/23 Frandy Bonilla MD [address] [place] [address] [place] [address] Fellow Gastroenterology 02/17/24 Compliance Investigator Relationship Specialty Start Date End Date Kena Monae MD [address] [place], [place] [id number] PCP - General Internal Medicine 12/21/22 Jarett Phelan DO [address] [place] [address] [address] [place] [id number] Physician Orthopaedic Trauma 04/17/20 Hali Holder, OTR/L [address] [place] [address] 55187 Occupational Therapist Occupational Therapy 04/17/20 Frank Brown MD [address] [place] [address] Physician Orthopaedic Hand Service 05/15/20 Chika Painter, CHEMISTRY INTERN-PRODUCTION SUPPORT MANAGER [address] [place] [address] [place] [address] SPACE SYSTEMS OPERATIONS SUPERINTENDENT Anesthesiology 01/15/21 Aileen Garcia DO [address] [place] [address] 89475 Fellow Electrophysiology 07/16/22 Tavares Thornton MD [address] [place] [address] Physician Cardiology 12/10/22 Bjorn Degroot MD [address] [place] [address] [place] [address] Fellow Gastroenterology 08/12/23 Eleni Manrique MD [address] [place] [address] [place] [address] Physician Cardiology 10/14/23 Frandy Bonilla MD [address] [place] [address] [place] [address] Fellow Gastroenterology 02/17/24 Compliance Investigator Relationship Specialty Start Date End Date Kena Monae MD [address] [place] [address] PCP - General Internal Medicine 12/21/22 Jarett Phelan DO [address] [place] [address] [place] [address] Physician Orthopaedic Trauma 04/17/20 Hali Holder OTR/L [address] [place] [address] 39472 Occupational Therapist Occupational Therapy 04/17/20 Frank Brown MD [address] [place] [phone] Physician Orthopaedic Hand Service 05/15/20 Chika Painter, CHEMISTRY INTERN-PRODUCTION SUPPORT MANAGER [address] [place] [address] [place] [address] SPACE SYSTEMS OPERATIONS SUPERINTENDENT Anesthesiology 01/15/21 Aileen Garcia DO [address] [place] [address] 84501 Fellow Electrophysiology 07/16/22 Tavares Thornton MD [address] [place] [phone] Physician Cardiology 12/10/22 Bjorn Degroot MD [address] [place] [address] [place] [address] Fellow Gastroenterology 08/12/23 Eleni Manrique MD [address] [place] [address] [place] [address] Physician Cardiology 10/14/23 Frandy Bonilla MD [address] [place] [address] [place] [address] Fellow Gastroenterology 02/17/24 Compliance Investigator Relationship Specialty Start Date End Date Kena Monae MD [address] [place] [address] 18336 PCP - General Internal Medicine 12/21/22 Jarett Phelan DO [address] [place] [address] [place] [address] Physician Orthopaedic Trauma 04/17/20 Hali Holder, OTR/L [address] [place] [address] 95071 Occupational Therapist Occupational Therapy 04/17/20 Frank Brown MD [address] [place] [phone] Physician Orthopaedic Hand Service 05/15/20 Chika Painter, CHEMISTRY INTERN-PRODUCTION SUPPORT MANAGER [address] [place] [address] [place] [address] SPACE SYSTEMS OPERATIONS SUPERINTENDENT Anesthesiology 01/15/21 Aileen Garcia DO [address] [place] [address] 84070 Fellow Electrophysiology 07/16/22 Tavares Thornton MD [address] [place] [phone] Physician Cardiology 12/10/22 Bjorn Degroot MD [address] [place] [address] [place] [address] Fellow Gastroenterology 08/12/23 Eleni Manrique MD [address] [place] [address] [place] [address] Physician Cardiology 10/14/23 Frandy Bonilla MD [address] [place] [address] [place] [address] Fellow Gastroenterology 02/17/24 Compliance Investigator Relationship Specialty Start Date End Date Kena Monae MD [address] [place] [address] 26204 PCP - General Internal Medicine 12/21/22 Jarett Phelan DO [address] [place] [address] [place] [address] Physician Orthopaedic Trauma 04/17/20 Hali Holder OTR/L [address] [place] [address] 15999 Occupational Therapist Occupational Therapy 04/17/20 Frank Brown MD [address] [place] [phone] Physician Orthopaedic Hand Service 05/15/20 Chika Painter, CHEMISTRY INTERN-PRODUCTION SUPPORT MANAGER [address] [place] [address] [place] [address] SPACE SYSTEMS OPERATIONS SUPERINTENDENT Anesthesiology 01/15/21 Aileen Garcia DO [address] [place] [address] 25943 Fellow Electrophysiology 07/16/22 Tavares Thornton MD [address] [place] [phone] Physician Cardiology 12/10/22 Bjorn Degroot MD [address] [place] [address] [place] [address] Fellow Gastroenterology 08/12/23 Eleni Manrique MD [address] [place] [address] [place] [address] Physician Cardiology 10/14/23 Frandy Bonilla MD [address] [place] [address] [place] [address] Fellow Gastroenterology 02/17/24 Compliance Investigator Relationship Specialty Start Date End Date Kena Monae MD [address] [place] [address] [phone] PCP - General Internal Medicine 12/21/22 Jarett Phelan DO [address] [place] [address] [place] [address] Physician Orthopaedic Trauma 04/17/20 Hali Holder, OTR/L [address] [place] [address] 77232 Occupational Therapist Occupational Therapy 04/17/20 Frank Brown MD [address] [place] [address] Physician Orthopaedic Hand Service 05/15/20 Chika Painter CHEMISTRY INTERN-PRODUCTION SUPPORT MANAGER [address] [place] [address] [place] [address] SPACE SYSTEMS OPERATIONS SUPERINTENDENT Anesthesiology 01/15/21 Aileen Garcia DO [address] [place] [address] 31307 Fellow Electrophysiology 07/16/22 Tavares Thornton MD [address] [place] [address] Physician Cardiology 12/10/22 Bjorn Degroot MD [address] [place] [address] [address] [place] [id number] Fellow Gastroenterology 08/12/23 Eleni Manrique MD [address] [place] [address] [address] [place] [id number] Physician Cardiology 10/14/23 Frandy Bonilla MD [address] [place] [address] [address] [place] [id number] Fellow Gastroenterology 02/17/24 Cat Wang CHEMISTRY INTERN-PRODUCTION SUPPORT MANAGER [address] [place], [place] [id number] SPACE SYSTEMS OPERATIONS SUPERINTENDENT Urology 03/16/24 Compliance Investigator Relationship Specialty Start Date End Date Kena Monae MD [address] [place] [address] 48140 PCP - General Internal Medicine 12/21/22 Jarett Phelan DO [address] [place] [address] [place] [address] Physician Orthopaedic Trauma 04/17/20 Hali Holder, OTR/L [address] [place] [address] 78912 Occupational Therapist Occupational Therapy 04/17/20 Frank Brown MD [address] [place] [address] Physician Orthopaedic Hand Service 05/15/20 Chika Painter APRN-PRODUCTION SUPPORT MANAGER [address] [place] [address] [place] [address] SPACE SYSTEMS OPERATIONS SUPERINTENDENT Anesthesiology 01/15/21 Aileen Garcia DO [address] [place] [address] 88924 Fellow Electrophysiology 07/16/22 Tavares Thornton MD [address] [place] [address] Physician Cardiology 12/10/22 Bjorn Degroot MD [address] [place] [address] [place] [address] Fellow Gastroenterology 08/12/23 Eleni Manrique MD [address] [place] [address] [place] Physician Cardiology 10/14/23 Frandy Bonilla MD [address] [place] [address] [place] [address] Fellow Gastroenterology 02/17/24 Cat Wang, CHEMISTRY INTERN-PRODUCTION SUPPORT MANAGER [address] [place] [address] 13385 SPACE SYSTEMS OPERATIONS SUPERINTENDENT Urology 03/16/24 Compliance Investigator Relationship Specialty Start Date End Date Kena Monae MD [address] [place] [address] 94297 PCP - General Internal Medicine 12/21/22 Jarett Phelan DO [address] [place] [address] [place] [address] Physician Orthopaedic Trauma 04/17/20 Hali Holder OTR/L [address] [place] [address] 11225 Occupational Therapist Occupational Therapy 04/17/20 Frank Brown MD [address] [place] [address] Physician Orthopaedic Hand Service 05/15/20 Chika Painter CHEMISTRY INTERN-PRODUCTION SUPPORT MANAGER [address] [place] [address] [place] [address] SPACE SYSTEMS OPERATIONS SUPERINTENDENT Anesthesiology 01/15/21 Aileen Garcia DO [address] [place] [address] 23719 Fellow Electrophysiology 07/16/22 Tavares Thornton MD [address] [place] [address] Physician Cardiology 12/10/22 Bjorn Degroot MD [address] [place] [address] [place] [address] Fellow Gastroenterology 08/12/23 Eleni Manrique MD [address] [place] [address] [place] [address] Physician Cardiology 10/14/23 Frandy Bonilla MD [address] [place] [address] [place] [address] Fellow Gastroenterology 02/17/24 Cat Wang CHEMISTRY INTERN-PRODUCTION SUPPORT MANAGER [address] [place] [address] [phone] SPACE SYSTEMS OPERATIONS SUPERINTENDENT Urology 03/16/24 Compliance Investigator Relationship Specialty Start Date End Date Kena Monae MD [address] [place] [address] [id number] PCP - General Internal Medicine 12/21/22 Jarett Phelan DO [address] [place] [address] [place] [address] Physician Orthopaedic Trauma 04/17/20 Hali Holder, TAYLORR/L [address] [place] [address] 58612 Occupational Therapist Occupational Therapy 04/17/20 Frank Brown MD [address] [place] [phone] Physician Orthopaedic Hand Service 05/15/20 Chika Painter CHEMISTRY INTERN-PRODUCTION SUPPORT MANAGER [address] [place] [address] [place] [address] SPACE SYSTEMS OPERATIONS SUPERINTENDENT Anesthesiology 01/15/21 Aileen Garcia DO [address] [place] [address] 45047 Fellow Electrophysiology 07/16/22 Tavares Thornton MD [address] [place] [address] Physician Cardiology 12/10/22 Bjorn Degroot MD [address] [place] [address] [place] [address] Fellow Gastroenterology 08/12/23 Eleni Manrique MD [address] [place] [address] [place] [address] Physician Cardiology 10/14/23 Frandy Bonilla MD [address] [place] [address] [place] [address] Fellow Gastroenterology 02/17/24 Cat Wang, CHEMISTRY INTERN-PRODUCTION SUPPORT MANAGER [address] [place] [address] SPACE SYSTEMS OPERATIONS SUPERINTENDENT Urology 03/16/24 Compliance Investigator Relationship Specialty Start Date End Date Kena Monae MD [address] [place] [address] 01874 PCP - General Internal Medicine 12/21/22 Jarett Phelan DO [address] [place] [address] [place] [address] Physician Orthopaedic Trauma 04/17/20 Hali Holder, OTR/L [address] [place] [address] 70135 Occupational Therapist Occupational Therapy 04/17/20 Frank Brown MD [address] [place] [address] Physician Orthopaedic Hand Service 05/15/20 Chika Painter CHEMISTRY INTERN-PRODUCTION SUPPORT MANAGER [address] [place] [address] [place] [address] SPACE SYSTEMS OPERATIONS SUPERINTENDENT Anesthesiology 01/15/21 Aileen Garcia DO [address] [place] [address] 98834 Fellow Electrophysiology 07/16/22 Tavares Thornton MD [address] [place] [phone] Physician Cardiology 12/10/22 Bjorn Degroot MD [address] [place] [address] [address] [place] [id number] Fellow Gastroenterology 08/12/23 Eleni Manrique MD [address] [place] [address] [address] [place] [id number] Physician Cardiology 10/14/23 Frandy Bonilla MD [address] [place] [address] [place] [address] Fellow Gastroenterology 02/17/24 Cat Wang, CHEMISTRY INTERN-PRODUCTION SUPPORT MANAGER [address] [place], [place] [id number] SPACE SYSTEMS OPERATIONS SUPERINTENDENT Urology 03/16/24 Compliance Investigator Relationship Specialty Start Date End Date Kena Monae MD [address] [place] [address] 77046 PCP - General Internal Medicine 12/21/22 Jarett Phelan DO [address] [place] [address] [place] [address] Physician Orthopaedic Trauma 04/17/20 Hali Holder, OTR/L [address] [place] [address] [phone] Occupational Therapist Occupational Therapy 04/17/20 Frank Brown MD [address] [place] [address] Physician Orthopaedic Hand Service 05/15/20 Chika Painter, CHEMISTRY INTERN-PRODUCTION SUPPORT MANAGER [address] [place] [address] [place] [address] SPACE SYSTEMS OPERATIONS SUPERINTENDENT Anesthesiology 01/15/21 Aileen Garcia DO [address] [place] [address] 78857 Fellow Electrophysiology 07/16/22 Tavares Thornton MD [address] [place] [address] Physician Cardiology 12/10/22 Bjorn Degroot MD [address] [place] [address] [place] [address] Fellow Gastroenterology 08/12/23 Eleni Manrique MD [address] [place] [address] [place] Physician Cardiology 10/14/23 Frandy Bonilla MD [address] [place] [address] [place] [address] Fellow Gastroenterology 02/17/24 Cat Wang, CHEMISTRY INTERN-PRODUCTION SUPPORT MANAGER [address] [place] [address] 91057 SPACE SYSTEMS OPERATIONS SUPERINTENDENT Urology 03/16/24 Compliance Investigator Relationship Specialty Start Date End Date Kena Monae MD [address] [place], [place] [id number] PCP - General Internal Medicine 12/21/22 Jarett Phelan DO [address] [place] [address] [place] [address] Physician Orthopaedic Trauma 04/17/20 Hali Holder, OTR/L [address] [place] [address] 98655 Occupational Therapist Occupational Therapy 04/17/20 Frank Brown MD [address] [place] [address] Physician Orthopaedic Hand Service 05/15/20 Chika Painter, CHEMISTRY INTERN-PRODUCTION SUPPORT MANAGER [address] [place] [address] [place] [address] SPACE SYSTEMS OPERATIONS SUPERINTENDENT Anesthesiology 01/15/21 Aileen Garcia DO [address] [place], [place] [id number] Fellow Electrophysiology 07/16/22 Tavares Thornton MD [address] [place] [address] Physician Cardiology 12/10/22 Bjorn Degroot MD [address] [place] [address] [place] [address] Fellow Gastroenterology 08/12/23 Eleni Manrique MD [address] [place] [address] [place] [address] Physician Cardiology 10/14/23 Frandy Bonilla MD [address] [place] [address] [address] [place] [address] Fellow Gastroenterology 02/17/24 Cat Wang CHEMISTRY INTERN-PRODUCTION SUPPORT MANAGER [address] [place] [address] 96524 SPACE SYSTEMS OPERATIONS SUPERINTENDENT Urology 03/16/24 Compliance Investigator Relationship Specialty Start Date End Date Kena Monae MD [address] [place] [address] 34986 PCP - General Internal Medicine 12/21/22 Jarett Phelan DO [address] [place] [address] [place] [address] Physician Orthopaedic Trauma 04/17/20 Hali Holder, OTR/L [address] [place] [address] [phone] Occupational Therapist Occupational Therapy 04/17/20 Frank Brown MD [address] [place] [address] Physician Orthopaedic Hand Service 05/15/20 Chika Painter CHEMISTRY INTERN-PRODUCTION SUPPORT MANAGER [address] [place] [address] [place] [address] SPACE SYSTEMS OPERATIONS SUPERINTENDENT Anesthesiology 01/15/21 Aileen Garcia DO [address] [place] [address] 32521 Fellow Electrophysiology 07/16/22 Tavares Thornton MD [address] [place] [address] [phone] (Work) Physician Cardiology 12/10/22 Bjorn Degroot MD [address] [place] [address] [address] [place] [address] Fellow Gastroenterology 08/12/23 Eleni Manrique MD [address] [place] [address] [place] [address] Physician Cardiology 10/14/23 Frandy Bonilla MD [address] [place] [address] [place] [address] Fellow Gastroenterology 02/17/24 Cat Wang APRN-PRODUCTION SUPPORT MANAGER [address] [place] [address] 76634 SPACE SYSTEMS OPERATIONS SUPERINTENDENT Urology 03/16/24 Compliance Investigator Relationship Specialty Start Date End Date Kena Monae MD [address] [place] [address] 80364 PCP - General Internal Medicine 12/21/22 Jarett Phelan DO [address] [place] [address] [place] [address] Physician Orthopaedic Trauma 04/17/20 Hali Holder, OTR/L [address] [place] [address] 17569 Occupational Therapist Occupational Therapy 04/17/20 Frank Brown MD [address] [place] [phone] Physician Orthopaedic Hand Service 05/15/20 Chika Painter CHEMISTRY INTERN-PRODUCTION SUPPORT MANAGER [address] [place] [address] [place] [address] SPACE SYSTEMS OPERATIONS SUPERINTENDENT Anesthesiology 01/15/21 Aileen Garcia DO [address] [place] [address] 52207 Fellow Electrophysiology 07/16/22 Tavares Thornton MD [address] [place] [phone] Physician Cardiology 12/10/22 Bjorn Degroot MD [address] [place] [address] [place] [address] Fellow Gastroenterology 08/12/23 Eleni Manrique MD [address] [place] [address] [place] [address] Physician Cardiology 10/14/23 Frandy Bonilla MD [address] [place] [address] [address] [place] [id number] Fellow Gastroenterology 02/17/24 Cat Wang, CHEMISTRY INTERN-[facility] [address] [place], [place] [id number] SPACE SYSTEMS OPERATIONS SUPERINTENDENT Urology 03/16/24 Compliance Investigator Relationship Specialty Start Date End Date Kena Monae MD [address] [place], [place] [id number] PCP - General Internal Medicine 12/21/22 Jarett Phelan DO [address] [place] [address] [place] [address] Physician Orthopaedic Trauma 04/17/20 Hali Holder, OTR/L [address] [place] [address] 96134 Occupational Therapist Occupational Therapy 04/17/20 Frank Brown MD [address] [place] [address] Physician Orthopaedic Hand Service 05/15/20 Chika Painter CHEMISTRY INTERN-PRODUCTION SUPPORT MANAGER [address] [place] [address] [place] [address] SPACE SYSTEMS OPERATIONS SUPERINTENDENT Anesthesiology 01/15/21 Aileen Garcia DO [address] [place] [address] 39796 Fellow Electrophysiology 07/16/22 Tavares Thornton MD [address] [place] [address] Physician Cardiology 12/10/22 Bjorn Degroot MD [address] [place] [address] [address] [place] [id number] Fellow Gastroenterology 08/12/23 Eleni Manrique MD [address] [place] [address] [address] [place] [id number] Physician Cardiology 10/14/23 rFandy Bonilla MD [address] [place] [address] [address] [place] [id number] Fellow Gastroenterology 02/17/24 Cat Wang CHEMISTRY INTERN-PRODUCTION SUPPORT MANAGER [address] [place], [place] [id number] SPACE SYSTEMS OPERATIONS SUPERINTENDENT Urology 03/16/24 Compliance Investigator Relationship Specialty Start Date End Date Kena Monae MD [address] [place] [address] 97782 PCP - General Internal Medicine 12/21/22 Jarett Phelan DO [address] [place] [address] [place] [address] Physician Orthopaedic Trauma 04/17/20 Hali Holder, OTR/L [address] [place] [address] [phone] Occupational Therapist Occupational Therapy 04/17/20 Frank Brown MD [address] [place] [address] Physician Orthopaedic Hand Service 05/15/20 Chika Painter APRN-PRODUCTION SUPPORT MANAGER [address] [place] [address] [place] [address] SPACE SYSTEMS OPERATIONS SUPERINTENDENT Anesthesiology 01/15/21 Aileen Garcia DO [address] [place] [address] Fellow Electrophysiology 07/16/22 Tavares Thornton MD [address] [place] [address] Physician Cardiology 12/10/22 Bjorn Degroot MD [address] [place] [address] [place] [address] Fellow Gastroenterology 08/12/23 Eleni Manrique MD [address] [place] [address] [place] [address] Physician Cardiology 10/14/23 Frandy Bonilla MD [address] [place] [address] [place] [address] Fellow Gastroenterology 02/17/24 Cat Wang, CHEMISTRY INTERN-PRODUCTION SUPPORT MANAGER [address] [place] [address] 65415 SPACE SYSTEMS OPERATIONS SUPERINTENDENT Urology 03/16/24 Compliance Investigator Relationship Specialty Start Date End Date Kena Monae MD [address] [place] [address] 41919 PCP - General Internal Medicine 12/21/22 Jarett Phelan DO [address] [place] [address] [place] [address] Physician Orthopaedic Trauma 04/17/20 Hali Holder, OTR/L [address] [place] [address] 38911 Occupational Therapist Occupational Therapy 04/17/20 Frank Brown MD [address] [place] [address] Physician Orthopaedic Hand Service 05/15/20 Chika Painter CHEMISTRY INTERN-PRODUCTION SUPPORT MANAGER [address] [place] [address] [place] [address] SPACE SYSTEMS OPERATIONS SUPERINTENDENT Anesthesiology 01/15/21 Aileen Garcia DO [address] [place] [address] 96130 Fellow Electrophysiology 07/16/22 Tavares Thornton MD [address] [place] [address] Physician Cardiology 12/10/22 Bjorn Degroot MD [address] [place] [address] [place] [address] Fellow Gastroenterology 08/12/23 Eleni Manrique MD [address] [place] [address] [place] [address] Physician Cardiology 10/14/23 Frandy Bonilla MD [address] [place] [address] [place] [address] Fellow Gastroenterology 02/17/24 Cat Wang CHEMISTRY INTERN-PRODUCTION SUPPORT MANAGER [address] [place] [address] 56325 SPACE SYSTEMS OPERATIONS SUPERINTENDENT Urology 03/16/24 Compliance Investigator Relationship Specialty Start Date End Date Kena Monae MD [address] [place] [address] 48123 PCP - General Internal Medicine 12/21/22 Jarett Phelan DO [address] [place] [address] [place] [address] Physician Orthopaedic Trauma 04/17/20 Hali Holder, OTR/L [address] [place] [address] 08055 Occupational Therapist Occupational Therapy 04/17/20 Frank Brown MD [address] [place] [phone] Physician Orthopaedic Hand Service 05/15/20 Chika Painter CHEMISTRY INTERN-PRODUCTION SUPPORT MANAGER [address] [place] [address] [place] [address] SPACE SYSTEMS OPERATIONS SUPERINTENDENT Anesthesiology 01/15/21 Aileen Garcia DO [address] [place] [address] 75114 Fellow Electrophysiology 07/16/22 Tavares Thornton MD [address] [place] [phone] Physician Cardiology 12/10/22 Bjorn Degroot MD [address] [place] [address] [place] [address] Fellow Gastroenterology 08/12/23 Eleni Manrique MD [address] [place] [address] [place] [address] Physician Cardiology 10/14/23 Frandy Bonilla MD [address] [place] [address] [place] [address] Fellow Gastroenterology 02/17/24 Cat Wang, CHEMISTRY INTERN-[facility] [address] [place] [address] SPACE SYSTEMS OPERATIONS SUPERINTENDENT Urology 03/16/24 Estela Tate MD [address] [place] [address] 73447 Physician Urology 05/18/24 Compliance Investigator Relationship Specialty Start Date End Date Kena Monae MD [address] [place], [place] [phone] PCP - General Internal Medicine 12/21/22 Jarett Phelan DO [address] [place] [address] [place] [address] Physician Orthopaedic Trauma 04/17/20 Hali Holder, TAYLORR/L [address] [place] [address] 37270 Occupational Therapist Occupational Therapy 04/17/20 Frank Brown MD [address] [place] [address] Physician Orthopaedic Hand Service 05/15/20 Chika Painter CHEMISTRY INTERN-PRODUCTION SUPPORT MANAGER [address] [place] [address] [place] [address] SPACE SYSTEMS OPERATIONS SUPERINTENDENT Anesthesiology 01/15/21 Aileen Garcia DO [address] [place], [place] [phone] Fellow Electrophysiology 07/16/22 Tavares Thornton MD [address] [place] [address] Physician Cardiology 12/10/22 Bjorn Degroot MD [address] [place] [address] [address] [place] [id number] Fellow Gastroenterology 08/12/23 Eleni Manrique MD [address] [place] [address] [place] [address] Physician Cardiology 10/14/23 Frandy Bonilla MD [address] [place] [address] [address] [place] [phone] Fellow Gastroenterology 02/17/24 Cat Wang, CHEMISTRY INTERN-PRODUCTION SUPPORT MANAGER [address] [place], [place] [id number] SPACE SYSTEMS OPERATIONS SUPERINTENDENT Urology 03/16/24 Estela Tate MD [address] [place] [address] 91840 Physician Urology 05/18/24 Compliance Investigator Relationship Specialty Start Date End Date Kena Monae MD [address] [place] [address] 67910 PCP - General Internal Medicine 12/21/22 Jarett Phelan DO [address] [place] [address] [place] [address] Physician Orthopaedic Trauma 04/17/20 Hali Holder, OTR/L [address] [place] [address] 93652 Occupational Therapist Occupational Therapy 04/17/20 Frank Brown MD [address] [place] [address] Physician Orthopaedic Hand Service 05/15/20 Chika Painter, CHEMISTRY INTERN-PRODUCTION SUPPORT MANAGER [address] [place] [address] [address] [place] [phone] SPACE SYSTEMS OPERATIONS SUPERINTENDENT Anesthesiology 01/15/21 Aileen Garcia DO [address] [place], [place] [phone] Fellow Electrophysiology 07/16/22 Tavares Thornton MD [address] [place] [address] Physician Cardiology 12/10/22 Bjorn Degroot MD [address] [place] [address] [place] [address] Fellow Gastroenterology 08/12/23 Eleni Manrique MD [address] [place] [address] [place] [address] Physician Cardiology 10/14/23 Frandy Bonilla MD [address] [place] [address] [place] [address] Fellow Gastroenterology 02/17/24 Cat Wang CHEMISTRY INTERN-PRODUCTION SUPPORT MANAGER [address] [place] [address] 66375 SPACE SYSTEMS OPERATIONS SUPERINTENDENT Urology 03/16/24 Estela Tate MD [address] [place] [address] 46954 Physician Urology 05/18/24 Dereje Clark CHEMISTRY INTERN-PRODUCTION SUPPORT MANAGER [address] [place] [address] 26822 SPACE SYSTEMS OPERATIONS SUPERINTENDENT General Surgery 08/10/24 Quique Davies MD [address] [place] [address] Physician Pulmonary Medicine 09/14/24 Compliance Investigator Relationship Specialty Start Date End Date Kena Monae MD [address] [place] [address] 03534 PCP - General Internal Medicine 12/21/22 Jarett Phelan DO [address] [place] [address] [place] [address] Physician Orthopaedic Trauma 04/17/20 Hali Holder, OTR/L [address] [place] [address] 56536 Occupational Therapist Occupational Therapy 04/17/20 Frank Brown MD [address] [place] [phone] Physician Orthopaedic Hand Service 05/15/20 Chika Painter, CHEMISTRY INTERN-PRODUCTION SUPPORT MANAGER [address] [place] [address] [place] [address] SPACE SYSTEMS OPERATIONS SUPERINTENDENT Anesthesiology 01/15/21 Aileen Garcia DO [address] [place] [address] 10315 Fellow Electrophysiology 07/16/22 Tavares Thornton MD [address] [place] [phone] Physician Cardiology 12/10/22 Bjorn Degroot MD [address] [place] [address] [place] [address] Fellow Gastroenterology 08/12/23 Eleni Manrique MD [address] [place] [address] [place] [address] Physician Cardiology 10/14/23 Frandy Bonilla MD [address] [place] [address] [address] [place] [id number] Fellow Gastroenterology 02/17/24 Cat Wang, CHEMISTRY INTERN-PRODUCTION SUPPORT MANAGER [address] [place] [address] SPACE SYSTEMS OPERATIONS SUPERINTENDENT Urology 03/16/24 Estela Tate MD [address] [place] [address] 85230 Physician Urology 05/18/24 Dereje Clark, CHEMISTRY INTERN-PRODUCTION SUPPORT MANAGER [address] [place] [address] 48351 SPACE SYSTEMS OPERATIONS SUPERINTENDENT General Surgery 08/10/24 Quique Davies MD [address] [place] [address] 74635 Physician Pulmonary Medicine 09/14/24 Compliance Investigator Relationship Specialty Start Date End Date Kena Monae MD [address] [place] [address] 29086 PCP - General Internal Medicine 12/21/22 Jarett Phelan DO [address] [place] [address] [place] [address] Physician Orthopaedic Trauma 04/17/20 Hali Holder OTR/L [address] [place] [address] 59774 Occupational Therapist Occupational Therapy 04/17/20 Frank Brown MD [address] [place] [address] Physician Orthopaedic Hand Service 05/15/20 Chika Painter, CHEMISTRY INTERN-PRODUCTION SUPPORT MANAGER [address] [place] [address] [place] [address] SPACE SYSTEMS OPERATIONS SUPERINTENDENT Anesthesiology 01/15/21 Aileen Garcia DO [address] [place] [address] 12458 Fellow Electrophysiology 07/16/22 Tavares Thornton MD [address] [place] [address] Physician Cardiology 12/10/22 Bjorn Degroot MD [address] [place] [address] [place] [address] Fellow Gastroenterology 08/12/23 Eleni Manrique MD [address] [place] [address] [place] [address] Physician Cardiology 10/14/23 Frandy Bonilla MD [address] [place] [address] [place] [address] Fellow Gastroenterology 02/17/24 Cat Wang, CHEMISTRY INTERN-PRODUCTION SUPPORT MANAGER [address] [place] [address] 12320 SPACE SYSTEMS OPERATIONS SUPERINTENDENT Urology 03/16/24 Estela Tate MD [address] [place] [address] 41938 Physician Urology 05/18/24 Dereje Clark, CHEMISTRY INTERN-PRODUCTION SUPPORT MANAGER [address] [place] [address] 88449 SPACE SYSTEMS OPERATIONS SUPERINTENDENT General Surgery 08/10/24 Quique Davies MD [address] [place] [address] 20117 Physician Pulmonary Medicine 09/14/24 Compliance Investigator Relationship Specialty Start Date End Date Kena Monae MD [address] [place] [address] 33997 PCP - General Internal Medicine 12/21/22 Jarett Phelan DO [address] [place] [address] [place] [address] Physician Orthopaedic Trauma 04/17/20 Hali Holder, OTR/L [address] [place] [address] 73524 Occupational Therapist Occupational Therapy 04/17/20 Frank Brown MD [address] [place] [address] Physician Orthopaedic Hand Service 05/15/20 Chika Painter CHEMISTRY INTERN-PRODUCTION SUPPORT MANAGER [address] [place] [address] [place] [address] SPACE SYSTEMS OPERATIONS SUPERINTENDENT Anesthesiology 01/15/21 Aileen Garcia DO [address] [place] [address] 32814 Fellow Electrophysiology 07/16/22 Tavares Thornton MD [address] [place] [address] Physician Cardiology 12/10/22 Bjorn Degroot MD [address] [place] [address] [address] [place] [phone] Fellow Gastroenterology 08/12/23 Eleni Manrique MD [address] [place] [address] [place] [address] Physician Cardiology 10/14/23 Frandy Bonilla MD [address] [place] [address] [address] [place] [phone] Fellow Gastroenterology 02/17/24 Cat Wang, CHEMISTRY INTERN-PRODUCTION SUPPORT MANAGER [address] [place] [address] 96776 SPACE SYSTEMS OPERATIONS SUPERINTENDENT Urology 03/16/24 Estela Tate MD [address] [place] [address] 00361 Physician Urology 05/18/24 Dereje Clark CHEMISTRY INTERN-PRODUCTION SUPPORT MANAGER [address] [place] [address] 74685 SPACE SYSTEMS OPERATIONS SUPERINTENDENT General Surgery 08/10/24 Quique Davies MD [address] [place] [address] 51264 Physician Pulmonary Medicine 09/14/24 Compliance Investigator Relationship Specialty Start Date End Date Kena Monae MD [address] [place] [address] 40875 PCP - General Internal Medicine 12/21/22 Jarett Phelan DO [address] [place] [address] [place] [address] Physician Orthopaedic Trauma 04/17/20 Hali Holder, OTR/L [address] [place] [address] 31442 Occupational Therapist Occupational Therapy 04/17/20 Frank Brown MD [address] [place] [address] Physician Orthopaedic Hand Service 05/15/20 Chika Painter CHEMISTRY INTERN-PRODUCTION SUPPORT MANAGER [address] [place] [address] [place] [address] SPACE SYSTEMS OPERATIONS SUPERINTENDENT Anesthesiology 01/15/21 Aileen Garcia DO [address] [place] [address] 04493 Fellow Electrophysiology 07/16/22 Tavares Thornton MD [address] [place] [address] [phone] (Work) Physician Cardiology 12/10/22 Bjorn Degroot MD [address] [place] [address] [place] [address] Fellow Gastroenterology 08/12/23 Eleni Manrique MD [address] [place] [address] [place] [address] Physician Cardiology 10/14/23 Frandy Bonilla MD [address] [place] [address] [place] [address] Fellow Gastroenterology 02/17/24 Cat Wang APRN-PRODUCTION SUPPORT MANAGER [address] [place] [address] SPACE SYSTEMS OPERATIONS SUPERINTENDENT Urology 03/16/24 Estela Tate MD [address] [place] [address] Physician Urology 05/18/24 Dereje Clark APRN-PRODUCTION SUPPORT MANAGER [address] [place] [address] 69813 SPACE SYSTEMS OPERATIONS SUPERINTENDENT General Surgery 08/10/24 Quique Davies MD [address] [place] [id number] Physician Pulmonary Medicine 09/14/24 Compliance Investigator Relationship Specialty Start Date End Date Kena Monae MD [address] [place] [address] [id number] PCP - General Internal Medicine 12/21/22 Jarett Phelan DO [address] [place] [address] [place] [address] Physician Orthopaedic Trauma 04/17/20 Hali Holder, OTR/L [address] [place] [address] 04177 Occupational Therapist Occupational Therapy 04/17/20 Frank Brown MD [address] [place] [address] Physician Orthopaedic Hand Service 05/15/20 Chika Painter, CHEMISTRY INTERN-PRODUCTION SUPPORT MANAGER [address] [place] [address] [place] [address] SPACE SYSTEMS OPERATIONS SUPERINTENDENT Anesthesiology 01/15/21 Aileen Garcia DO [address] [place] [address] 59042 Fellow Electrophysiology 07/16/22 Tavares Thornton MD [address] [place] [address] Physician Cardiology 12/10/22 Bjorn Degroot MD [address] [place] [address] [place] [address] Fellow Gastroenterology 08/12/23 Eleni Manrique MD [address] [place] [address] [place] [address] Physician Cardiology 10/14/23 Frandy Bonilla MD [address] [place] [address] [place] [address] Fellow Gastroenterology 02/17/24 Cat Wang, CHEMISTRY INTERN-PRODUCTION SUPPORT MANAGER [address] [place] [address] 68847 SPACE SYSTEMS OPERATIONS SUPERINTENDENT Urology 03/16/24 Estela Tate MD [address] [place] [address] 33762 Physician Urology 05/18/24 Dereje Clark CHEMISTRY INTERN-PRODUCTION SUPPORT MANAGER [address] [place] [address] 12598 SPACE SYSTEMS OPERATIONS SUPERINTENDENT General Surgery 08/10/24 Quique Davies MD [address] [place] [address] 64159 Physician Pulmonary Medicine 09/14/24 Compliance Investigator Relationship Specialty Start Date End Date Kena Monae MD [address] [place] [address] 04693 PCP - General Internal Medicine 12/21/22 Jarett Phelan DO [address] [place] [address] [place] [address] Physician Orthopaedic Trauma 04/17/20 Hali Holder, OTR/L [address] [place] [address] 85352 Occupational Therapist Occupational Therapy 04/17/20 Frank Brown MD [address] [place] [phone] Physician Orthopaedic Hand Service 05/15/20 Chika Painter CHEMISTRY INTERN-PRODUCTION SUPPORT MANAGER [address] [place] [address] [place] [address] SPACE SYSTEMS OPERATIONS SUPERINTENDENT Anesthesiology 01/15/21 Aileen Garcia DO [address] [place] [address] 86278 Fellow Electrophysiology 07/16/22 Tavares Thornton MD [address] [place], [place] [id number] Physician Cardiology 12/10/22 Bjorn Degroot MD [address] [place] [address] [place] [address] Fellow Gastroenterology 08/12/23 Eleni Manrique MD [address] [place] [address] [place] [address] Physician Cardiology 10/14/23 Frandy Bonilla MD [address] [place] [address] [place] [address] Fellow Gastroenterology 02/17/24 Cat Wang APRN-PRODUCTION SUPPORT MANAGER [address] [place] [address] SPACE SYSTEMS OPERATIONS SUPERINTENDENT Urology 03/16/24 Estela Tate MD [address] [place] [address] Physician Urology 05/18/24 Dereje Clark APRN-PRODUCTION SUPPORT MANAGER [address] [place] [address] SPACE SYSTEMS OPERATIONS SUPERINTENDENT General Surgery 08/10/24 Quique Davies MD [address] [place] [address] 01403 Physician Pulmonary Medicine 09/14/24 Compliance Investigator Relationship Specialty Start Date End Date Kena Monae MD [address] [place] [address] 72585 PCP - General Internal Medicine 12/21/22 Jarett Phelan DO [address] [place] [address] [place] [address] Physician Orthopaedic Trauma 04/17/20 Hali Holder, OTR/L [address] [place] [address] 75853 Occupational Therapist Occupational Therapy 04/17/20 Frank Brown MD [address] [place] [address] Physician Orthopaedic Hand Service 05/15/20 Chika Painter, CHEMISTRY INTERN-PRODUCTION SUPPORT MANAGER [address] [place] [address] [place] [address] SPACE SYSTEMS OPERATIONS SUPERINTENDENT Anesthesiology 01/15/21 Aileen Garcia DO [address] [place] [address] 49892 Fellow Electrophysiology 07/16/22 Tavares Thornton MD [address] [place] [address] Physician Cardiology 12/10/22 Bjorn Degroot MD [address] [place] [address] [place] [address] Fellow Gastroenterology 08/12/23 Eleni Manrique MD [address] [place] [address] [place] [address] Physician Cardiology 10/14/23 Frandy Bonilla MD [address] [place] [address] [place] [address] Fellow Gastroenterology 02/17/24 Cat Wang, CHEMISTRY INTERN-PRODUCTION SUPPORT MANAGER [address] [place] [address] 62312 SPACE SYSTEMS OPERATIONS SUPERINTENDENT Urology 03/16/24 Estela Tate MD [address] [place] [address] 46471 Physician Urology 05/18/24 Dereje Clark, CHEMISTRY INTERN-PRODUCTION SUPPORT MANAGER [address] [place] [address] 05526 SPACE SYSTEMS OPERATIONS SUPERINTENDENT General Surgery 08/10/24 Quique Davies MD [address] [place] [address] 57548 Physician Pulmonary Medicine 09/14/24 Compliance Investigator Relationship Specialty Start Date End Date Kena Monae MD [address] [place] [address] 83968 PCP - General Internal Medicine 12/21/22 Jarett Phelan DO [address] [place] [address] [place] [address] Physician Orthopaedic Trauma 04/17/20 Hali Holder, OTR/L [address] [place] [address] 35069 Occupational Therapist Occupational Therapy 04/17/20 Frank Brown MD [address] [place] [phone] Physician Orthopaedic Hand Service 05/15/20 Chika Painter CHEMISTRY INTERN-PRODUCTION SUPPORT MANAGER [address] [place] [address] [place] [address] SPACE SYSTEMS OPERATIONS SUPERINTENDENT Anesthesiology 01/15/21 Aileen Garcia DO [address] [place] [address] Fellow Electrophysiology 07/16/22 Tavares Thornton MD [address] [place] [id number] Physician Cardiology 12/10/22 Bjorn Degroot MD [address] [place] [address] [place] [address] Fellow Gastroenterology 08/12/23 Eleni Manrique MD [address] [place] [address] [place] [address] Physician Cardiology 10/14/23 Frandy Bonilla MD [address] [place] [address] [place] [address] Fellow Gastroenterology 02/17/24 Cat Wang APRN-PRODUCTION SUPPORT MANAGER [address] [place] [address] SPACE SYSTEMS OPERATIONS SUPERINTENDENT Urology 03/16/24 Estela Tate MD [address] [place] [address] Physician Urology 05/18/24 Dereje Clark APRN-PRODUCTION SUPPORT MANAGER [address] [place] [address] 42653 SPACE SYSTEMS OPERATIONS SUPERINTENDENT General Surgery 08/10/24 Quique Davies MD [address] [place] [address] 36798 Physician Pulmonary Medicine 09/14/24 Compliance Investigator Relationship Specialty Start Date End Date Kena Monae MD [address] [place] [address] [phone] PCP - General Internal Medicine 12/21/22 Jarett Phelan DO [address] [place] [address] [place] [address] Physician Orthopaedic Trauma 04/17/20 Hali Holder, OTR/L [address] [place] [address] 59489 Occupational Therapist Occupational Therapy 04/17/20 Frank Brown MD [address] [place] [address] Physician Orthopaedic Hand Service 05/15/20 Chika Painter, CHEMISTRY INTERN-PRODUCTION SUPPORT MANAGER [address] [place] [address] [place] [address] SPACE SYSTEMS OPERATIONS SUPERINTENDENT Anesthesiology 01/15/21 Aileen Garcia DO [address] [place] [address] 15524 Fellow Electrophysiology 07/16/22 Tavares Thornton MD [address] [place] [address] Physician Cardiology 12/10/22 Bjorn Degroot MD [address] [place] [address] [place] [address] Fellow Gastroenterology 08/12/23 Eleni Manrique MD [address] [place] [address] [place] [address] Physician Cardiology 10/14/23 Frandy Bonilla MD [address] [place] [address] [place] [address] Fellow Gastroenterology 02/17/24 Cat Wang APRN-PRODUCTION SUPPORT MANAGER [address] [place] [address] 45669 SPACE SYSTEMS OPERATIONS SUPERINTENDENT Urology 03/16/24 Estela Tate MD [address] [place] [address] 76304 Physician Urology 05/18/24 Compliance Investigator Relationship Specialty Start Date End Date Kena Monae MD [address] [place] [address] PCP - General Internal Medicine 12/21/22 Jarett Phelan DO [address] [place] [address] [place] [address] Physician Orthopaedic Trauma 04/17/20 Hali Holder, OTR/L [address] [place] [address] 12099 Occupational Therapist Occupational Therapy 04/17/20 Frank Brown MD [address] [place] [phone] Physician Orthopaedic Hand Service 05/15/20 Chika Painter CHEMISTRY INTERN-PRODUCTION SUPPORT MANAGER [address] [place] [address] [place] [address] SPACE SYSTEMS OPERATIONS SUPERINTENDENT Anesthesiology 01/15/21 Aileen Garcia DO [address] [place] [address] 86238 Fellow Electrophysiology 07/16/22 Tavares Thornton MD [address] [place] [id number] Physician Cardiology 12/10/22 Bjorn Degroot MD [address] [place] [address] [place] [address] Fellow Gastroenterology 08/12/23 Eleni Manrique MD [address] [place] [address] [place] [address] Physician Cardiology 10/14/23 Frandy Bonilla MD [address] [place] [address] [place] [address] Fellow Gastroenterology 02/17/24 Cat Wang, CHEMISTRY INTERN-PRODUCTION SUPPORT MANAGER [address] [place] [address] SPACE SYSTEMS OPERATIONS SUPERINTENDENT Urology 03/16/24 Estela Tate MD [address] [place] [address] Physician Urology 05/18/24 Dereje Clark CHEMISTRY INTERN-PRODUCTION SUPPORT MANAGER [address] [place] [address] SPACE SYSTEMS OPERATIONS SUPERINTENDENT General Surgery 08/10/24 Quique Davies MD [address] [place] [address] 58342 Physician Pulmonary Medicine 09/14/24 Compliance Investigator Relationship Specialty Start Date End Date Kena Monae MD [address] [place], [place] [id number] PCP - General Internal Medicine 12/21/22 Jarett Phelan DO [address] [place] [address] [place] [address] Physician Orthopaedic Trauma 04/17/20 Hali Holder, OTR/L [address] [place] [address] 25940 Occupational Therapist Occupational Therapy 04/17/20 Frank Brown MD [address] [place] [address] Physician Orthopaedic Hand Service 05/15/20 Chika Painter APRN-PRODUCTION SUPPORT MANAGER [address] [place] [address] [place] [address] SPACE SYSTEMS OPERATIONS SUPERINTENDENT Anesthesiology 01/15/21 Aileen Garcia DO [address] [place] [address] 15769 Fellow Electrophysiology 07/16/22 Tavares Thornton MD [address] [place] [address] Physician Cardiology 12/10/22 Bjorn Degroot MD [address] [place] [address] [place] [address] Fellow Gastroenterology 08/12/23 Eleni Manrique MD [address] [place] [address] [place] [address] Physician Cardiology 10/14/23 Frandy Bonilla MD [address] [place] [address] [place] [address] Fellow Gastroenterology 02/17/24 Cat Wang CHEMISTRY INTERN-PRODUCTION SUPPORT MANAGER [address] [place] [address] SPACE SYSTEMS OPERATIONS SUPERINTENDENT Urology 03/16/24 Estela Tate MD [address] [place] [address] Physician Urology 05/18/24 Compliance Investigator Relationship Specialty Start Date End Date Kena Monae MD [address] [place], [place] [id number] PCP - General Internal Medicine 12/21/22 Jarett Phelan DO [address] [place] [address] [address] [place] [id number] Physician Orthopaedic Trauma 04/17/20 Hali Holder, OTR/L [address] [place] [address] 79684 Occupational Therapist Occupational Therapy 04/17/20 Frank Brown MD [address] [place] [phone] Physician Orthopaedic Hand Service 05/15/20 Chika Painter CHEMISTRY INTERN-PRODUCTION SUPPORT MANAGER [address] [place] [address] [place] [address] SPACE SYSTEMS OPERATIONS SUPERINTENDENT Anesthesiology 01/15/21 Aileen Garcia DO [address] [place] [address] 13220 Fellow Electrophysiology 07/16/22 Tavares Thornton MD [address] [place] [address] Physician Cardiology 12/10/22 Bjorn Degroot MD [address] [place] [address] [place] [address] Fellow Gastroenterology 08/12/23 Elein Manrique MD [address] [place] [address] [place] [address] Physician Cardiology 10/14/23 Frandy Bonilla MD [address] [place] [address] [place] [address] Fellow Gastroenterology 02/17/24 Cat Wang APRN-[facility] [address] [place] [address] 51265 SPACE SYSTEMS OPERATIONS SUPERINTENDENT Urology 03/16/24 Estela Tate MD [address] [place] [address] 14797 Physician Urology 05/18/24 Compliance Investigator Relationship Specialty Start Date End Date Kena Monae MD [address] [place] [address] 87411 PCP - General Internal Medicine 12/21/22 Jarett Phelan DO [address] [place] [address] [place] [address] Physician Orthopaedic Trauma 04/17/20 Hali Holder OTR/L [address] [place] [address] 04570 Occupational Therapist Occupational Therapy 04/17/20 Frank Brown MD [address] [place] [phone] Physician Orthopaedic Hand Service 05/15/20 Chika Painter CHEMISTRY INTERN-PRODUCTION SUPPORT MANAGER [address] [place] [address] [place] [address] SPACE SYSTEMS OPERATIONS SUPERINTENDENT Anesthesiology 01/15/21 Aileen Garcia DO [address] [place] [address] 74957 Fellow Electrophysiology 07/16/22 Tavares Thornton MD [address] [place], [place] [id number] Physician Cardiology 12/10/22 Bjorn Degroot MD [address] [place] [address] [place] [address] Fellow Gastroenterology 08/12/23 Eleni Manrique MD [address] [place] [address] [place] [address] Physician Cardiology 10/14/23 Frandy Bonilla MD [address] [place] [address] [place] [address] Fellow Gastroenterology 02/17/24 Cat Wang CHEMISTRY INTERN-PRODUCTION SUPPORT MANAGER [address] [place] [address] SPACE SYSTEMS OPERATIONS SUPERINTENDENT Urology 03/16/24 Estela Tate MD [address] [place] [address] 62096 Physician Urology 05/18/24 Compliance Investigator Relationship Specialty Start Date End Date Kena Monae MD [address] [place] [address] 78771 PCP - General Internal Medicine 12/21/22 Jarett Phelan DO [address] [place] [address] [place] [address] Physician Orthopaedic Trauma 04/17/20 Hali Holder, OTR/L [address] [place] [address] 22413 Occupational Therapist Occupational Therapy 04/17/20 Frank Brown MD [address] [place] [address] Physician Orthopaedic Hand Service 05/15/20 Chika Painter, CHEMISTRY INTERN-PRODUCTION SUPPORT MANAGER [address] [place] [address] [place] [address] SPACE SYSTEMS OPERATIONS SUPERINTENDENT Anesthesiology 01/15/21 Aileen Garcia DO [address] [place] [address] 90616 Fellow Electrophysiology 07/16/22 Tavares Thornton MD [address] [place] [address] Physician Cardiology 12/10/22 Bjorn Degroot MD [address] [place] [address] [place] [address] Fellow Gastroenterology 08/12/23 Eleni Manrique MD [address] [place] [address] [place] [address] Physician Cardiology 10/14/23 Frandy Bonilla MD [address] [place] [address] [place] [address] Fellow Gastroenterology 02/17/24 Cat Wang CHEMISTRY INTERN-PRODUCTION SUPPORT MANAGER [address] [place] [address] 66766 SPACE SYSTEMS OPERATIONS SUPERINTENDENT Urology 03/16/24 Estela Tate MD [address] [place] [address] 77624 Physician Urology 05/18/24 Compliance Investigator Relationship Specialty Start Date End Date Kena Monae MD [address] [place] [address] PCP - General Internal Medicine 12/21/22 Jarett Phelan DO [address] [place] [address] [place] [address] Physician Orthopaedic Trauma 04/17/20 Hali Holder, OTR/L [address] [place] [address] 08754 Occupational Therapist Occupational Therapy 04/17/20 Frank Brown MD [address] [place] [address] Physician Orthopaedic Hand Service 05/15/20 Chika Painter CHEMISTRY INTERN-PRODUCTION SUPPORT MANAGER [address] [place] [address] [place] [address] SPACE SYSTEMS OPERATIONS SUPERINTENDENT Anesthesiology 01/15/21 Aileen Garcia DO [address] [place] [address] 32264 Fellow Electrophysiology 07/16/22 Tavares Thornton MD [address] [place] [address] Physician Cardiology 12/10/22 Bjorn Degroot MD [address] [place] [address] [place] [address] Fellow Gastroenterology 08/12/23 Eleni Manrique MD [address] [place] [address] [place] [address] Physician Cardiology 10/14/23 Frandy Bonilla MD [address] [place] [address] [place] [address] Fellow Gastroenterology 02/17/24 Cat Wang APRN-PRODUCTION SUPPORT MANAGER [address] [place] [address] 53281 SPACE SYSTEMS OPERATIONS SUPERINTENDENT Urology 03/16/24 Estela Tate MD [address] [place] [address] 12064 Physician Urology 05/18/24 Dereje Clark APRN-PRODUCTION SUPPORT MANAGER [address] [place] [address] 73267 SPACE SYSTEMS OPERATIONS SUPERINTENDENT General Surgery 08/10/24 Compliance Investigator Relationship Specialty Start Date End Date Kena Monae MD [address] [place] [address] 05643 PCP - General Internal Medicine 12/21/22 Jarett Phelan DO [address] [place] [address] [place] [address] Physician Orthopaedic Trauma 04/17/20 Hali Holder, OTR/L [address] [place] [address] 25572 Occupational Therapist Occupational Therapy 04/17/20 Frank Brown MD [address] [place] [address] Physician Orthopaedic Hand Service 05/15/20 Chika Painter CHEMISTRY INTERN-PRODUCTION SUPPORT MANAGER [address] [place] [address] [place] [address] SPACE SYSTEMS OPERATIONS SUPERINTENDENT Anesthesiology 01/15/21 Aileen Garcia DO [address] [place] [address] 08792 Fellow Electrophysiology 07/16/22 Tavares Thornton MD [address] [place] [address] Physician Cardiology 12/10/22 Bjorn Degroot MD [address] [place] [address] [place] [address] Fellow Gastroenterology 08/12/23 Eleni Manrique MD [address] [place] [address] [place] [address] Physician Cardiology 10/14/23 Frandy Bonilla MD [address] [place] [address] [place] [address] Fellow Gastroenterology 02/17/24 Cat Wang, CHEMISTRY INTERN-PRODUCTION SUPPORT MANAGER [address] [place] [address] 70335 SPACE SYSTEMS OPERATIONS SUPERINTENDENT Urology 03/16/24 Estela Tate MD [address] [place] [address] 64348 Physician Urology 05/18/24 Dereje Clark CHEMISTRY INTERN-PRODUCTION SUPPORT MANAGER [address] [place] [address] 36953 SPACE SYSTEMS OPERATIONS SUPERINTENDENT General Surgery 08/10/24 Compliance Investigator Relationship Specialty Start Date End Date Kena Monae MD [address] [place] [address] 55155 PCP - General Internal Medicine 12/21/22 Jarett Phelan DO [address] [place] [address] [place] [address] Physician Orthopaedic Trauma 04/17/20 Hali Holder, OTR/L [address] [place] [address] 74926 Occupational Therapist Occupational Therapy 04/17/20 Frank Brown MD [address] [place] [phone] Physician Orthopaedic Hand Service 05/15/20 Chika Painter CHEMISTRY INTERN-PRODUCTION SUPPORT MANAGER [address] [place] [address] [place] [address] SPACE SYSTEMS OPERATIONS SUPERINTENDENT Anesthesiology 01/15/21 Aileen Garcia DO [address] [place] [address] 26527 Fellow Electrophysiology 07/16/22 Tavares Thornton MD [address] [place] [phone] Physician Cardiology 12/10/22 Bjorn Degroot MD [address] [place] [address] [place] [address] Fellow Gastroenterology 08/12/23 Eleni Manrique MD [address] [place] [address] [place] [address] Physician Cardiology 10/14/23 Frandy Bonilla MD [address] [place] [address] [place] [address] Fellow Gastroenterology 02/17/24 Cat Wang, CHEMISTRY INTERN-PRODUCTION SUPPORT MANAGER [address] [place] [address] 62997 SPACE SYSTEMS OPERATIONS SUPERINTENDENT Urology 03/16/24 Estela Tate MD [address] [place] [address] 82599 Physician Urology 05/18/24 Dereje Clark, CHEMISTRY INTERN-PRODUCTION SUPPORT MANAGER [address] [place] [address] 01325 SPACE SYSTEMS OPERATIONS SUPERINTENDENT General Surgery 08/10/24 Compliance Investigator Relationship Specialty Start Date End Date Kena Monae MD [address] [place] [address] 71814 PCP - General Internal Medicine 12/21/22 Jarett Phelan DO [address] [place] [address] [place] [address] Physician Orthopaedic Trauma 04/17/20 Hali Holder OTR/L [address] [place] [address] 07038 Occupational Therapist Occupational Therapy 04/17/20 Frank Brown MD [address] [place] [phone] Physician Orthopaedic Hand Service 05/15/20 Chika Painter CHEMISTRY INTERN-PRODUCTION SUPPORT MANAGER [address] [place] [address] [place] [address] SPACE SYSTEMS OPERATIONS SUPERINTENDENT Anesthesiology 01/15/21 Aileen Garcia DO [address] [place] [address] 74460 Fellow Electrophysiology 07/16/22 Tavares Thornton MD [address] [place] [id number] Physician Cardiology 12/10/22 Bjorn Degroot MD [address] [place] [address] [place] [address] Fellow Gastroenterology 08/12/23 Eleni Manrique MD [address] [place] [address] [place] [address] Physician Cardiology 10/14/23 Frandy Bonilla MD [address] [place] [address] [place] [address] Fellow Gastroenterology 02/17/24 Cat Wang CHEMISTRY INTERN-PRODUCTION SUPPORT MANAGER [address] [place] [address] 79063 SPACE SYSTEMS OPERATIONS SUPERINTENDENT Urology 03/16/24 Estela Tate MD [address] [place] [address] 43000 Physician Urology 05/18/24 Dereje Clark CHEMISTRY INTERN-PRODUCTION SUPPORT MANAGER [address] [place] [address] [id number] SPACE SYSTEMS OPERATIONS SUPERINTENDENT General Surgery 08/10/24 Quique Davies MD [address] [place] [address] 44061 Physician Pulmonary Medicine 09/14/24 Compliance Investigator Relationship Specialty Start Date End Date Kena Monae MD [address] [place] [address] 24871 PCP - General Internal Medicine 12/21/22 Jarett Phelan DO [address] [place] [address] [place] [address] Physician Orthopaedic Trauma 04/17/20 Hali Holder OTR/L [address] [place] [address] 36166 Occupational Therapist Occupational Therapy 04/17/20 Frank Brown MD [address] [place] [address] Physician Orthopaedic Hand Service 05/15/20 Chika Painter APRN-PRODUCTION SUPPORT MANAGER [address] [place] [address] [place] [address] SPACE SYSTEMS OPERATIONS SUPERINTENDENT Anesthesiology 01/15/21 Aileen Garcia DO [address] [place] [address] 34707 Fellow Electrophysiology 07/16/22 Tavares Thornton MD [address] [place] [address] Physician Cardiology 12/10/22 Bjorn Degroot MD [address] [place] [address] [place] [address] Fellow Gastroenterology 08/12/23 Eleni Manrique MD [address] [place] [address] [place] [address] Physician Cardiology 10/14/23 Frandy Bonilla MD [address] [place] [address] [place] [address] Fellow Gastroenterology 02/17/24 Cat Wang, CHEMISTRY INTERN-PRODUCTION SUPPORT MANAGER [address] [place] [address] 87433 SPACE SYSTEMS OPERATIONS SUPERINTENDENT Urology 03/16/24 Estela Tate MD [address] [place] [address] 26169 Physician Urology 05/18/24 Dereje Clark, CHEMISTRY INTERN-PRODUCTION SUPPORT MANAGER [address] [place] [address] 15619 SPACE SYSTEMS OPERATIONS SUPERINTENDENT General Surgery 08/10/24 Quique Davies MD [address] [place] [address] 16683 Physician Pulmonary Medicine 09/14/24 Compliance Investigator Relationship Specialty Start Date End Date Kena Monae MD [address] [place] [address] 46525 PCP - General Internal Medicine 12/21/22 Jarett Phelan DO [address] [place] [address] [address] [place], [place] [address] Physician Orthopaedic Trauma 04/17/20 Hali Holder, OTR/L [address] [place] [id number] Occupational Therapist Occupational Therapy 04/17/20 Frank Brown MD [address] [place] [address] Physician Orthopaedic Hand Service 05/15/20 Chika Painter CHEMISTRY INTERN-PRODUCTION SUPPORT MANAGER [address] [place] [address] [place] [address] [employer]ACE SYSTEMS OPERATIONS SUPERINTENDENT Anesthesiology 01/15/21 Aileen Garcia DO [address] [place] [id number] Fellow Electrophysiology 07/16/22 Tavares Thornton MD [address] [place] [address] Physician Cardiology 12/10/22 Bjorn Degroot MD Fellow Gastroenterology 08/12/23 Eleni Manrique MD [address] [place] [address] [address] [place] [id number] Physician Cardiology 10/14/23 Frandy Bonilla MD [address] [place] [address] DR [place] [id number] Fellow Gastroenterology 02/17/24 Cat Wang CHEMISTRY INTERN-PRODUCTION SUPPORT MANAGER [address] [place] [id number] SPACE SYSTEMS OPERATIONS SUPERINTENDENT Urology 03/16/24 Estela Tate MD [address] [place] [id number] Physician Urology 05/18/24 Dereje Clark CHEMISTRY INTERN-PRODUCTION SUPPORT MANAGER [address] [place] [phone] SPACE SYSTEMS OPERATIONS SUPERINTENDENT General Surgery 08/10/24 Quique Davies MD [address] [place] [id number] Physician Pulmonary Medicine 09/14/24 Compliance Investigator Relationship Specialty Start Date End Date Kena Monae MD [address] [place], [place] [id number] PCP - General Internal Medicine 12/21/22 Jarett Phelan DO [address] [place] [address] [place] [address] Physician Orthopaedic Trauma 04/17/20 Hali Holder OTR/L [address] [place], [place] [id number] Occupational Therapist Occupational Therapy 04/17/20 Frank Brown MD [address] [place] [address] Physician Orthopaedic Hand Service 05/15/20 Chika Painter APRN-PRODUCTION SUPPORT MANAGER [address] [place] [address] [place] [address] SPACE SYSTEMS OPERATIONS SUPERINTENDENT Anesthesiology 01/15/21 Aileen Garcia DO [address] [place] [id number] Fellow Electrophysiology 07/16/22 Tavares Thornton MD [address] [place] [address] [phone] (Work) Physician Cardiology 12/10/22 Bjorn Degroot MD Fellow Gastroenterology 08/12/23 Eleni Manrique MD [address] [place] [address] DR [place] [address] Physician Cardiology 10/14/23 Frandy Bonilla MD [address] [place] [address] [place] [address] Fellow Gastroenterology 02/17/24 Cat Wang, CHEMISTRY INTERN-PRODUCTION SUPPORT MANAGER [address] [place] [address] SPACE SYSTEMS OPERATIONS SUPERINTENDENT Urology 03/16/24 Estela Tate MD [address] [place] [address] Physician Urology 05/18/24 Dereje Clark, CHEMISTRY INTERN-PRODUCTION SUPPORT MANAGER [address] [place] [address] SPACE SYSTEMS OPERATIONS SUPERINTENDENT General Surgery 08/10/24 Quique Davies MD [address] [place] [address] Physician Pulmonary Medicine 09/14/24 Reason for Visit (unrecogniz ed section and content) Reason Comments Hip symptoms/complaints Rt hip Reason Comments No Show Specialty Diagnoses / Procedures Referred By Contac t Referred To Contact Radiology Diagnoses Chest pain on exertion Procedures NM HT MUSCLE IMAGE SPECT, MULTI HT MUSCLE IMAGE SPECT, MULT Card Invasive [address] [place] [address] [facility] CARD INVASIVE [address] [place] [address] Referral ID Status Reason Start Date Expiration Date V isits Requested Visits Authorized [id number] Closed Transfer of Care-[facility] 10/03/2022 12/02/2022 1 1 Reason Comments New patient, to establish relationship Pain In multiple sites Reason Comments New patient, to establish relationship Pain In multiple sites Reason Onset Date Comments Speak with Nurse 12/28/2022 Reason Comments Complete exam Routine follow up Specialty Diagnoses / Procedures Referred By Arvind staton Referred To Contact Oral Surgery Diagnoses Dental caries Maria Luisa Mcbride, DMD [address] [place] [address] [facility] ORAL SURGERY [address] [place] [address] Referral ID Status Reason Start Date Expiration Date V isits Requested Visits Authorized [id number] Pending Review 12/14/2022 12/15/2023 3 3 Reason Comments Refill Reason Onset Date Comments No Answer 06/27/2023 Reason Onset Date Comments rectal pain and bleeding 07/21/2023 Advice/health education 07/21/2023 Specialty Diagnoses / Procedures Referred By Arvind staton Referred To Contact Cardiology Diagnoses S/P IVC filter Panda Johnson MD [address] [place] [address] [place] [address] [facility] CARDIOLOGY HV [address] [place] [address] Referral ID Status Reason Start Date Expiration Date V isits Requested Visits Authorized [id number] Authorized 06/13/2023 06/11/2024 3 3 Specialty Diagnoses / Procedures Referred By Arvind staton Referred To Contact Radiology Diagnoses Presence of IVC filter Procedures XR ABDOMEN AP 1 VIEW Eleni Manrique MD [address] [place] [address] [place] [address] [facility] DIAGNOSTIC RADIOLOGY [address] [place] [address] [place] [address] Referral ID Status Reason Start Date Expiration Date Visits Re quested Visits Authorized [id number] Closed 10/05/2023 10/04/2024 1 1 Reason Onset Date Comments Discuss results test/procedures 10/18/2023 Specialty Diagnoses / Procedures Referred By Arvind staton Referred To Contact Radiology Diagnoses Other chest pain Procedures CTA CARDIAC CORONARY W/ CONTRAST Eleni Manrique MD [address] [place] [address] [place] [address] [facility] CT SCAN Referral ID Status Reason Start Date Expiration Date Visits Re quested Visits Authorized [id number] Closed 10/05/2023 10/04/2024 1 1 Reason Onset Date Comments Immunization 12/13/2023 Reason Comments Hemoptysis "I've thrown up bloo d three times in the last 60 days." Other urination problems Intermittent lo ss of bladder "for years" states just got bad "a month or two ago." Was seen at Urgent Care, UA completed, given antibiotics for prostatitis. Reason Comments urgent care follow up Referral to Specialist Reason Comments [facility] follow-up APPOINTMENT SCHEDULING Appointment Confirmation Reason Comments NEW PATIENT/TEACHING Reason Comments New patient, to establish relationship A fter urgent care Incontinence of urine, not enuresis Specialty Diagnoses / Procedures Referred By Arvind staton Referred To Contact Urology Diagnoses Urgency incontinence Deonte Khan DO [address] [place] [address] [facility] UROLOGIC SURGERY [address] [place] [address] Referral ID Status Reason Start Date Expiration Date V isits Requested Visits Authorized [id number] Authorized 01/16/2024 01/15/2025 3 3 Reason Onset Date Comments APPOINTMENT SCHEDULING 03/21/2024 Reason Onset Date Comments Left Message To Call Back 03/21/2024 Reason Comments Chest symptoms/complaints Pt endorsing i ntermittent chest pain which worsens with inspiration for the last two months. Endorses smoking tobacco, denies drug use. Denies recent flu-like symptoms. Specialty Diagnoses / Procedures Referred By Arvind staton Referred To Contact Radiology Diagnoses Frequency of urination Urgency of urination Urge incontinence of urine Procedures US KIDNEY+BLADDER Cat Wang, CHEMISTRY INTERN-PRODUCTION SUPPORT MANAGER [address] [place] [address] [facility] ULTRASOUND [address] [place] [address] Referral ID Status Reason Start Date Expiration Date Visits Re quested Visits Authorized [id number] Closed 03/14/2024 03/14/2025 1 1 Reason Comments Procedure Cystoscopy Specialty Diagnoses / Procedures Referred By Arvind staton Referred To Contact Urology Diagnoses Bladder mass Abnormal finding on imaging Procedures CYSTOURETHROSCOPY (SEP PROC) Cat Wang, CHEMISTRY INTERN-PRODUCTION SUPPORT MANAGER [address] [place] [address] [facility] SURGERY PROCEDURE GLADYS [address] [place] [phone] Referral ID Status Reason Start Date Expiration Date V isits Requested Visits Authorized [id number] Closed Consultation -[facility] 04/01/2024 04/01/2025 1 1 Specialty Diagnoses / Procedures Referred By Contac t Referred To Contact Urology Diagnoses Bladder mass Abnormal finding on imaging Procedures CYSTOURETHROSCOPY (SEP PROC) Nahum Wangin, CHEMISTRY INTERN-PRODUCTION SUPPORT MANAGER [address] [place] [address] Phone: tel: fax: [facility] SURGERY PROCEDURE GLADYS [address] [place] [address] Phone: tel: Referral ID Status Reason Start Date Expiration Date V isits Requested Visits Authorized [id number] Closed Consultation -[facility] 04/01/2024 04/01/2025 1 1 Reason Comments chest pain Reason Onset Date Comments Discuss results test/procedures 08/28/2023 Reason Comments Blood test Reason Comments Monitoring/follow-up Reason Comments shortness of breathe Vertigo/dizziness symptoms Reason Onset Date Comments APPOINTMENT SCHEDULING 07/18/2024 Medicare wellness scheduled 08-22-24. Reason Comments Consult with specialist Specialty Diagnoses / Procedures Referred By Arvind t Referred To Contact General Surgery Diagnoses Incontinence of feces, unspecified fecal incontinence type Grade I hemorrhoids Justine Batista MD [address] [place] [phone] Phone: tel: fax: [facility] SURGERY GENERAL [address] [place] [address] Phone: tel: Referral ID Status Reason Start Date Expiration Date V isits Requested Visits Authorized [id number] Pending Review 07/24/2024 07/24/2025 3 3 Reason Comments Medicare Wellness Reason Comments Nausea & Vomiting States he has been d ry heaving, and states he has had some emesis of stomach acid and come of digested food, x 1-2 weeks Some abd and chest pain with same Diarrhea Frequent BM of loose stools x 2 weeks Reason Onset Date Comments APPOINTMENT SCHEDULING 08/19/2024 Medicare AWV Appt was rescheduled to 08-22-24. Reason Onset Date Comments Refill 03/14/2025 Reason Comments Immunization (unrecognized sect ion and content) No Status Records FoundNo Status Records FoundNo Status Records FoundNo Status Records FoundNo Status Records FoundNo Status Records Found INFORMATION SOURCE (unrecogn ized section and content) DATE CREATED AUTHOR 12/09/2022 [facility] DATE CREATED AUTHOR AUTHOR'S ORGANIZ ATION 05/31/2023 [facility] ([place]) DATE CREATED AUTHOR AUTHOR'S ORGANIZ ATION 08/26/2023 Provider Locatio ns DATE CREATED AUTHOR AUTHOR'S ORGANIZ ATION 03/01/2025 [facility] DATE CREATED AUTHOR AUTHOR'S ORGANIZ ATION 04/12/2025 [facility] [employer] [facility] DATE CREATED AUTHOR AUTHOR'S ORGANIZ ATION 04/21/2025 [facility] Ce nter Source Comments (unrecognize d section and content) In the event this informatio n is protected by the Federal Confidentiality of Alcohol and Drug Abuse Patient Records regulations: The Federal rules restrict any use of the information to criminally investigate or prosecute any alcohol or drug abuse patient.[facility] the event this information is protected by the Federal Confidentiality of Alcohol and Drug Abuse Patient Records regulations: The Federal rules restrict any use of the information to criminally investigate or prosecute any alcohol or drug abuse patient.[facility] the event this information is protected by the Federal Confidentiality of Alcohol and Drug Abuse Patient Records regulations: The Federal rules restrict any use of the information to criminally investigate or prosecute any alcohol or drug abuse patient.[facility] the event this information is protected by the Federal Confidentiality of Alcohol and Drug Abuse Patient Records regulations: The Federal rules restrict any use of the information to criminally investigate or prosecute any alcohol or drug abuse patient.[facility] Continuous Active and Recently Administ ered Medications (unrecognized section and content) Medication Order 03/25/2024 03/26/2024 03/27/2024 sodium chloride 0.9 % iv infusion at 75 mL/hr, Intravenous, CONTINUOUS, Starting on Mon03/27/24 at 1130, Until Discontinued 1130 (Due) Scheduled Medication Order 03/27/2024 03/28/2024 03/29/2024 iohexol (OMNIPAQUE) 350 MG/ML injection (COMPLETED) 75 mL, Intravenous Push, Once at Radiology exam, 1 dose, Starting on Mon03/29/24 at 1744, Until Mon03/29/24 at 1744, Imaging Protocol Orders 174 (Given - Provid er: Chaya Rosario - Comment: [id number]) Continuous Medication Order 08/01/2023 08/02/2023 08/03/2023 sodium chloride 0.9 % iv infusion Intravenous, at 75 mL/hr, CONTINUOUS, Starting on Kaela 2/22/24 at 1100, Until Discontinued 1100 (Due) PRN Medication Order 08/01/2023 08/02/2023 08/03/2023 naloxone (NARCAN) 0.4 MG/ML injection 0.4 mg, Intravenous Push, PRN, Starting on Kaela 08/03/23 at 1050, Until Discontinued, Respiratory Rate Less Than 8 for adults and less than 12 for Peds or for suspected overdose, PACU Now ondansetron (ZOFRAN) 4 MG/2ML injection 4 mg, Intravenous Push, PACU ONCE PRN, Starting on Kaela 08/03/23 at 1050, Until Kaela 08/03/23 at 1649, Nausea, Vomiting, PACU Now sodium chloride 0.9 % 0.9 % injection 3 mL, Intravenous Push, PRN, Starting on Kaela 08/03/23 at 1050, Until Discontinued, For medication administration and blood draw, PACU Now FOR RECORDS PERTAINING TO PATIENTS WHO ARE OR HAVE BEEN ENROLLED IN A CHEMICAL DEPENDENCY/SUBSTANCEABUSE PROGRAM, SOME INFORMATION MAY BE OMITTED. This clinical summary was aggregated from multiple sources. Caution should be exercised in using it in the provision of clinical care. This summary normalizes information from multiple sources, and as a consequence, information in this document may materially change the coding, format and clinical context of patient data. In addition, data may be omitted in some cases. CLINICAL DECISIONS SHOULD BE BASED ON THE PRIMARY CLINICAL RECORDS. [employer] [facility]. provides no warranty or guarantee of the accuracy or completeness of information in this document.
[2025-04-22 21:03] VITALS: RESP 16; O2SAT 98
[2025-04-22 21:07] LABS: Hematocrit 41.5 % (40-54); Hemoglobin 13.8 g/dL (13.0-16.5); Immature Granulocytes Count 0.010 X10^3/uL (0.0-0.0); Mean Corp Hgb Conc 33.3 g/dL (32-36); Mean Corpuscular Volume 88.7 fL (80-94); Mean Platelet Vol. 10.8 fl (6.2-12.0); NRBC Flagged by Analyzer 0 % (0-5); Platelet Count 271 K/mm3 (150-450); RBC Distribution Width CV 13.2 % (11.6-14.6); RBC Distribution Width SD 42.5 fl (35.1-43.9); Red Blood Count 4.68 M/mm3 (4.6-6.2); White Blood Count 5.7 K/mm3 (4.4-11.0)
[2025-04-22 21:28] LABS: Alcohol, Blood (Medical)-Serum < 10.1 mg/dL (<=10.0); Anion Gap 17 (5-15); BUN 7 mg/dL (4-19); BUN/Creat Ratio 7.1 RATIO (10-20); Calcium,Total 10.0 mg/dL (7.6-11.0); Carbon Dioxide 19.3 mmol/L (21.0-32.0); Chloride 100 mmol/L (98-108); Estimated Creatinine Clearance 114.33 ml/min (50-250); Glucose 96 mg/dL (70-99); Potassium 3.6 mmol/L (3.3-5.1)
[2025-04-22 21:46] LABS: Barbiturate Urine NEGATIVE (< 200 ng/mL); Benzodiazepine Urine NEGATIVE (< 200 ng/mL); PCP Urine NEGATIVE (< 25 ng/mL); THC Urine NEGATIVE (< 50 ng/mL)
--- NOTE | 2025-04-22 22:01 | CM.ED ---
Social Work Handoff given to Petrona at [facility] due to timing of admission. Petrona stated he would be in to assess patient. Rosario Castillo, INFRASTRUCTURE MANAGER, [employer]
[2025-04-22] MEDS: Psyllium 1 PACKET PO (22:32)
[2025-04-23 05:11] VITALS: BP 139/98; PULSE 96; RESP 18; O2SAT 98
--- NOTE | 2025-04-23 05:11 | ED.RN ---
Addendum entered by Ana Salmon 04/23/25 05:54: The previous note was closed prematurely. This RN asked the patient again to have a seat on the bed so that this RN could obtain vital signs. The patient then stated, "well you seem like a bitch." The patient was then redirected to the bed by MARYAM Calero who was also at the patient's bedside. This RN obtained vital signs and educated the patient on his pending placement to another facility. Well at the bedside, the patient stated, "well I am fucking bored in here, I don't just want to be sitting here, it's been too fucking long." The patient then asked to go out for a smoke or to have his vape pen. This RN explained that the patient is not allowed to smoke in the hospital or the premises. Dr. Mishra offered the patient nicotine gum or nicotine patch, the patient refused both stating that he only wants his vape. This RN explained to the patient that he was going to [facility] and his ride will be here at 0930 to transport him to the accepting facility. Original Note: The patient came out of the patient's room and the patient stated "when the fuck am I going to leave this place, I have things to do and this ain't fair to keep me locked up in here." This RN asked the patient to reenter the room and sit down on the bed so this RN could obtain the patient's vital signs and this RN informed the patient that he would be placed at a facility for further evaluation. The patient began to raise his voice at this RN and stated "yeah sure but that's not going to change the fact that I want to leave." The patient then went on to complain that this RN brought the patient a blanket and put the blanket on the patient when he did not ask for this RN to do that. This RN had previously noticed the patient sleeping with the bed in an upright position and with his arms underneath both his gown sleeves, with the lights on and tv on full volume. During that previous notification, this RN asked the patient if the blanket was okay, if the patient wanted the bed lowered, the lights turned off, and the patient was agreeable to all of these and responded with a yes, thank you but refused this RN's offer about turning the tv volume down to assist in the patient's sleep. This patient
[2025-04-23] MEDS: Nicotine 4mg Gum (PBKC) 4 MG GUM PO (07:30)
[2025-04-23 08:30] VITALS: BP 130/77; PULSE 80; RESP 20; TEMP 36.7; O2SAT 98
== END 2025-04-23 08:37 ==
PROVIDERS: Emergency Provider Emergency Medicine; Visit Provider Emergency Medicine
DX: F29 Unspecified psychosis not due to a substance or known physiological condition (principal); Z89.611 Acquired absence of right leg above knee; R05.9 Cough, unspecified; F17.210 Nicotine dependence, cigarettes, uncomplicated
CPT/HCPCS: 80048; 80307; 82077; 85025; 99283; A4216